=== PATIENT | male | born 1990 ===

== ENCOUNTER 2020-09-22 12:30 | Inpatient (IN) | payer MEDICAID, OTHER ==
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
[~2020-09-22] VITALS: Ht 180.3 cm; Wt 116.0 kg
[~2020-09-22 12:30] MED LIST: ACETAMINOPHEN 500 MG TAB (TYLENOL) PO PRN; ACHD5005 PO; ALPRAZolam 0.25 MG (XANAX) TAB PO PRN; APIX5TAB PO; APIXABAN 5 MG (ELIQUIS) TABLET PO SCH; ATOR40TA PO; BISACODYL 10 MG SUPP (DULCOLAX) PR PRN; CALCIUM CARBONATE 500 MG (TUMS) TAB.CHEW PO PRN; DOXYCYCLINE PO; FLEET ENEMA ADULT 1 EA BTL PR PRN; FLUO20CA42 PO; HYDROcodone/APAP 5 MG/325 MG (LORTAB) TAB PO PRN; IBUP-30 PO; IBUPROFEN TABLET 200 MG TAB PO PRN; LACO100T2 PO; LACO200T2 PO; LOPERAMIDE 2 MG (IMODIUM) TABLET PO PRN; MELATONIN 3 MG TABLET PO PRN; NF-ZONI100 PO; diphenhydrAMINE 25 MG TAB (BENADRYL) PO PRN; guaiFENesin/CODEINE (ROBITUSSIN AC) 10ML UDC PO PRN
--- NOTE | 2020-09-22 12:30 | NUR ---
WILIAN PATITO Rascon admitted to room 223-1, with an admitting diagnosis of CVA, on 09/22/20 from [facility] via [facility], accompanied by [facility] STAFF. PATITO CEDENO introduced to surroundings, call light, bed controls, phone, TV, temperature control, lights, meal times, smoking policy, visitor policy, side rail policy, bathrooms and showers. Patient Rights given to patient in the handbook. PATITO CEDENO verbalizes understanding that [facility] is not responsible for the loss or damage to any personal effects or valuables that are kept in the patient's possession during their hospitalization. The following Patient Care Plans were discussed with the PATIENT: Discharge Planning, IMPAIRED MOBILITY, UNILATERAL NEGLECT, SELF CARE DEFICIT, IMPAIRED COMMUNICATION, HIGH RISK: ASPIRATION, KNOWLEDGE DEFICIT: CVA, and DYSPHAGIA. PATITO CEDENO verbalizes understanding of Interdisciplinary Patient Education. Patient received Patient Rights Booklet, which includes Privacy Act Statement and Data Collection Information Summary.
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
[2020-09-22] MEDS: DOCUSATE SODIUM 100 MG (COLACE) CAP PO SCH ×3 (15:10→21:06)
[2020-09-22] MEDS: polyethylene glycoL POWDER 17 GM (MIRALAX) PACK PO SCH ×3 (15:10→20:14)
[2020-09-22] MEDS: SENNA W/DOCUSATE (SENOKOT S) TABLET PO SCH ×3 (15:11→21:05)
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
--- NOTE | 2020-09-22 15:53 | NUR ---
OSKAR, PHARMACIST, INFORMED THAT FAMILY IS UNABLE TO BRING IN HOME MEDICATION (VIMPAT) FOR AT LEAST 48 HOURS. OSKAR STATES THAT HE WILL WORK ON GETTING IT FROM AN OUTSIDE PHARMACY.
[2020-09-22 17:58] VITALS: BP 136/89
[2020-09-22 18:41] LABS: BASOPHILS % (AUTO) 0 % (0-10); EOSINOPHILS # (AUTO) 0.1 10^3/uL (0.0-0.3); EOSINOPHILS % (AUTO) 1 % (0-10); HEMATOCRIT 43 % (40-54); HEMOGLOBIN 14.8 g/dL (13.3-17.7); LYMPHOCYTES # (AUTO) 1.6 10^3/uL (1.0-4.0); LYMPHOCYTES % (AUTO) 19 % (12-44); MEAN CORPUSCULAR HEMOGLOBIN 31 pg (25-34); MEAN CORPUSCULAR HGB CONC 35 g/dL (32-36); MEAN CORPUSCULAR VOLUME 90 fL (80-99); MEAN PLATELET VOLUME 10.4 fL (9.0-12.2); MONOCYTES # (AUTO) 0.6 10^3/uL (0.0-1.0); MONOCYTES % (AUTO) 7 % (0-12); NEUTROPHILS # (AUTO) 6.2 10^3/uL (1.8-7.8); NEUTROPHILS % (AUTO) 73 % (42-75); PLATELET COUNT 238 10^3/uL (130-400); WHITE BLOOD COUNT 8.5 10^3/uL (4.3-11.0)
[2020-09-22 19:07] LABS: ALBUMIN 4.1 GM/DL (3.2-4.5); CHLORIDE 104 MMOL/L (98-107); POTASSIUM 4.2 MMOL/L (3.6-5.0); SODIUM 137 MMOL/L (135-145)
[2020-09-22 19:08] LABS: CALCIUM 9.1 MG/DL (8.5-10.1)
[2020-09-22 19:09] LABS: GLUCOSE 104 MG/DL (70-105)
[2020-09-22 19:10] LABS: TOTAL PROTEIN 7.2 GM/DL (6.4-8.2)
[2020-09-22 19:11] LABS: BILIRUBIN,TOTAL 0.6 MG/DL (0.1-1.0); CARBON DIOXIDE 22 MMOL/L (21-32)
[2020-09-22 19:13] LABS: ALKALINE PHOSPHATASE 76 U/L (40-136); CREATININE SERUM 0.88 MG/DL (0.60-1.30); GFR ESTIMATED > 60
[2020-09-22 19:14] LABS: BUN/CREATININE RATIO 17
[2020-09-22 19:16] LABS: ALANINE AMINOTRANSFERASE 70 U/L (0-55)
[2020-09-22] MEDS ORDERED: VIMPAT 50 MG PO NR (21:00)
[2020-09-22] MEDS ORDERED: DOXYCYCLINE 50 MG PO SCH (21:00)
[2020-09-22] MEDS ORDERED: ZONISAMIDE 100 MG CAP (ZONEGRAN) NON-FORMULARY PO SCH (21:00)
[2020-09-22] MEDS ORDERED: VIMPAT 200 MG TABLET PO NR (21:00)
[2020-09-22] MEDS: DOXYCYCLINE 100 MG (VIBRAMYCIN) TABLET PO SCH (21:06)
[2020-09-22] MEDS: APIXABAN 5 MG (ELIQUIS) TABLET PO SCH (21:06)
[2020-09-22] MEDS: ACETAMINOPHEN 325 MG TABLET PO PRN (23:40)
--- NOTE | 2020-09-23 05:47 | Individualized Plan of Care ---
Individualized Plan of Care Rehab Nursing IPOC Order Admission Date Sep 22, 2020 at 12:30 Current Orders Orders Admission Order(Inpt,Obs,Sdc) (09/21/20 20:25) Vital Signs: Per Unit Policy ( 08,16,00 (09/21/20 20:25) Ventura Urias 09,21 (09/21/20 20:25) Sequential Compression Device Q4H (09/21/20 20:25) Cage/Vault Supervisor-Inpt Rehab Con (09/21/20 20:25) Rehab Nursing Orders-Ipoc (09/21/20 20:25) Physical Therapy Rehab Orders (09/21/20 20:25) Occupational Therapy Rehab Ord (09/21/20 20:25) Speech Therapy Rehab Orders (09/21/20 20:25) Cbc With Automated Diff (09/22/20 06:00) Comprehensive Metabolic Panel (09/22/20 06:00) General/Regular (09/22/20 Breakfast) Intake & Output 06,14,22 (09/21/20 20:25) Precautions (Aru) (09/21/20 20:25) Seizure Precautions (09/21/20 20:25) Weekly Weight WEEK (09/21/20 20:25) Rehab-Intensity Of Therapy (09/21/20 20:25) Initiate Admission Nursing Pro .admission (09/21/20 20:25) Acetaminophen Tablet (Tylenol Tablet) (09/21/20 20:30) Alprazolam Tablet (Xanax Tablet) (09/21/20 20:30) Calcium Carbonate Chew Tablet (Antacid C (09/21/20 20:30) Diphenhydramine Tablet (Benadryl Tablet) (09/21/20 20:30) Docusate Sodium Capsule (Colace Capsule) (09/21/20 21:00) Docusate Sodium Capsule (Colace Capsule) (09/21/20 20:30) Bisacodyl Suppository (Dulcolax Supposit (09/21/20 20:30) Lactulose Oral Solution (Enulose Oral So (09/21/20 20:30) Na Phos/Na Biphos Enema (Fleet Enema Teo (09/21/20 20:30) Guaifenesin/Codeine Syrup (Robitussin Ac (09/21/20 20:30) Loperamide Tablet (Imodium Tablet) (09/21/20 20:30) Melatonin Tablet (Melatonin Tablet) (09/21/20 20:30) Polyethylene Glycol Powder Pkt (Miralax (09/21/20 21:00) Ondansetron Oral Dissolve Tab (Zofran (09/21/20 20:30) Senna S Tablet (Senokot S Tablet) (09/21/20 21:00) Apixaban Tablet (Eliquis Tablet) (09/21/20 21:00) Code/Resuscitation (09/21/20 20:25) Initiate Admission Nursing Pro .admission (09/21/20 20:25) Dys2 Mechanically Altered (09/22/20 Lunch) Apixaban Tablet (Eliquis Tablet) (09/22/20 21:00) Atorvastatin Tablet (Lipitor) (09/22/20 21:00) Fluoxetine Capsule (Prozac Capsule) (09/23/20 09:00) Hydrocodone/Apap 5/325 Tablet (Lortab 5 (09/22/20 12:30) Ibuprofen Tablet (Motrin Tablet) (09/22/20 12:30) Zonisamide (Non-Formulary) (Zonegran (No (09/22/20 21:00) (Nf) [Doxycycline] (09/22/20 21:00) Admission Arrival Bed Request (09/22/20 12:30) Acetaminophen Tablet/Caplet (Tylenol T (09/22/20 14:00) Doxycycline Hyclate Tablet (Vibramycin T (09/22/20 21:00) Ambulate (09/22/20 14:20) Sequential Compression Device Q4H (09/22/20 14:20) Dvt/Vte Risk - Notifiy Physici Q4H (09/22/20 14:20) Patient Visit (09/22/20 ) Speech Sound Lang Comp (09/22/20 ) Treat. Speech/Lang/Voice (09/22/20 ) Dysphagia Evaluation Std (09/22/20 ) Dysphagia Therapy (09/22/20 ) Consult Cardiology (09/22/20 16:20) (Nf) Lacosamide (Vimpat) (09/22/20 21:00) (Nf) Lacosamide (Vimpat) (09/22/20 21:00) Lacosamide Tablet (Non-Form) (Vimpat Tab (09/23/20 09:00) Lacosamide Tablet (Non-Form) (Vimpat Tab (09/23/20 10:27) Lacosamide Tablet (Non-Form) (Vimpat Tab (09/23/20 21:00) Patient Visit (09/23/20 ) Functional Activities, Ea 15 (09/23/20 ) Exercise Therap, Ea 15 Min (09/23/20 ) Patient Visit (09/23/20 ) Dysphagia Therapy (09/23/20 ) Treat. Speech/Lang/Voice (09/23/20 ) Patient May Use Own Med,Single (Patient (09/23/20 19:00) Zonisamide (Non-Formulary) (Zonegran (No (09/23/20 21:00) Lacosamide Tablet (Non-Form) (Vimpat Tab (09/23/20 21:00) Patient's Own Med(Rx Use Only) (Patient' (09/23/20 21:00) Rehab Nursing Orders: Ongoing Assess. of Cognitive Status, Ongoing Assess. of Function Status, Bladder Management, Bladder Scan, Bladder Training, Bowel Management, Bowel Training, Disease Management & Educaiton, DVT Prophylaxis, Fall Prevention, Fluid/Electrolyte/Nutrition Mgmt, Infection Prevention, Medication Management & Education, Management of Risks & Complications, Management of Skin Intergrity, Nutrition Management, Pain Management, Patient/Family Support, Safety Management, Swallow Precautions Intensity of Therapy to be met Patient to be seen: Min.3h per day/5 of 7d PT IPOC Problem List: Activity Tolerance, Functional Strength, Safety, Balance, Gait, Transfer, Bed Mobility, ROM Treatment Plan: Continue Plan of Care Bed Mobility, Education, Functional Activity Jeramy, Functional Strength, Group Therapy, Gait, Safety, Therapeutic Exercise, Transfers Treatment Duration: Oct 13, 2020 Frequency: At least 5 of 7 days/Wk (IRF) Estimated Hrs Per Day: 1.5 hours per day OT IPOC Problems: Decreased Activ Tolerance, Decreased UE Strength, Dependent Transfers, Impaired Bed Mobility, Impaired Cognition, Impaired Coordination, Impaired Funct Balance, Impaired I ADL's, Impaired Self-Care Skills, Restricted Funct UE ROM, Visual-Perceptual Deficit OT Treatment, Training and Edu: Yes Plan of Care: ADL Retraining, Functional Mobility, UE Funct Exercise/Act, UE Neuromus Re-Ed/Coord Treatment Duration: Oct 20, 2020 Frequency: At least 5 of 7 days/Wk (IRF) Estimated Hrs Per Day: 1.[address] IPOC Speech Therapy Treatment Plan: Continue Plan of Care Treatment Duration: Oct 12, 2020 Frequency: 4 times per week (Patient will receive skilled ST 4 to 5x per week) Estimated Hrs Per Day: .5 hour per day Cage/Vault Supervisor/Case Mgmt Cage/Vault Supervisor/Case Managemen: Discharge Planning Dietitian/Airworthiness Safety Inspector Dietitian/Airworthiness Safety Inspector to monitor nutritional status and make changes and/or recommendations as needed and work with speech pathology on dietary upgrades as the occur. Physician IPOC Medical Issues being managed closely and that require the 24 hour availability of a physician: Recent catastrophic CVA with severe deficits along with chronic seizure hx now on OAC and needs PFO repaired will be at high risk for decompensation Medical Issues: Bowel/Bladder Function, DVT Prophylaxis, Falls Precautions, Fluid/Electrolyte/Nutrition Balance, Infection Protection, Pain Management, Swallowing Precautions Brief Synthesis of Preadmission Screen, Post-Admission Evaluation, and Therapy Evaluations: PT OT ST will focus on regaining more function and resolving deficits from CVA while increasing the use of assistive devices in order to return home with family Medical Prognosis: Fair Anticipated Length of Stay: 14 days JEB GAMING DO Sep 23, 2020 05:47
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
[2020-09-23 05:58] VITALS: BP 118/78
[2020-09-23] MEDS: ACETAMINOPHEN 325 MG TABLET PO PRN (06:25)
[2020-09-23] MEDS: DOCUSATE SODIUM 100 MG (COLACE) CAP PO SCH ×2 (08:44→19:34)
[2020-09-23] MEDS: APIXABAN 5 MG (ELIQUIS) TABLET PO SCH ×2 (08:45→20:46)
[2020-09-23] MEDS: SENNA W/DOCUSATE (SENOKOT S) TABLET PO SCH ×2 (08:45→19:34)
[2020-09-23] MEDS: polyethylene glycoL POWDER 17 GM (MIRALAX) PACK PO SCH ×2 (08:45→19:34)
[2020-09-23] MEDS: FLUoxetine HCL 20 MG (PROzac) CAP PO SCH (08:46)
[2020-09-23] MEDS ORDERED: LACOSAMIDE 100 MG PO SCH ×3 (09:00→21:00)
--- NOTE | 2020-09-23 11:53 | Occupational Ther Daily Note ---
OT Current Status-Daily Note Subjective Pt. attempts to verbalize a need, and becomes frustrated that he is not able to state what he wants to. Appearance Pt. up in wheelchair with PT. Agrees to therapy. Mental Status/Objective Patient Orientation: Person ADL-Treatment Therapy Code Descriptions/Definitions Functional [place] Measure: 0=Not Assessed/NA 4=Minimal Assistance 1=Total Assistance 5=Supervision or Setup 2=Maximal Assistance 6=Modified [place] 3=Moderate Assistance 7=Complete IndependenceSCALE: Activities may be completed with or without assistive devices. 4-Wosyrelogm-dogmulb completes the activity by him/herself with no assistance from a helper. 5-Set-up or Clean-up Assistance-helper sets up or cleans up; patient completes activity. [place] assists only prior to or following the activity. 4-Supervision or Touching Assistance-helper provides verbal cues and/or touching/steadying and/or contact guard assistance as patient completes activity. Assistance may be provided throughout the activity or intermittently. 3-Partial/Moderate Assistance-helper does LESS THAN HALF the effort. [place] lifts, holds or supports trunk or limbs, but provides less than half the effort. 2-Substantial/Maximal Assistance-helper does MORE THAN HALF the effort. [place] lifts or holds trunk or limbs and provides more than half the effort. 2-Ygxhouomv-nuqoaq does ALL the effort. Patient does none of the effort to complete the activity. Or, the assistance of 2 or more helpers is required for the patient to complete the activity. If activity was not attempted, code reason: 7-Patient Refused. 9-Not Applicable-not attempted and the patient did not perform the activity before the current illness, exacerbation or injury. 10-Not Attempted due to Environmental Limitations-(lack of equipment, weather restraints, etc.). 88-Not Attempted due to Medical Conditions or Safety Concerns. Upper Body Dressing (QC): 4 (SBA seated on side of mat to doff and don shirt. Pt. educated in one arm method, and was able to replicate.) OT/PT co-treat due to need of skilled assistance x 2 for mobility/transfers, and ADL skills. OT addressed right UE and ADLs while PT facilitated weight shifts, mobility, and transfers. Pt. transferred to mat with min assist, with cues to keep weight off right LE. Required mod assist for sit to/from supine. Pt. sat on side of bed and PT educated on shifting weight/attending to right side while OT assisted pt. with shirt and with shaving task. Pt. able to cross midline with left UE while shaving items were placed on right. Pt. able to shave all parts, with assistance from OT to shave face more thoroughly. OT completed gentle PROM to right UE in all planes. No pain noted. No active movement noted. Pt. transferred to wheelchair with min assist, and propelled back to room with cues and min assist at times. Transferred to bed with min assist and completed sit-supine with mod assist. All needs met. Education OT Patient Education: Correct positioning, Exercise program, Modified ADL techniques, Progress toward Goal/Update tx plan, Purpose of tx/functional activities, Reviewed precautions, Rehab process, Transfer techniques Teaching Recipient: Patient Teaching Methods: Demonstration, Discussion Response to Teaching: Verbalize Understanding, Return Demonstration OT Short Term Goals Short Term Goals Time Frame: Oct 06, 2020 Eatin Oral hygiene: 3 Toileting hygiene: 3 Shower/bathe self: 3 Upper body dressin Lower body dressin Putting on/taking off footwear: 3 OT Ornamental Rail Installer Goals Ornamental Rail Installer Goals Time Frame: Oct 20, 2020 Eating (QC): 6 Oral Hygiene (QC): 6 Toileting Hygiene (QC): 4 Shower/Bathe Self (QC): 4 Upper Body Dressing (QC): 5 Lower Body Dressing (QC): 4 On/Off Footwear (QC): 4 Additional Goals: 1-Demonstrate ADL Tasks, 2-Verbalize Understanding, 3-ImproveStrength/Jeramy 1=Demonstrate adherence to instructed precautions during ADL tasks. 2=Patient will verbalize/demonstrate understanding of assistive devices/modifications for ADL. 3=Patient will improve strength/tolerance for activity to enable patient to perform ADL's. OT Education/Plan Problem List/Assessment Assessment: Decreased Activ Tolerance, Decreased UE Strength, Dependent Transfers, Impaired Bed Mobility, Impaired Cognition, Impaired Coordination, Impaired Funct Balance, Impaired I ADL's, Impaired Self-Care Skills, Restricted Funct UE ROM, Visual-Perceptual Deficit Discharge Recommendations Plan/Recommendations: Continue POC Therapy Discharge Recommendati: Post Acute OT Treatment Plan/Plan of Care Treatment,Training & Education: Yes Patient would benefit from OT for education, treatment and training to promote independence in ADL's, mobility, safety and/or upper extremity function for ADL's. Plan of Care: ADL Retraining, Functional Mobility, UE Funct Exercise/Act, UE Neuromus Re-Ed/Coord Treatment Duration: Oct 20, 2020 Frequency: At least 5 of 7 days/Wk (IRF) Estimated Hrs Per Day: 1.5 hours per day Agreement: Yes Rehab Potential: Good Time/GCodes Start Time: 09:00 Stop Time: 10:15 Total Time Billed (hr/min): 75 Billed Treatment Time 1, ADL x 30minutes, FA x 15minutes, Ex x 30minutes AMISH ROBERTO OT Sep 23, 2020 11:53
--- NOTE | 2020-09-23 13:22 | NUR ---
RD ASSESSMENT PMHx: TBI; seizure disorder; stroke; PT INTERACTION: Pt was awake and pleasant during nutrition assessment. Pt states current appetite is "fine." Note PO intake 75% x1meal, per chart review. Pt states following a regular diet at home, and has no issues with chewing/swallowing food. Note pt has hx of TBI and stroke, and is currently on DYS2 Mechanically Altered diet, with Sweet Water Thick Liquids. Pt states no recent issues with nausea, vomiting, constipation, or diarrhea. Note last BM was 09/23 and pt currently on bowel regimen of colace BID, senna BID, and miralax BID, per chart review. Pt states no recent wt changes. Note unable to determine recent wt hx, per chart review. ABNORMAL NUTRITION-RELATED LAB VALUES LOW: HIGH: AST 40; ALT 70; Est. kcal needs: 2368-9867 kcal | 15-18 kcal/kg Est. Pro needs: 94-117 g Pro | 0.8-1.0 g Pro/kg PES STATEMENT: Swallowing difficulty (NC-1.1) related to motor causes from neurological disorder as evidenced by chart review, and PMH of stroke. INTERVENTION: Continue with current diet order of DYS2 Mechanically Altered diet, with modifier of Sweet Water-Thick liquids. Will continue to follow and reassess as pt needs, intake, and status change. Freedom BAEZA, MS RD LD [phone] cell
--- NOTE | 2020-09-23 13:29 | Speech Therapy Daily Note ---
Speech Daily Progress Note Subjective Date Seen by Provider: Sep 23, 2020 Time Seen by Provider: 00:30 Patient was resting in his bed following his OT and PT session. Objective Patient completed a series of questions using a communication board and his personal information printed out with 50% given mod to max cues and repetitions. Assessment Assessment Current Status: Fair Progress Treatment Plan Continue Plan of Care Speech Short Term Goals Short Term Goals Short Term Goals 1) Patient will tolerate least restrictive diet level without s/s of aspiration at 80% or greater with minimal cues. 2) Patient will utilize compensatory strategies as trained at 80% or greater with minima cues. 3) Patient will follow multi step commands with 90% or greater with minimal cues. 4) Patient will utilize communication board to assist with meeting wants/needs with moderate cue.s Speech Meter Setter Goals Meter Setter Goals Patient will maintain adequate nutrition/hydration via safe effective swallow function. Patient will participate in ongoing assessment for functional level of language abilities. Speech-Plan Patient/Family Goals Patient/Family Goals: Patient plans on returning home, however this may not be realistic based on his current health needs. Treatment Plan Speech Therapy Treatment Plan: Continue Plan of Care Treatment Duration: Oct 12, 2020 Frequency: 4 times per week (Patient will receive skilled ST 4 to 5x per week) Estimated Hrs Per Day: .5 hour per day Rehab Potential: Good Barriers to Learning: Patient's global aphasia Pt/Family Agrees to Plan: Yes Safety Risks/Education Teaching Recipient: Patient Teaching Methods: Demonstration, Discussion Response to Teaching: Verbalize Understanding, Return Demonstration Education Topics Provided: Safety within his room, utilization of communication tools, Continued safety with oral intake Time Speech Therapy Time In: 10:30 Speech Therapy Time Out: 11:00 Total Billed Time: 30 Billed Treatment Time 1, SLSANDRINE, DYST DENISE Perdomo Sep 23, 2020 13:29
--- NOTE | 2020-09-23 13:31 | Physical Therapy Daily Note ---
PT Daily Note-Current Subjective Patient in bed pre tx, agrees to PT, has unrated pain in right side, will be co- treating with OT due to poor patient mobility, strength, endurance, poor balance, right hemiparesis, safety and decrease risk of falling, coordinate UE and LE during activity. Appearance Patient in WC post tx, will continue for a bit with OT Mental Status Patient Orientation: Person, Unable to Assess, Non-Verbal/Aphasic Transfers SCALE: Activities may be completed with or without assistive devices. 3-Zuhuisrpqa-qjkydmm completes the activity by him/herself with no assistance from a helper. 5-Set-up or Clean-up Assistance-helper sets up or cleans up; patient completes activity. [place] assists only prior to or following the activity. 4-Supervision or Touching Assistance-helper provides verbal cues and/or touching/steadying and/or contact guard assistance as patient completes activity. Assistance may be provided throughout the activity or intermittently. 3-Partial/Moderate Assistance-helper does LESS THAN HALF the effort. [place] lifts, holds or supports trunk or limbs, but provides less than half the effort. 2-Substantial/Maximal Assistance-helper does MORE THAN HALF the effort. [place] lifts or holds trunk or limbs and provides more than half the effort. 4-Xamiqbxyd-efqaic does ALL the effort. Patient does none of the effort to complete the activity. Or, the assistance of 2 or more helpers is required for the patient to complete the activity. If activity was not attempted, code reason: 7-Patient Refused. 9-Not Applicable-not attempted and the patient did not perform the activity before the current illness, exacerbation or injury. 10-Not Attempted due to Environmental Limitations-(lack of equipment, weather restraints, etc.). 88-Not Attempted due to Medical Conditions or Safety Concerns. Roll Left & Right (QC): 3 Sit to Lying (QC): 3 Lying to Sitting/Side of Bed(Q: 3 Sit to Stand (QC): 3 Chair/Twd-qs-Eqnmy Xfer(QC): 3 Patient supine to sit, put on shorts with max assist, stands and pulls up shorts with mod assist, stand pivot transfer to with min assist, in hallway and to therapy gym, transfer to therapy table, lay down, adjust his right knee brace, sit back up and then assist with ADL's Weight Bearing Non Weight Bearing right leg brace to be on at all times, knee flexion limited to 90 degrees Wheelchair Training Wheel 50 ft with 2 turns (QC): 4 Wheel 150 ft (QC): 4 Type of Wheelchair: Manual 300' Treatments PT performed bed mobility and transfers, WC mobility, balance and positioning during ADL's, OT performed ADL's and UE positioning and safety during activity. Assessment Current Status: Fair Progress improved transfers, less bearing weight on right leg PT Short Term Goals Short Term Goals Time Frame: Sep 29, 2020 Roll Left & Right: 4 Sit to lyin Lying to sitting on side of be: 4 Sit to stand: 4 Chair/qbc-gz-zkodh transfer: 4 Wheel 50ft w/2 turns: 4 Wheel 150 feet: 4 PT Gill Box Tender Goals [facility] Goals PT [facility] Goals Time Frame: Oct 13, 2020 Roll Left & Right (QC): 4 (SBA) Sit to Lying (QC): 4 (SBA) Lying-Sitting on Side/Bed(QC): 4 (SBA) Sit to Stand (QC): 4 (SBA) Chair/Qgd-xg-Wiqxy Xfer(QC): 4 (SBA) Toilet Transfer (QC): 4 (SBA) Car Transfer (QC): 4 (SBA) Does the Patient Walk: No and Walking Goal NOT indicated Walk 10 feet (QC): 88 Walk 50ft with 2 Turns (QC): 88 Walk 150 ft (QC): 88 Walking 10ft on Uneven Surface: 88 1 Step (curb) (QC): 88 4 Steps (QC): 88 12 Steps (QC): 88 Picking up an Object (QC): 88 Wheel 50 feet with 2 turns (QC: 6 Wheel 150 feet: 6 PT Plan Problem List Problem List: Activity Tolerance, Functional Strength, Safety, Balance, Gait, Transfer, Bed Mobility, ROM Treatment/Plan Treatment Plan: Continue Plan of Care Treatment Plan: Bed Mobility, Education, Functional Activity Jeramy, Functional Strength, Group Therapy, Gait, Safety, Therapeutic Exercise, Transfers Treatment Duration: Oct 13, 2020 Frequency: At least 5 of 7 days/Wk (IRF) Estimated Hrs Per Day: 1.5 hours per day Patient and/or Family Agrees t: Yes Safety Risks/Education Patient Education: Transfer Techniques, Reviewed Precautions, Correct Positioning, W/C Management, Safety Issues Teaching Recipient: Patient Teaching Methods: Demonstration, Discussion Response to Teaching: Reinforcement Needed Time/GCodes Time In: 0900 Time Out: 1000 Total Billed Treatment Time: 60 Total Billed Treatment 1 visit FA 60' co-treated with OT for 60' RACHEL LOPEZ PT Sep 23, 2020 13:31
--- NOTE | 2020-09-23 13:35 | Physical Therapy Daily Note ---
PT Daily Note-Current Subjective Patient in recliner pre tx, agrees to PT, has no complaints of pain at rest. Appearance Patient in recliner post tx with nurse call, phone, tray, all needs met. Mental Status Patient Orientation: Normal For Age Transfers SCALE: Activities may be completed with or without assistive devices. 9-Jaeutmwwkf-yemrzzv completes the activity by him/herself with no assistance from a helper. 5-Set-up or Clean-up Assistance-helper sets up or cleans up; patient completes activity. [place] assists only prior to or following the activity. 4-Supervision or Touching Assistance-helper provides verbal cues and/or touch ing/steadying and/or contact guard assistance as patient completes activity. Assistance may be provided throughout the activity or intermittently. 3-Partial/Moderate Assistance-helper does LESS THAN HALF the effort. [place] lifts, holds or supports trunk or limbs, but provides less than half the effort. 2-Substantial/Maximal Assistance-helper does MORE THAN HALF the effort. [place] lifts or holds trunk or limbs and provides more than half the effort. 1-Bzvzszbtg-mzzlrq does ALL the effort. Patient does none of the effort to complete the activity. Or, the assistance of 2 or more helpers is required for the patient to complete the activity. If activity was not attempted, code reason: 7-Patient Refused. 9-Not Applicable-not attempted and the patient did not perform the activity before the current illness, exacerbation or injury. 10-Not Attempted due to Environmental Limitations-(lack of equipment, weather restraints, etc.). 88-Not Attempted due to Medical Conditions or Safety Concerns. Weight Bearing Non Weight Bearing right leg brace to be on at all times, knee flexion limited to 90 degrees Exercises Supine Ex: Ankle pumps, Quad Set, Glut sets, Heel Slides, Short Arc Quads, Straight leg raise, Hip abd/add Supine Reps: 20 (done in recliner with legs elevated) Seated Therapy Exercises: Ankle pumps, Long arc quads, Hip flexion Seated Reps: 20 Treatments LE exercise Assessment Current Status: Fair Progress improving LE strength PT Short Term Goals Short Term Goals Time Frame: Sep 29, 2020 Roll Left & Right: 4 Sit to lyin Lying to sitting on side of be: 4 Sit to stand: 4 Chair/yks-fb-vqsil transfer: 4 Wheel 50ft w/2 turns: 4 Wheel 150 feet: 4 PT Instructional Systems Specialist Goals Instructional Systems Specialist Goals PT Group Home Goals Time Frame: Oct 13, 2020 Roll Left & Right (QC): 4 (SBA) Sit to Lying (QC): 4 (SBA) Lying-Sitting on Side/Bed(QC): 4 (SBA) Sit to Stand (QC): 4 (SBA) Chair/Dzt-ix-Blpfr Xfer(QC): 4 (SBA) Toilet Transfer (QC): 4 (SBA) Car Transfer (QC): 4 (SBA) Does the Patient Walk: No and Walking Goal NOT indicated Walk 10 feet (QC): 88 Walk 50ft with 2 Turns (QC): 88 Walk 150 ft (QC): 88 Walking 10ft on Uneven Surface: 88 1 Step (curb) (QC): 88 4 Steps (QC): 88 12 Steps (QC): 88 Picking up an Object (QC): 88 Wheel 50 feet with 2 turns (QC: 6 Wheel 150 feet: 6 PT Plan Problem List Problem List: Activity Tolerance, Functional Strength, Safety, Balance, Gait, Transfer, Bed Mobility, ROM Treatment/Plan Treatment Plan: Continue Plan of Care Treatment Plan: Bed Mobility, Education, Functional Activity Jeramy, Functional Strength, Group Therapy, Gait, Safety, Therapeutic Exercise, Transfers Treatment Duration: Oct 13, 2020 Frequency: At least 5 of 7 days/Wk (IRF) Estimated Hrs Per Day: 1.5 hours per day Patient and/or Family Agrees t: Yes Safety Risks/Education Patient Education: Correct Positioning, Safety Issues Teaching Recipient: Patient Teaching Methods: Demonstration, Discussion Response to Teaching: Reinforcement Needed Time/GCodes Time In: 1300 Time Out: 1330 Total Billed Treatment Time: 30 Total Billed Treatment 1 visit EX 30' RACHEL LOPEZ PT Sep 23, 2020 13:35
--- NOTE | 2020-09-23 13:57 | Physical Therapy Daily Note ---
PT Daily Note-Current Subjective Patient in bed pre tx, agrees to PT, has no complaints of pain at rest. Needs right brace adjusting. Appearance Patient in bed post tx with nurse call, phone, tray, all needs met. Mental Status Patient Orientation: Person, Unable to Assess, Non-Verbal/Aphasic Transfers SCALE: Activities may be completed with or without assistive devices. 4-Elyrdpprqk-lszouoi completes the activity by him/herself with no assistance from a helper. 5-Set-up or Clean-up Assistance-helper sets up or cleans up; patient completes activity. [place] assists only prior to or following the activity. 4-Supervision or Touching Assistance-helper provides verbal cues and/or touching/steadying and/or contact guard assistance as patient completes activity. Assistance may be provided throughout the activity or intermittently. 3-Partial/Moderate Assistance-helper does LESS THAN HALF the effort. [place] lifts, holds or supports trunk or limbs, but provides less than half the effort. 2-Substantial/Maximal Assistance-helper does MORE THAN HALF the effort. [place] lifts or holds trunk or limbs and provides more than half the effort. 3-Mlacbbfxq-nfhkxh does ALL the effort. Patient does none of the effort to complete the activity. Or, the assistance of 2 or more helpers is required for the patient to complete the activity. If activity was not attempted, code reason: 7-Patient Refused. 9-Not Applicable-not attempted and the patient did not perform the activity before the current illness, exacerbation or injury. 10-Not Attempted due to Environmental Limitations-(lack of equipment, weather restraints, etc.). 88-Not Attempted due to Medical Conditions or Safety Concerns. Weight Bearing Non Weight Bearing right leg brace to be on at all times, knee flexion limited to 90 degrees Exercises Supine Ex: Quad Set, Glut sets Supine Reps: 20 (attempted 20 but patient doesn't seem to have an active contraction of glutes or quads on the right side) RLE PROM (limit knee flexion to 90 degrees), extra time spent on dorsiflexion, he is still able to achieve neutral but will be susceptible to tightness since he is NWB and non-ambulatory at this time Treatments LE exercise, stretching Assessment Current Status: Poor Progress flaccid right leg PT Short Term Goals Short Term Goals Time Frame: Sep 29, 2020 Roll Left & Right: 4 Sit to lyin Lying to sitting on side of be: 4 Sit to stand: 4 Chair/gdp-cm-ijral transfer: 4 Wheel 50ft w/2 turns: 4 Wheel 150 feet: 4 PT Traveling Nurse Goals Traveling Nurse Goals PT Traveling Nurse Goals Time Frame: Oct 13, 2020 Roll Left & Right (QC): 4 (SBA) Sit to Lying (QC): 4 (SBA) Lying-Sitting on Side/Bed(QC): 4 (SBA) Sit to Stand (QC): 4 (SBA) Chair/Ohw-wb-Seous Xfer(QC): 4 (SBA) Toilet Transfer (QC): 4 (SBA) Car Transfer (QC): 4 (SBA) Does the Patient Walk: No and Walking Goal NOT indicated Walk 10 feet (QC): 88 Walk 50ft with 2 Turns (QC): 88 Walk 150 ft (QC): 88 Walking 10ft on Uneven Surface: 88 1 Step (curb) (QC): 88 4 Steps (QC): 88 12 Steps (QC): 88 Picking up an Object (QC): 88 Wheel 50 feet with 2 turns (QC: 6 Wheel 150 feet: 6 PT Plan Problem List Problem List: Activity Tolerance, Functional Strength, Safety, Balance, Gait, Transfer, Bed Mobility, ROM Treatment/Plan Treatment Plan: Continue Plan of Care Treatment Plan: Bed Mobility, Education, Functional Activity Jeramy, Functional Strength, Group Therapy, Gait, Safety, Therapeutic Exercise, Transfers Treatment Duration: Oct 13, 2020 Frequency: At least 5 of 7 days/Wk (IRF) Estimated Hrs Per Day: 1.5 hours per day Patient and/or Family Agrees t: Yes Safety Risks/Education Patient Education: Correct Positioning, Safety Issues Teaching Recipient: Patient Teaching Methods: Demonstration, Discussion Response to Teaching: Reinforcement Needed Time/GCodes Time In: 1340 Time Out: 1355 Total Billed Treatment Time: 15 Total Billed Treatment 1 visit EX RACHEL FERNANDEZ PT Sep 23, 2020 13:57
[2020-09-23 18:00] VITALS: BP 120/77
--- NOTE | 2020-09-23 18:09 | NUR ---
CM/SS ADMISSION Patient was admitted to ARU 09/22 from [facility] for CVA with right sided deficits. He presented to [facility] 09/12 and was transferred to higher level of care at . Information was obtained from his sister Ana Romero and his SO Marryrekha Yoon. Patient reportedly resided home alone and functioned independently prior to acute onset CVA. The communicated goal is for patient to return to a home environment with whatever supports are needed, DME as well as personal care. PCP: Dr. Geri Pabon, DO [place], [place] [phone] PHARMACY: [facility] on the [place], [place] INSURANCE: [employer], Medicaid [place] DME: Not clarified. Family members are exploring what patient will need and intend to move forward in getting a ramp. Other assistive devices to be determined by therapy team. BARRIERS TO DISCHARGE: Family/supports have communicated being very motivated to prepare patient's home for his return. He resides in an older home with the usual narrow doorways, wheelchair accessibility discussed. Patient functional level will determine level of personal attendance and care needed. Insurance somewhat limiting historically. CONTACTS: Denisse Romero, Mother [address] [place] [address] Shreya Romero, sister Recently moved [phone] [address] Romero [address] [place] [address] Marry Yoon, [place] [phone] Ana and Marry understood the purpose and process of the weekly patient care conference and that patient's first review would be September 28.
[2020-09-23] MEDS ORDERED: PATIENT MAY USE OWN MED,SINGLE MED PO SCH (19:00)
[2020-09-23] MEDS: DOXYCYCLINE 100 MG (VIBRAMYCIN) TABLET PO SCH (20:46)
[2020-09-23] MEDS: ZONISAMIDE 100 MG CAP (ZONEGRAN) NON-FORMULARY PO SCH (20:48)
[2020-09-23] MEDS: LACOSAMIDE 100 MG PO SCH (20:49)
[2020-09-23] MEDS: VIMPAT 200 MG TABLET PO SCH (20:49)
[2020-09-24 05:26] VITALS: BP 115/77
[2020-09-24] MEDS: polyethylene glycoL POWDER 17 GM (MIRALAX) PACK PO SCH ×2 (09:00→19:38)
[2020-09-24] MEDS: SENNA W/DOCUSATE (SENOKOT S) TABLET PO SCH ×2 (09:00→19:38)
[2020-09-24] MEDS: DOCUSATE SODIUM 100 MG (COLACE) CAP PO SCH ×2 (09:00→19:38)
[2020-09-24] MEDS: FLUoxetine HCL 20 MG (PROzac) CAP PO SCH (09:42)
[2020-09-24] MEDS: APIXABAN 5 MG (ELIQUIS) TABLET PO SCH ×2 (09:42→20:19)
[2020-09-24] MEDS: VIMPAT 200 MG TABLET PO SCH ×2 (09:44→20:20)
[2020-09-24] MEDS: LACOSAMIDE 100 MG PO SCH ×2 (09:46→20:21)
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
--- NOTE | 2020-09-24 11:52 | Physical Therapy Daily Note ---
PT Daily Note-Current Subjective Pt in chair, agreeable to PT. Requested back to bed "for a little bit" post treatment. Denied pain. (R) LE IROM brace repositioned. Mental Status Patient Orientation: Person, Non-Verbal/Aphasic Attachments: Other-See Comments IROM (R) LE Transfers SCALE: Activities may be completed with or without assistive devices. 5-Vgtdxqfzky-dddvaxm completes the activity by him/herself with no assistance from a helper. 5-Set-up or Clean-up Assistance-helper sets up or cleans up; patient completes activity. [place] assists only prior to or following the activity. 4-Supervision or Touching Assistance-helper provides verbal cues and/or touching/steadying and/or contact guard assistance as patient completes activity. Assistance may be provided throughout the activity or intermittently. 3-Partial/Moderate Assistance-helper does LESS THAN HALF the effort. [place] lifts, holds or supports trunk or limbs, but provides less than half the effort. 2-Substantial/Maximal Assistance-helper does MORE THAN HALF the effort. [place] lifts or holds trunk or limbs and provides more than half the effort. 7-Qnzvtjzwc-fbdker does ALL the effort. Patient does none of the effort to complete the activity. Or, the assistance of 2 or more helpers is required for the patient to complete the activity. If activity was not attempted, code reason: 7-Patient Refused. 9-Not Applicable-not attempted and the patient did not perform the activity before the current illness, exacerbation or injury. 10-Not Attempted due to Environmental Limitations-(lack of equipment, weather restraints, etc.). 88-Not Attempted due to Medical Conditions or Safety Concerns. Sit to Lying (QC): 4 Sit to Stand (QC): 1 Chair/Zsh-ax-Kfpyp Xfer(QC): 3 Sit<->stand with mod A x 2, NWB on (R) LE. Assist to attain standing position then able to find midline and balance. Assist x 2 to control descent to chair. SPT to (L) to return to bed with mod A x 1, NWB on (R) LE. Sit->supine: assist with (R) LE. In bed with all needs met post treatment. Weight Bearing Right Lower Extremity: Right Non Weight Bearing Left Lower Extremity: Left Full Weight Bearing right leg brace to be on at all times, knee flexion limited to 90 degrees Exercises Supine Ex: Ankle pumps, Quad Set, Glut sets, Straight leg raise Supine Reps: 12 DF PROM on (R) with gastroc stretch. Attempted QS and GS on (R) LE, no active movement noted. (L) LE AP, QS, SLR x 12 each. Treatments Transfer training with NWB on (R) LE. Returned to bed with all needs met. Assessment Current Status: Poor Progress No active movement on (R) LE during treatment today. PT Short Term Goals Short Term Goals Time Frame: Sep 29, 2020 Roll Left & Right: 4 Sit to lyin Lying to sitting on side of be: 4 Sit to stand: 4 Chair/jwi-mj-rvoez transfer: 4 Wheel 50ft w/2 turns: 4 Wheel 150 feet: 4 PT Penitentiary Goals Penitentiary Goals PT Penitentiary Goals Time Frame: Oct 13, 2020 Roll Left & Right (QC): 4 (SBA) Sit to Lying (QC): 4 (SBA) Lying-Sitting on Side/Bed(QC): 4 (SBA) Sit to Stand (QC): 4 (SBA) Chair/Weu-ee-Ypxgi Xfer(QC): 4 (SBA) Toilet Transfer (QC): 4 (SBA) Car Transfer (QC): 4 (SBA) Does the Patient Walk: No and Walking Goal NOT indicated Walk 10 feet (QC): 88 Walk 50ft with 2 Turns (QC): 88 Walk 150 ft (QC): 88 Walking 10ft on Uneven Surface: 88 1 Step (curb) (QC): 88 4 Steps (QC): 88 12 Steps (QC): 88 Picking up an Object (QC): 88 Wheel 50 feet with 2 turns (QC: 6 Wheel 150 feet: 6 PT Plan Problem List Problem List: Activity Tolerance, Functional Strength, Safety, Balance, Gait, Transfer, Bed Mobility, ROM Treatment/Plan Treatment Plan: Continue Plan of Care Treatment Plan: Bed Mobility, Education, Functional Activity Jeramy, Functional Strength, Group Therapy, Gait, Safety, Therapeutic Exercise, Transfers Treatment Duration: Oct 13, 2020 Frequency: At least 5 of 7 days/Wk (IRF) Estimated Hrs Per Day: 1.5 hours per day Patient and/or Family Agrees t: Yes Time/GCodes Time In: 1121 Time Out: 1141 Total Billed Treatment Time: 20 Total Billed Treatment 1, FA x 20' HOLLEY HARDIN DPNeeru Sep 24, 2020 11:52
[2020-09-24 17:19] VITALS: BP 121/82
[2020-09-24] MEDS: DOXYCYCLINE 100 MG (VIBRAMYCIN) TABLET PO SCH (20:19)
[2020-09-24] MEDS: ZONISAMIDE 100 MG CAP (ZONEGRAN) NON-FORMULARY PO SCH (20:21)
[2020-09-25] MEDS: ACETAMINOPHEN 325 MG TABLET PO PRN (01:36)
[2020-09-25 05:10] VITALS: BP 120/81
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
[2020-09-25] MEDS: APIXABAN 5 MG (ELIQUIS) TABLET PO SCH ×2 (08:52→20:03)
[2020-09-25] MEDS: FLUoxetine HCL 20 MG (PROzac) CAP PO SCH (08:52)
[2020-09-25] MEDS: VIMPAT 200 MG TABLET PO SCH ×2 (08:54→20:02)
[2020-09-25] MEDS: LACOSAMIDE 100 MG PO SCH ×2 (08:55→20:01)
[2020-09-25] MEDS: DOCUSATE SODIUM 100 MG (COLACE) CAP PO SCH (08:57)
[2020-09-25] MEDS: SENNA W/DOCUSATE (SENOKOT S) TABLET PO SCH (08:57)
[2020-09-25] MEDS: polyethylene glycoL POWDER 17 GM (MIRALAX) PACK PO SCH (08:57)
[2020-09-25 17:29] VITALS: BP 124/82
[2020-09-25] MEDS ORDERED: DOCUSATE SODIUM 100 MG (COLACE) CAP PO PRN (19:00)
[2020-09-25] MEDS ORDERED: polyethylene glycoL POWDER 17 GM (MIRALAX) PACK PO PRN (19:00)
[2020-09-25] MEDS: DOXYCYCLINE 100 MG (VIBRAMYCIN) TABLET PO SCH (20:01)
[2020-09-25] MEDS: ZONISAMIDE 100 MG CAP (ZONEGRAN) NON-FORMULARY PO SCH (20:02)
[2020-09-25] MEDS: ONDANSETRON 4 MG (ZOFRAN) ORAL DISSOLVE TAB PO PRN (21:02)
--- NOTE | 2020-09-25 21:02 | NUR ---
Pt vomited approx 50cc clear emesis with some undigested food in it. Zofran ODT given at this time. Cont to monitor.
--- NOTE | 2020-09-25 22:37 | NUR ---
Resting quietly in bed with no distress/discomfort noted. Resp even and unlabored. Cont to monitor.
[2020-09-26 05:15] VITALS: BP 123/79
[2020-09-26 06:04] LABS: BASOPHILS % (AUTO) 0 % (0-10); EOSINOPHILS # (AUTO) 0.1 10^3/uL (0.0-0.3); EOSINOPHILS % (AUTO) 1 % (0-10); HEMATOCRIT 44 % (40-54); HEMOGLOBIN 15.1 g/dL (13.3-17.7); LYMPHOCYTES % (AUTO) 22 % (12-44); MEAN CORPUSCULAR HEMOGLOBIN 31 pg (25-34); MEAN CORPUSCULAR HGB CONC 34 g/dL (32-36); MEAN CORPUSCULAR VOLUME 90 fL (80-99); MEAN PLATELET VOLUME 10.6 fL (9.0-12.2); MONOCYTES # (AUTO) 0.6 10^3/uL (0.0-1.0); MONOCYTES % (AUTO) 7 % (0-12); NEUTROPHILS # (AUTO) 6.4 10^3/uL (1.8-7.8); NEUTROPHILS % (AUTO) 70 % (42-75); PLATELET COUNT 229 10^3/uL (130-400); WHITE BLOOD COUNT 9.1 10^3/uL (4.3-11.0)
[2020-09-26 06:20] LABS: ALBUMIN 4.1 GM/DL (3.2-4.5); CHLORIDE 104 MMOL/L (98-107); POTASSIUM 3.9 MMOL/L (3.6-5.0); SODIUM 137 MMOL/L (135-145)
[2020-09-26 06:21] LABS: CALCIUM 9.2 MG/DL (8.5-10.1)
[2020-09-26 06:23] LABS: GLUCOSE 97 MG/DL (70-105)
[2020-09-26 06:24] LABS: CARBON DIOXIDE 23 MMOL/L (21-32)
[2020-09-26 06:25] LABS: BILIRUBIN,TOTAL 0.6 MG/DL (0.1-1.0)
[2020-09-26 06:26] LABS: ALKALINE PHOSPHATASE 75 U/L (40-136); CREATININE SERUM 0.84 MG/DL (0.60-1.30); GFR ESTIMATED > 60
[2020-09-26 06:27] LABS: BUN/CREATININE RATIO 19
[2020-09-26 06:29] LABS: ALANINE AMINOTRANSFERASE 101 U/L (0-55)
[2020-09-26] MEDS: APIXABAN 5 MG (ELIQUIS) TABLET PO SCH ×2 (08:31→20:49)
[2020-09-26] MEDS: FLUoxetine HCL 20 MG (PROzac) CAP PO SCH (08:31)
[2020-09-26] MEDS: LACOSAMIDE 100 MG PO SCH ×2 (08:32→20:50)
[2020-09-26] MEDS: VIMPAT 200 MG TABLET PO SCH ×2 (08:32→20:50)
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
--- NOTE | 2020-09-26 10:50 | Progress Note - Cardiology ---
Cardiology SOAP Progress Note Subjective: In bed No c/o Objective: I&O/Vital Signs 10/11/20 06:00 Temp 36.2 Pulse 65 Resp 18 B/P (MAP) 104/68 (80) Pulse Ox 98 O2 Delivery Room Air 10/10/20 23:59 Intake Total 1100 ml Balance 1100 ml Constitutional: well-developed, well-nourished Respiratory: No accessory muscle use, No respiratory distress; chest expansion is symmetric, chest is bilaterally symmetric, lungs clear to auscultation Cardiovascular: regular rate-rhythm; No JVD; S1 and S2 Gastrointestional: soft, round, audible bowel sounds Extremities: no lower extremity edema bilateral Neurologic/Psychiatric: other (expressive aphasia; RUE and RLE weakness) Skin: rash on exposed areas, ulcerations on exposed areas Results/Procedures: Labs A/P: Assessment: Acute ischemic L MCA stroke that occurred on 09/12/2020, arrived on September 1720 from for IPR. Will continue to monitor patients progress and response to eliquis PFO. HERB done on 09/19 showed PFO with bidirectional shunting as indicated by color Doppler flow and saline contrast, size of PFO shunt was not noted in report. 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 LV EF was estimated to be 60%, was referred to Dr. Carrion to discuss closure of PFO. No closure was done during that hospitalization Recent right lower extremity DVT while at . No signs of edema, erythema or tenderness in right lower extremity at this time. continue eliquis, will continue to monitor response and adjust therapy if necessary Obesity, managed by primary care teams Hyperlipidemia, continue Lipitor and will continue to monitor response Hemiparesis of right side, managed by inpatient rehab and primary care teams Aphasia, managed by inpatient rehab and primary care teams Oropharyngeal dysphagia, managed by inpatient rehab and primary care teams Hx of TBI, management of primary care team Hx of seizures/epilepsy ([place], last was 9yrs ago), controlled with current medications, management per primary care R ACL and meniscus tears - repaired on 08/18/2020, management by inpatient repair and primary care team Plan: Continue current regimen Monitor lab Management of stroke per stroke team KATIE TAPIA Sep 26, 2020 10:50
--- NOTE | 2020-09-26 11:48 | Physical Therapy Daily Note ---
PT Daily Note-Current Subjective Patient in bed pre tx, agrees to PT, will be co-treating with OT due to poor patient mobility, strength, endurance, right hemiparesis, safety and reduce fall risk, the need to coordinate UE and LE during activity. Appearance Patient in bed post tx with nurse call, phone, tray, all needs met. Mental Status Patient Orientation: Person, Unable to Assess, Non-Verbal/Aphasic right knee brace Transfers SCALE: Activities may be completed with or without assistive devices. 7-Erogxfzpej-szcvumv completes the activity by him/herself with no assistance from a helper. 5-Set-up or Clean-up Assistance-helper sets up or cleans up; patient completes activity. [place] assists only prior to or following the activity. 4-Supervision or Touching Assistance-helper provides verbal cues and/or touching/steadying and/or contact guard assistance as patient completes activity. Assistance may be provided throughout the activity or intermittently. 3-Partial/Moderate Assistance-helper does LESS THAN HALF the effort. [place] lifts, holds or supports trunk or limbs, but provides less than half the effort. 2-Substantial/Maximal Assistance-helper does MORE THAN HALF the effort. [place] lifts or holds trunk or limbs and provides more than half the effort. 8-Mteaqreqd-qcqvea does ALL the effort. Patient does none of the effort to complete the activity. Or, the assistance of 2 or more helpers is required for the patient to complete the activity. If activity was not attempted, code reason: 7-Patient Refused. 9-Not Applicable-not attempted and the patient did not perform the activity before the current illness, exacerbation or injury. 10-Not Attempted due to Environmental Limitations-(lack of equipment, weather restraints, etc.). 88-Not Attempted due to Medical Conditions or Safety Concerns. Roll Left & Right (QC): 3 Sit to Lying (QC): 3 Lying to Sitting/Side of Bed(Q: 3 Sit to Stand (QC): 3 Chair/Knl-yw-Gnegy Xfer(QC): 3 Patient performed 4 stand pivot transfers to each side with min assist to the right and CGA to the left, practiced limits of stability while sitting with cone reaching. Weight Bearing Right Lower Extremity: Right Non Weight Bearing Left Lower Extremity: Left Full Weight Bearing right leg brace to be on at all times, knee flexion limited to 90 degrees Wheelchair Training Does the Pt Use a Wheelchair?: Yes Wheel 50 ft with 2 turns (QC): 3 Wheel 150 ft (QC): 3 Type of Wheelchair: Manual Practiced WC mobility, min assist sometimes around obstacles or through doorways, was able to go down and up a ramp with min assist and cues for directions. Treatments PT performed bed mobility and transfers, WC mobility, sitting balance, OT worked on bathing, UE positioning and safety and during WC mobility, balance training. Assessment Current Status: Fair Progress Patient is making good progress with transfers but is limited on how much he can do in therapy due to being NWB on the right leg. PT Short Term Goals Short Term Goals Time Frame: Sep 29, 2020 Roll Left & Right: 4 Sit to lyin Lying to sitting on side of be: 4 Sit to stand: 4 Chair/lng-nf-wpjea transfer: 4 Wheel 50ft w/2 turns: 4 Wheel 150 feet: 4 PT Spot Remover Goals Spot Remover Goals PT Chcf Goals Time Frame: Oct 13, 2020 Roll Left & Right (QC): 4 (SBA) Sit to Lying (QC): 4 (SBA) Lying-Sitting on Side/Bed(QC): 4 (SBA) Sit to Stand (QC): 4 (SBA) Chair/Rnb-ad-Jbjqv Xfer(QC): 4 (SBA) Toilet Transfer (QC): 4 (SBA) Car Transfer (QC): 4 (SBA) Does the Patient Walk: No and Walking Goal NOT indicated Walk 10 feet (QC): 88 Walk 50ft with 2 Turns (QC): 88 Walk 150 ft (QC): 88 Walking 10ft on Uneven Surface: 88 1 Step (curb) (QC): 88 4 Steps (QC): 88 12 Steps (QC): 88 Picking up an Object (QC): 88 Wheel 50 feet with 2 turns (QC: 6 Wheel 150 feet: 6 PT Plan Problem List Problem List: Activity Tolerance, Functional Strength, Safety, Balance, Gait, Transfer, Bed Mobility, ROM Treatment/Plan Treatment Plan: Continue Plan of Care Treatment Plan: Bed Mobility, Education, Functional Activity Jeramy, Functional Strength, Group Therapy, Gait, Safety, Therapeutic Exercise, Transfers Treatment Duration: Oct 13, 2020 Frequency: At least 5 of 7 days/Wk (IRF) Estimated Hrs Per Day: 1.5 hours per day Patient and/or Family Agrees t: Yes Safety Risks/Education Patient Education: Transfer Techniques, Correct Positioning, W/C Management, Reviewed Don/Doff Brace, Safety Issues Teaching Recipient: Patient Teaching Methods: Demonstration, Discussion Response to Teaching: Reinforcement Needed Time/GCodes Time In: 0900 Time Out: 1000 Total Billed Treatment Time: 60 Total Billed Treatment 1 visit NM 15' FA 45' RACHEL LOPEZ PT Sep 26, 2020 11:48
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
--- NOTE | 2020-09-26 13:50 | Physical Therapy Daily Note ---
PT Daily Note-Current Subjective Patient in bed pre tx, agrees to PT, has no complaints of pain. Appearance Patient in bed post tx with nurse call, phone, tray, all needs met. Mental Status Patient Orientation: Person, Unable to Assess, Non-Verbal/Aphasic right leg brace Transfers SCALE: Activities may be completed with or without assistive devices. 7-Ewebxjehif-jlarqvk completes the activity by him/herself with no assistance from a helper. 5-Set-up or Clean-up Assistance-helper sets up or cleans up; patient completes activity. [place] assists only prior to or following the activity. 4-Supervision or Touching Assistance-helper provides verbal cues and/or touching/steadying and/or contact guard assistance as patient completes activity. Assistance may be provided throughout the activity or intermittently. 3-Partial/Moderate Assistance-helper does LESS THAN HALF the effort. [place] lifts, holds or supports trunk or limbs, but provides less than half the effort. 2-Substantial/Maximal Assistance-helper does MORE THAN HALF the effort. [place] lifts or holds trunk or limbs and provides more than half the effort. 1-Fulelgkmq-xrxepx does ALL the effort. Patient does none of the effort to complete the activity. Or, the assistance of 2 or more helpers is required for the patient to complete the activity. If activity was not attempted, code reason: 7-Patient Refused. 9-Not Applicable-not attempted and the patient did not perform the activity before the current illness, exacerbation or injury. 10-Not Attempted due to Environmental Limitations-(lack of equipment, weather restraints, etc.). 88-Not Attempted due to Medical Conditions or Safety Concerns. Weight Bearing Right Lower Extremity: Right Non Weight Bearing Left Lower Extremity: Left Full Weight Bearing right leg brace to be on at all times, knee flexion limited to 90 degrees Exercises Supine Ex: Quad Set, Glut sets, Short Arc Quads, Straight leg raise, Hip abd/add Supine Reps: 20 (All PROM except for QS and GS. Patient encouraged to try while therapist goes through the ROM. No obvisous muscle contraction from QS or GS.) right ankle stretching Treatments RLE ROM/stretching Assessment Current Status: Poor Progress Patient seems to have developed abnormal muscle spasms in the right leg at the beginning of ROM. Right knee flexion precaution, do not flex past 90 degrees. PT Short Term Goals Short Term Goals Time Frame: Sep 29, 2020 Roll Left & Right: 4 Sit to lyin Lying to sitting on side of be: 4 Sit to stand: 4 Chair/deu-nv-gbmia transfer: 4 Wheel 50ft w/2 turns: 4 Wheel 150 feet: 4 PT Warehouse Logistics Manager Goals Warehouse Logistics Manager Goals PT Retirement Goals Time Frame: Oct 13, 2020 Roll Left & Right (QC): 4 (SBA) Sit to Lying (QC): 4 (SBA) Lying-Sitting on Side/Bed(QC): 4 (SBA) Sit to Stand (QC): 4 (SBA) Chair/Kcy-fa-Dejaa Xfer(QC): 4 (SBA) Toilet Transfer (QC): 4 (SBA) Car Transfer (QC): 4 (SBA) Does the Patient Walk: No and Walking Goal NOT indicated Walk 10 feet (QC): 88 Walk 50ft with 2 Turns (QC): 88 Walk 150 ft (QC): 88 Walking 10ft on Uneven Surface: 88 1 Step (curb) (QC): 88 4 Steps (QC): 88 12 Steps (QC): 88 Picking up an Object (QC): 88 Wheel 50 feet with 2 turns (QC: 6 Wheel 150 feet: 6 PT Plan Problem List Problem List: Activity Tolerance, Functional Strength, Safety, Balance, Gait, Transfer, Bed Mobility, ROM Treatment/Plan Treatment Plan: Continue Plan of Care Treatment Plan: Bed Mobility, Education, Functional Activity Jeramy, Functional Strength, Group Therapy, Gait, Safety, Therapeutic Exercise, Transfers Treatment Duration: Oct 13, 2020 Frequency: At least 5 of 7 days/Wk (IRF) Estimated Hrs Per Day: 1.5 hours per day Patient and/or Family Agrees t: Yes Safety Risks/Education Patient Education: Correct Positioning, Safety Issues Teaching Recipient: Patient Teaching Methods: Demonstration, Discussion Response to Teaching: Reinforcement Needed Time/GCodes Time In: 1330 Time Out: 1345 Total Billed Treatment Time: 15 Total Billed Treatment 1 visit EX RACHEL FERNANDEZ PT Sep 26, 2020 13:50
--- NOTE | 2020-09-26 14:13 | Occupational Ther Daily Note ---
OT Current Status-Daily Note Subjective No pain reported. Appearance Pt. up in chair. Agrees to work with OT. Mental Status/Objective Patient Orientation: Person ADL-Treatment Therapy Code Descriptions/Definitions Functional [place] Measure: 0=Not Assessed/NA 4=Minimal Assistance 1=Total Assistance 5=Supervision or Setup 2=Maximal Assistance 6=Modified [place] 3=Moderate Assistance 7=Complete IndependenceSCALE: Activities may be completed with or without assistive devices. 0-Yeamdbwety-zfcjnft completes the activity by him/herself with no assistance from a helper. 5-Set-up or Clean-up Assistance-helper sets up or cleans up; patient completes activity. [place] assists only prior to or following the activity. 4-Supervision or Touching Assistance-helper provides verbal cues and/or touching/steadying and/or contact guard assistance as patient completes activity. Assistance may be provided throughout the activity or intermittently. 3-Partial/Moderate Assistance-helper does LESS THAN HALF the effort. [place] lifts, holds or supports trunk or limbs, but provides less than half the effort. 2-Substantial/Maximal Assistance-helper does MORE THAN HALF the effort. [place] lifts or holds trunk or limbs and provides more than half the effort. 9-Erglgbfsm-uolaof does ALL the effort. Patient does none of the effort to complete the activity. Or, the assistance of 2 or more helpers is required for the patient to complete the activity. If activity was not attempted, code reason: 7-Patient Refused. 9-Not Applicable-not attempted and the patient did not perform the activity before the current illness, exacerbation or injury. 10-Not Attempted due to Environmental Limitations-(lack of equipment, weather restraints, etc.). 88-Not Attempted due to Medical Conditions or Safety Concerns. Shower/Bathe Self (QC): 3 (Min assist in stance to wash rear abi area. Pt. able to wash all other parts seated.) Upper Body Dressing (QC): 3 (Mod assist to don shirt.) Lower Body Dressing (QC): 2 (Pt. requires assistance to thread right LE into shorts, but is able to thread left. Pt. requires assistance in stance to don shorts over hips.) On/Off Footwear: 3 (Pt. able to don left sock, but requires assistance to don right.) Other Treatment Pt. began treatment with OT only. PT came in at later time to assist with transfers and mobility during ADL skills training. After ADLs, pt. was encouraged to self propel wheelchair to therapy gym. Requires min assist. Transferred to mat with mod assist. PT focused on LE exercises and stretch while OT facilitated right UE ROM. No active movement noted. Pt. practiced multiple transfers to right side, and then left side, with min/mod assist each transfer. Pt. continues to be encouraged to not put weight through right LE. Worked on weight shifts seated, and then crossing midline, using left UE to reach across to right side, and then back to left. Pt. tolerated this well with all needs met. Practiced continued wheelchair mobility on large ramp for increased independence in community. Education OT Patient Education: Correct positioning, Exercise program, Modified ADL techniques, Progress toward Goal/Update tx plan, Purpose of tx/functional activities, Reviewed precautions, Rehab process, Transfer techniques Teaching Recipient: Patient Teaching Methods: Demonstration, Discussion Response to Teaching: Verbalize Understanding, Return Demonstration, Reinforcement Needed OT Short Term Goals Short Term Goals Time Frame: Oct 06, 2020 Eatin Oral hygiene: 3 Toileting hygiene: 3 Shower/bathe self: 3 Upper body dressin Lower body dressin Putting on/taking off footwear: 3 OT Assisted Goals Assisted Goals Time Frame: Oct 20, 2020 Eating (QC): 6 Oral Hygiene (QC): 6 Toileting Hygiene (QC): 4 Shower/Bathe Self (QC): 4 Upper Body Dressing (QC): 5 Lower Body Dressing (QC): 4 On/Off Footwear (QC): 4 Additional Goals: 1-Demonstrate ADL Tasks, 2-Verbalize Understanding, 3- ImproveStrength/Jeramy 1=Demonstrate adherence to instructed precautions during ADL tasks. 2=Patient will verbalize/demonstrate understanding of assistive devices/modifications for ADL. 3=Patient will improve strength/tolerance for activity to enable patient to perform ADL's. OT Education/Plan Problem List/Assessment Assessment: Decreased Activ Tolerance, Decreased UE Strength, Dependent Transfers, Impaired Bed Mobility, Impaired Cognition, Impaired Coordination, Impaired Funct Balance, Impaired I ADL's, Impaired Self-Care Skills, Restricted Funct UE ROM Discharge Recommendations Plan/Recommendations: Continue POC Therapy Discharge Recommendati: Post Acute OT Treatment Plan/Plan of Care Treatment,Training & Education: Yes Patient would benefit from OT for education, treatment and training to promote independence in ADL's, mobility, safety and/or upper extremity function for ADL's. Plan of Care: ADL Retraining, Functional Mobility, UE Funct Exercise/Act, UE Neuromus Re-Ed/Coord Treatment Duration: Oct 20, 2020 Frequency: At least 5 of 7 days/Wk (IRF) Estimated Hrs Per Day: 1.5 hours per day Agreement: Yes Rehab Potential: Good Time/GCodes Start Time: 08:45 Stop Time: 10:00 Total Time Billed (hr/min): 75 Billed Treatment Time 1, ADL x 30minutes, FA x 45minutes [id number] OT only [id number] Co-treatment with PT. Please see above note for designated roles. AMISH ROBERTO OT Sep 26, 2020 14:13
[2020-09-26 18:24] VITALS: BP 113/79
--- NOTE | 2020-09-26 18:25 | Progress Note - Cardiology ---
Cardiology SOAP Progress Note Subjective: Does not indicate any symptoms Objective: I&O/Vital Signs 09/26/20 09:00 O2 Delivery Room Air 09/26/20 00:00 Intake Total 1040 ml Balance 1040 ml Constitutional: well-developed, well-nourished, other (responds with gesture, not verbally) Respiratory: No accessory muscle use, No respiratory distress; chest expansion is symmetric, chest is bilaterally symmetric, lungs clear to auscultation Cardiovascular: regular rate-rhythm; No JVD; S1 and S2 Gastrointestional: soft, round, audible bowel sounds Extremities: no lower extremity edema bilateral Neurologic/Psychiatric: other (expressive aphasia; RUE and RLE weakness) Skin: rash on exposed areas, ulcerations on exposed areas Results/Procedures: Labs Laboratory Tests 09/26/20 05:28: White Blood Count 9.1, Red Blood Count 4.91, Hemoglobin 15.1, Hematocrit 44, Mean Corpuscular Volume 90, Mean Corpuscular Hemoglobin 31, Mean Corpuscular Hemoglobin Concent 34, Red Cell Distribution Width 12.7, Platelet Count 229, Mean Platelet Volume 10.6, Immature Granulocyte % (Auto) 0, Neutrophils (%) (Auto) 70, Lymphocytes (%) (Auto) 22, Monocytes (%) (Auto) 7, Eosinophils (%) (Auto) 1, Basophils (%) (Auto) 0, Neutrophils # (Auto) 6.4, Lymphocytes # (Auto) 2.0, Monocytes # (Auto) 0.6, Eosinophils # (Auto) 0.1, Basophils # (Auto) 0.0, Immature Granulocyte # (Auto) 0.0, Sodium Level 137, Potassium Level 3.9, Chloride Level 104, Carbon Dioxide Level 23, Anion Gap 10, Blood Urea Nitrogen 16, Creatinine 0.84, Estimat Glomerular Filtration Rate > 60, BUN/Creatinine Ratio 19, Glucose Level 97, Calcium Level 9.2, Corrected Calcium 9.1, Total Bilirubin 0.6, Aspartate Amino Transf (AST/SGOT) 46H, Alanine Aminotransferase (ALT/SGPT) 101H, Alkaline Phosphatase 75, Total Protein 7.0, Albumin 4.1 A/P: Assessment: Acute ischemic L MCA stroke, 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 Transferred on September 22, 2020 from for [facility]. Has been on Eliquis since stroke and finding of PFO with bidirectional shunting (see below) PFO. HERB done on 09/19 showed PFO with bidirectional shunting as indicated by color Doppler flow and saline contrast, size of PFO shunt was not noted in report. 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 LV EF was estimated to be 60%, was referred to Dr. Carrion to discuss closure of PFO. No closure was done during that hospitalization Recent right lower extremity DVT while at [facility], continue Eliquis Hyperlipidemia, treated with statin Hx of seizures/epilepsy ([place], last was 9yrs ago), controlled with current medications, management per primary care R ACL and meniscus tears - repaired on 08/18/2020, management by inpatient repair and primary care team Plan: Continue current regimen Monitor lab Management of stroke per Medical/Rehab DAWSON Wild MD FACP FAC CCDS Sep 26, 2020 18:25
[2020-09-26] MEDS: DOXYCYCLINE 100 MG (VIBRAMYCIN) TABLET PO SCH (20:49)
[2020-09-26] MEDS: ZONISAMIDE 100 MG CAP (ZONEGRAN) NON-FORMULARY PO SCH (20:50)
[2020-09-27 06:05] VITALS: BP 104/69
[2020-09-27] MEDS ORDERED: LACOSAMIDE 100 MG PO ONE ×2 (08:13→08:22)
[2020-09-27] MEDS: APIXABAN 5 MG (ELIQUIS) TABLET PO SCH ×2 (08:26→21:12)
[2020-09-27] MEDS: FLUoxetine HCL 20 MG (PROzac) CAP PO SCH (08:26)
[2020-09-27] MEDS: VIMPAT 200 MG TABLET PO SCH ×2 (08:27→21:14)
[2020-09-27] MEDS: LACOSAMIDE 100 MG PO SCH ×2 (08:27→21:14)
--- NOTE | 2020-09-27 09:53 | Physical Therapy Daily Note ---
PT Daily Note-Current Subjective Patient on commode pre tx, agrees to PT, has no complaints of pain. Patient ends up not having a BM. Appearance Patient in bed post tx with nurse call, phone, tray, all needs met. Mental Status Patient Orientation: Person, Unable to Assess, Non-Verbal/Aphasic right leg brace Transfers SCALE: Activities may be completed with or without assistive devices. 2-Qndxdboycc-lnvnqcn completes the activity by him/herself with no assistance from a helper. 5-Set-up or Clean-up Assistance-helper sets up or cleans up; patient completes activity. [place] assists only prior to or following the activity. 4-Supervision or Touching Assistance-helper provides verbal cues and/or touching/steadying and/or contact guard assistance as patient completes activity. Assistance may be provided throughout the activity or intermittently. 3-Partial/Moderate Assistance-helper does LESS THAN HALF the effort. [place] [address] lifts, holds or supports trunk or limbs, but provides less than half the effort. 2-Substantial/Maximal Assistance-helper does MORE THAN HALF the effort. [place] [address] lifts or holds trunk or limbs and provides more than half the effort. 3-Iqzjjvqxy-xeitbt does ALL the effort. Patient does none of the effort to complete the activity. Or, the assistance of 2 or more helpers is required for the patient to complete the activity. If activity was not attempted, code reason: 7-Patient Refused. 9-Not Applicable-not attempted and the patient did not perform the activity before the current illness, exacerbation or injury. 10-Not Attempted due to Environmental Limitations-(lack of equipment, weather restraints, etc.). 88-Not Attempted due to Medical Conditions or Safety Concerns. Roll Left & Right (QC): 3 Sit to Lying (QC): 3 Lying to Sitting/Side of Bed(Q: 3 Sit to Stand (QC): 3 Chair/Fsj-xs-Tfhtn Xfer(QC): 3 Stand pivot to WC from commode, roll to gym, transfer to therapy table to adjust brace, sit back up and perform LE exercises, transfer back to WC, transfer to stepper, transfer back to WC, roll back to room. Weight Bearing Right Lower Extremity: Right Non Weight Bearing Left Lower Extremity: Left Full Weight Bearing right leg brace to be on at all times, knee flexion limited to 90 degrees Wheelchair Training Does the Pt Use a Wheelchair?: Yes Wheel 50 ft with 2 turns (QC): 4 Wheel 150 ft (QC): 4 Type of Wheelchair: Manual 150'x2 Exercises sit to stand 3 sets of 5, LAQ LLE for 5 min with 2# ankle weight NuStep Minutes: 15 NuStep Workload: 4 (RLE not used) Treatments toileting, WC mobility, bed mobility and transfers, LE exercise Assessment Current Status: Poor Progress no change in mobility PT Short Term Goals Short Term Goals Time Frame: Sep 29, 2020 Roll Left & Right: 4 Sit to lyin Lying to sitting on side of be: 4 Sit to stand: 4 Chair/mot-nd-tirvx transfer: 4 Wheel 50ft w/2 turns: 4 Wheel 150 feet: 4 PT Station Attendant Goals Station Attendant Goals PT Station Attendant Goals Time Frame: Oct 13, 2020 Roll Left & Right (QC): 4 (SBA) Sit to Lying (QC): 4 (SBA) Lying-Sitting on Side/Bed(QC): 4 (SBA) Sit to Stand (QC): 4 (SBA) Chair/Uyw-rd-Opkga Xfer(QC): 4 (SBA) Toilet Transfer (QC): 4 (SBA) Car Transfer (QC): 4 (SBA) Does the Patient Walk: No and Walking Goal NOT indicated Walk 10 feet (QC): 88 Walk 50ft with 2 Turns (QC): 88 Walk 150 ft (QC): 88 Walking 10ft on Uneven Surface: 88 1 Step (curb) (QC): 88 4 Steps (QC): 88 12 Steps (QC): 88 Picking up an Object (QC): 88 Wheel 50 feet with 2 turns (QC: 6 Wheel 150 feet: 6 PT Plan Problem List Problem List: Activity Tolerance, Functional Strength, Safety, Balance, Gait, Transfer, Bed Mobility, ROM Treatment/Plan Treatment Plan: Continue Plan of Care Treatment Plan: Bed Mobility, Education, Functional Activity Jeramy, Functional Strength, Group Therapy, Gait, Safety, Therapeutic Exercise, Transfers Treatment Duration: Oct 13, 2020 Frequency: At least 5 of 7 days/Wk (IRF) Estimated Hrs Per Day: 1.5 hours per day Patient and/or Family Agrees t: Yes Safety Risks/Education Patient Education: Transfer Techniques, Correct Positioning, W/C Management, Safety Issues Teaching Recipient: Patient Teaching Methods: Demonstration, Discussion Response to Teaching: Reinforcement Needed Time/GCodes Time In: 0900 Time Out: 1000 Total Billed Treatment Time: 60 Total Billed Treatment 1 visit EX 25' FA 35' RACHEL LOPEZ PT Sep 27, 2020 09:53
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
--- NOTE | 2020-09-27 14:19 | Physical Therapy Daily Note ---
PT Daily Note-Current Subjective Patient in bed pre tx, agrees to PT, has no complaints of pain. Leg brace needs adjusted, it seems to slide down all the time no matter how tight it is. Appearance Patient in bed post tx with nurse call, phone, tray, all needs met. Mental Status Patient Orientation: Person, Unable to Assess, Non-Verbal/Aphasic right leg brace Transfers SCALE: Activities may be completed with or without assistive devices. 0-Ybgmvycdxu-sjsgrve completes the activity by him/herself with no assistance from a helper. 5-Set-up or Clean-up Assistance-helper sets up or cleans up; patient completes activity. [place] assists only prior to or following the activity. 4-Supervision or Touching Assistance-helper provides verbal cues and/or touching/steadying and/or contact guard assistance as patient completes activity. Assistance may be provided throughout the activity or intermittently. 3-Partial/Moderate Assistance-helper does LESS THAN HALF the effort. [place] lifts, holds or supports trunk or limbs, but provides less than half the effort. 2-Substantial/Maximal Assistance-helper does MORE THAN HALF the effort. [place] lifts or holds trunk or limbs and provides more than half the effort. 0-Ohynzuufs-esdznw does ALL the effort. Patient does none of the effort to complete the activity. Or, the assistance of 2 or more helpers is required for the patient to complete the activity. If activity was not attempted, code reason: 7-Patient Refused. 9-Not Applicable-not attempted and the patient did not perform the activity before the current illness, exacerbation or injury. 10-Not Attempted due to Environmental Limitations-(lack of equipment, weather restraints, etc.). 88-Not Attempted due to Medical Conditions or Safety Concerns. Weight Bearing Right Lower Extremity: Right Non Weight Bearing Left Lower Extremity: Left Full Weight Bearing right leg brace to be on at all times, knee flexion limited to 90 degrees Exercises Supine Ex: Quad Set, Glut sets, Heel Slides, Straight leg raise, Hip abd/add Supine Reps: 20 (PROM with heel slides and hip abd/add and SLR, attempts QS but doesn't seem to be able to contract his quad, can do glute sets) RLE PROM in all planes, special attention on ankle dorsiflexion. Treatments LE exercise Assessment Current Status: Poor Progress no change in mobility PT Short Term Goals Short Term Goals Time Frame: Sep 29, 2020 Roll Left & Right: 4 Sit to lyin Lying to sitting on side of be: 4 Sit to stand: 4 Chair/prg-xd-pwzdp transfer: 4 Wheel 50ft w/2 turns: 4 Wheel 150 feet: 4 PT Halfway Goals Clip Baker Goals PT Clip Baker Goals Time Frame: Oct 13, 2020 Roll Left & Right (QC): 4 (SBA) Sit to Lying (QC): 4 (SBA) Lying-Sitting on Side/Bed(QC): 4 (SBA) Sit to Stand (QC): 4 (SBA) Chair/Jme-om-Ncqcg Xfer(QC): 4 (SBA) Toilet Transfer (QC): 4 (SBA) Car Transfer (QC): 4 (SBA) Does the Patient Walk: No and Walking Goal NOT indicated Walk 10 feet (QC): 88 Walk 50ft with 2 Turns (QC): 88 Walk 150 ft (QC): 88 Walking 10ft on Uneven Surface: 88 1 Step (curb) (QC): 88 4 Steps (QC): 88 12 Steps (QC): 88 Picking up an Object (QC): 88 Wheel 50 feet with 2 turns (QC: 6 Wheel 150 feet: 6 PT Plan Problem List Problem List: Activity Tolerance, Functional Strength, Safety, Balance, Gait, Transfer, Bed Mobility, ROM Treatment/Plan Treatment Plan: Continue Plan of Care Treatment Plan: Bed Mobility, Education, Functional Activity Jeramy, Functional Strength, Group Therapy, Gait, Safety, Therapeutic Exercise, Transfers Treatment Duration: Oct 13, 2020 Frequency: At least 5 of 7 days/Wk (IRF) Estimated Hrs Per Day: 1.5 hours per day Patient and/or Family Agrees t: Yes Safety Risks/Education Patient Education: Correct Positioning, Safety Issues Teaching Recipient: Patient Teaching Methods: Demonstration, Discussion Response to Teaching: Reinforcement Needed Time/GCodes Time In: 1400 Time Out: 1415 Total Billed Treatment Time: 15 Total Billed Treatment 1 visit EX RACHEL FERNANDEZ PT Sep 27, 2020 14:19
--- NOTE | 2020-09-27 14:44 | Occupational Ther Daily Note ---
OT Current Status-Daily Note Subjective No pain reported. Appearance Pt. in bed asleep. Wakes up and agrees to work with OT. Mental Status/Objective Patient Orientation: Person ADL-Treatment Therapy Code Descriptions/Definitions Functional [place] Measure: 0=Not Assessed/NA 4=Minimal Assistance 1=Total Assistance 5=Supervision or Setup 2=Maximal Assistance 6=Modified [place] 3=Moderate Assistance 7=Complete IndependenceSCALE: Activities may be completed with or without assistive devices. 8-Bnhyjtmqgm-ddmbfwv completes the activity by him/herself with no assistance from a helper. 5-Set-up or Clean-up Assistance-helper sets up or cleans up; patient completes activity. [place] assists only prior to or following the activity. 4-Supervision or Touching Assistance-helper provides verbal cues and/or to uching/steadying and/or contact guard assistance as patient completes activity. Assistance may be provided throughout the activity or intermittently. 3-Partial/Moderate Assistance-helper does LESS THAN HALF the effort. [place] lifts, holds or supports trunk or limbs, but provides less than half the effort. 2-Substantial/Maximal Assistance-helper does MORE THAN HALF the effort. [place] lifts or holds trunk or limbs and provides more than half the effort. 2-Rgckvihlu-lgvgoh does ALL the effort. Patient does none of the effort to complete the activity. Or, the assistance of 2 or more helpers is required for the patient to complete the activity. If activity was not attempted, code reason: 7-Patient Refused. 9-Not Applicable-not attempted and the patient did not perform the activity before the current illness, exacerbation or injury. 10-Not Attempted due to Environmental Limitations-(lack of equipment, weather restraints, etc.). 88-Not Attempted due to Medical Conditions or Safety Concerns. Oral Hygiene (QC): 7 (Pt. declines brushing teeth. States, "I will do it later.") Pt. is in clothing that he put on yesterday after shower. Declines showering today. Transfers supine-sit with CGA. Transfers sit-stand and to wheelchair with mod assistance. Pt. able to self propel wheelchair with min assist. OT donned sling on right UE for better positioning during mobility. OT and pt. went to therapy gym and pt. participated in series of visual motor activities. Pt. able to participate in activity in which he had to scan back and forth and find specific items on page, crossing midline. Pt. also had to place specific colors together, and then look at picture, and draw it in blank space using left hand. Pt. able to do this with no difficulty. Pt. then given medication task, in which he was supposed to read the side of the pill bottle, and organize the medication in the weekly medication box according to the bottle. Pt. had difficulty with this in beginning. He would like at the bottle, but would not respond. Max cues given for pt. to be able to state that he can read the bottle, and understands it, but does not want to state it out loud due to speech issues. Pt. is encouraged and then participates in activity with mod cues. Pt. worked on self propulsion back to room. Pt. encouraged and educated again with completing self PROM techniques. Transferred to reclining chair with mod assist. All needs met. Education OT Patient Education: Correct positioning, Home exercise program, Modified ADL techniques, Progress toward Goal/Update tx plan, Purpose of tx/functional activities, Reviewed precautions, Rehab process, Transfer techniques Teaching Recipient: Patient Teaching Methods: Demonstration, Discussion Response to Teaching: Verbalize Understanding, Return Demonstration OT Short Term Goals Short Term Goals Time Frame: Oct 06, 2020 Eatin Oral hygiene: 3 Toileting hygiene: 3 Shower/bathe self: 3 Upper body dressin Lower body dressin Putting on/taking off footwear: 3 OT Rfid Technician Goals Senior Care Goals Time Frame: Oct 20, 2020 Eating (QC): 6 Oral Hygiene (QC): 6 Toileting Hygiene (QC): 4 Shower/Bathe Self (QC): 4 Upper Body Dressing (QC): 5 Lower Body Dressing (QC): 4 On/Off Footwear (QC): 4 Additional Goals: 1-Demonstrate ADL Tasks, 2-Verbalize Understanding, 3- ImproveStrength/Jeramy 1=Demonstrate adherence to instructed precautions during ADL tasks. 2=Patient will verbalize/demonstrate understanding of assistive devices/modifications for ADL. 3=Patient will improve strength/tolerance for activity to enable patient to perform ADL's. OT Education/Plan Problem List/Assessment Assessment: Decreased Activ Tolerance, Decreased UE Strength, Dependent Transfers, Impaired Cognition, Impaired Coordination, Impaired Funct Balance, Impaired I ADL's, Impaired Self-Care Skills, Restricted Funct UE ROM, Visual- Perceptual Deficit Discharge Recommendations Plan/Recommendations: Continue POC Therapy Discharge Recommendati: Post Acute OT Treatment Plan/Plan of Care Treatment,Training & Education: Yes Patient would benefit from OT for education, treatment and training to promote independence in ADL's, mobility, safety and/or upper extremity function for ADL's. Plan of Care: ADL Retraining, Functional Mobility, UE Funct Exercise/Act, UE Neuromus Re-Ed/Coord Treatment Duration: Oct 20, 2020 Frequency: At least 5 of 7 days/Wk (IRF) Estimated Hrs Per Day: 1.5 hours per day Agreement: Yes Rehab Potential: Good Time/GCodes Start Time: 11:00 Stop Time: 12:15 Total Time Billed (hr/min): 75 Billed Treatment Time 1, FA x 5 AMISH ROBERTO OT Sep 27, 2020 14:44
[2020-09-27 16:13] VITALS: BP 112/68
[2020-09-27] MEDS: DOXYCYCLINE 100 MG (VIBRAMYCIN) TABLET PO SCH (21:12)
[2020-09-27] MEDS: ZONISAMIDE 100 MG CAP (ZONEGRAN) NON-FORMULARY PO SCH (21:13)
[2020-09-28 05:55] VITALS: BP 123/75
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
[2020-09-28] MEDS: APIXABAN 5 MG (ELIQUIS) TABLET PO SCH ×2 (08:27→20:45)
[2020-09-28] MEDS: FLUoxetine HCL 20 MG (PROzac) CAP PO SCH (08:27)
[2020-09-28] MEDS: LACOSAMIDE 100 MG PO SCH ×2 (08:28→20:47)
[2020-09-28] MEDS: VIMPAT 200 MG TABLET PO SCH ×2 (08:29→20:46)
--- NOTE | 2020-09-28 10:03 | Physical Therapy Daily Note ---
PT Daily Note-Current Subjective Pt. agrees to Rx, attempts to explain what his home situation will be like, states his sister will be taking care of him. States he will have to go up 2 steps. Pain Location: No Pain Reported Mental Status Patient Orientation: Non-Verbal/Aphasic Attachments: Knee Immobilizer (R ), Other-See Comments (sling RUE, mask while out of room) Transfers SCALE: Activities may be completed with or without assistive devices. 0-Rcdgwzxsil-rfhqwhy completes the activity by him/herself with no assistance from a helper. 5-Set-up or Clean-up Assistance-helper sets up or cleans up; patient completes activity. [place] assists only prior to or following the activity. 4-Supervision or Touching Assistance-helper provides verbal cues and/or touching/steadying and/or contact guard assistance as patient completes activity. Assistance may be provided throughout the activity or intermittently. 3-Partial/Moderate Assistance-helper does LESS THAN HALF the effort. [place] lifts, holds or supports trunk or limbs, but provides less than half the effort. 2-Substantial/Maximal Assistance-helper does MORE THAN HALF the effort. [place] lifts or holds trunk or limbs and provides more than half the effort. 6-Ctwefwyko-jqvjrq does ALL the effort. Patient does none of the effort to complete the activity. Or, the assistance of 2 or more helpers is required for the patient to complete the activity. If activity was not attempted, code reason: 7-Patient Refused. 9-Not Applicable-not attempted and the patient did not perform the activity before the current illness, exacerbation or injury. 10-Not Attempted due to Environmental Limitations-(lack of equipment, weather restraints, etc.). 88-Not Attempted due to Medical Conditions or Safety Concerns. Roll Left & Right (QC): 3 Sit to Lying (QC): 3 (for RLE) Lying to Sitting/Side of Bed(Q: 5 Sit to Stand (QC): 4 Chair/Iie-xb-Itbnr Xfer(QC): 3 Pt. needs steadying assist and occas more as he flings himself back in to chair with such momentum. Weight Bearing Right Lower Extremity: Right Non Weight Bearing Left Lower Extremity: Left Full Weight Bearing right leg brace to be on at all times, knee flexion limited to 90 degrees Wheelchair Training Does the Pt Use a Wheelchair?: Yes Wheel 50 ft with 2 turns (QC): 2 Type of Wheelchair: Manual Pt. needs reminders to brake wheels and much instruction to align chair in pos ition to make SPTs efficient and safe Exercises Supine Ex: Ankle pumps, Quad Set, Rolling, Glut sets, Heel Slides (left), Short Arc Quads (left), Scooting, Straight leg raise (left), Hip abd/add Supine Reps: 15 (assisted on right) Treatments w/c mob, SPTs, and sit to sup etc, R knee immoblizer secured and reapplied. Assessment Current Status: Fair Progress PT Short Term Goals Short Term Goals Time Frame: Sep 29, 2020 Roll Left & Right: 4 Sit to lyin Lying to sitting on side of be: 4 Sit to stand: 4 Chair/ivd-ee-dfdow transfer: 4 Wheel 50ft w/2 turns: 4 Wheel 150 feet: 4 PT Cyber Transport Systems Specialist Goals Halfway Goals PT Halfway Goals Time Frame: Oct 13, 2020 Roll Left & Right (QC): 4 (SBA) Sit to Lying (QC): 4 (SBA) Lying-Sitting on Side/Bed(QC): 4 (SBA) Sit to Stand (QC): 4 (SBA) Chair/Tli-at-Agirj Xfer(QC): 4 (SBA) Toilet Transfer (QC): 4 (SBA) Car Transfer (QC): 4 (SBA) Does the Patient Walk: No and Walking Goal NOT indicated Walk 10 feet (QC): 88 Walk 50ft with 2 Turns (QC): 88 Walk 150 ft (QC): 88 Walking 10ft on Uneven Surface: 88 1 Step (curb) (QC): 88 4 Steps (QC): 88 12 Steps (QC): 88 Picking up an Object (QC): 88 Wheel 50 feet with 2 turns (QC: 6 Wheel 150 feet: 6 PT Plan Treatment/Plan Treatment Plan: Continue Plan of Care Treatment Plan: Bed Mobility, Education, Functional Activity Jeramy, Functional Strength, Group Therapy, Gait, Safety, Therapeutic Exercise, Transfers Treatment Duration: Oct 13, 2020 Frequency: At least 5 of 7 days/Wk (IRF) Estimated Hrs Per Day: 1.5 hours per day Patient and/or Family Agrees t: Yes Safety Risks/Education Patient Education: Transfer Techniques, Correct Positioning, W/C Management, Safety Issues Teaching Recipient: Patient Teaching Methods: Demonstration, Discussion Response to Teaching: Reinforcement Needed Time/GCodes Time In: 900 Time Out: 1000 Total Billed Treatment Time: 60 Total Billed Treatment 1,FA 35m,WC15m,EX10m GEORGE VILLEGAS FINAL FINISHER Sep 28, 2020 10:03
--- NOTE | 2020-09-28 13:02 | Occupational Ther Daily Note ---
OT Current Status-Daily Note Subjective Pt. does not report pain. Appearance Pt. up in reclining chair. Agrees to work with OT. Mental Status/Objective Patient Orientation: Person, Place ADL-Treatment Therapy Code Descriptions/Definitions Functional [place] Measure: 0=Not Assessed/NA 4=Minimal Assistance 1=Total Assistance 5=Supervision or Setup 2=Maximal Assistance 6=Modified [place] 3=Moderate Assistance 7=Complete IndependenceSCALE: Activities may be completed with or without assistive devices. 5-Wvqokrpjvn-uybylar completes the activity by him/herself with no assistance from a helper. 5-Set-up or Clean-up Assistance-helper sets up or cleans up; patient completes activity. [place] assists only prior to or following the activity. 4-Supervision or Touching Assistance-helper provides verbal cues and/or touching/steadying and/or contact guard assistance as patient completes activity. Assistance may be provided throughout the activity or intermittently. 3-Partial/Moderate Assistance-helper does LESS THAN HALF the effort. [place] lifts, holds or supports trunk or limbs, but provides less than half the effort. 2-Substantial/Maximal Assistance-helper does MORE THAN HALF the effort. [place] lifts or holds trunk or limbs and provides more than half the effort. 2-Qdhaeijnm-bdwobf does ALL the effort. Patient does none of the effort to complete the activity. Or, the assistance of 2 or more helpers is required for the patient to complete the activity. If activity was not attempted, code reason: 7-Patient Refused. 9-Not Applicable-not attempted and the patient did not perform the activity before the current illness, exacerbation or injury. 10-Not Attempted due to Environmental Limitations-(lack of equipment, weather restraints, etc.). 88-Not Attempted due to Medical Conditions or Safety Concerns. Oral Hygiene (QC): 4 (SBA to brush teeth seated from wheelchair level at sink.) Shower/Bathe Self (QC): 3 (Mod assist in stance.) Upper Body Dressing (QC): 3 (Min assist.) Lower Body Dressing (QC): 3 (Mod assist. Pt. able to thread bilateral LE into shorts but requires mod assist to stand to don over hips. Pt. can assist with donning over hip.) Toileting Hygiene (QC): 3 (Pt. requests to urinate. OT assists him to stand at toilet by holding grab bar. Pt. is able to urinate standing, but requires assistance to cleanse area after toileting.) Other Treatment After ADLs in room, pt. is able to self propel wheelchair with min assist to therapy gym. OT engages pt. in task of adjusting his own leg brace. He is able to do this with wheelchair leg extended, and with cues. OT also provided gentle PROM to right UE in all planes. No subluxation of shoulder noted, and no active movement. All needs met back in room and pt. transferred to reclining chair with mod assist. Education OT Patient Education: Correct positioning, Modified ADL techniques, Progress toward Goal/Update tx plan, Purpose of tx/functional activities, Reviewed precautions, Rehab process, Transfer techniques Teaching Recipient: Patient Teaching Methods: Demonstration, Discussion Response to Teaching: Verbalize Understanding, Return Demonstration OT Short Term Goals Short Term Goals Time Frame: Oct 06, 2020 Eatin Oral hygiene: 3 Toileting hygiene: 3 Shower/bathe self: 3 Upper body dressin Lower body dressin Putting on/taking off footwear: 3 OT Long-Term Goals Long-Term Goals Time Frame: Oct 20, 2020 Eating (QC): 6 Oral Hygiene (QC): 6 Toileting Hygiene (QC): 4 Shower/Bathe Self (QC): 4 Upper Body Dressing (QC): 5 Lower Body Dressing (QC): 4 On/Off Footwear (QC): 4 Additional Goals: 1-Demonstrate ADL Tasks, 2-Verbalize Understanding, 3- ImproveStrength/Jeramy 1=Demonstrate adherence to instructed precautions during ADL tasks. 2=Patient will verbalize/demonstrate understanding of assistive devices/modifications for ADL. 3=Patient will improve strength/tolerance for activity to enable patient to perform ADL's. OT Education/Plan Problem List/Assessment Assessment: Decreased Activ Tolerance, Dependent Transfers, Impaired Cognition, Impaired Funct Balance, Impaired I ADL's, Impaired Self-Care Skills, Restricted Funct UE ROM, Visual-Perceptual Deficit Discharge Recommendations Plan/Recommendations: Continue POC Therapy Discharge Recommendati: Home & Family, Post Acute OT Treatment Plan/Plan of Care Treatment,Training & Education: Yes Patient would benefit from OT for education, treatment and training to promote independence in ADL's, mobility, safety and/or upper extremity function for ADL's. Plan of Care: ADL Retraining, Functional Mobility, UE Funct Exercise/Act, UE Neuromus Re-Ed/Coord Treatment Duration: Oct 20, 2020 Frequency: At least 5 of 7 days/Wk (IRF) Estimated Hrs Per Day: 1.5 hours per day Agreement: Yes Rehab Potential: Good Time/GCodes Start Time: 10:35 Stop Time: 11:20 Total Time Billed (hr/min): 45 Billed Treatment Time 1, ADL x 30minutes, Ex x 15minutes AMISH ROBERTO OT Sep 28, 2020 13:02
--- NOTE | 2020-09-28 13:05 | Physical Therapy Daily Note ---
PT Daily Note-Current Subjective Pt. asleep in recliner and difficult to awaken, agreeable to Rx when awakened. Pain Location: No Pain Reported Mental Status Patient Orientation: Non-Verbal/Aphasic Attachments: Other-See Comments (immoblizer knee Right) Transfers SCALE: Activities may be completed with or without assistive devices. 1-Lgcbvgzkqb-bzoakew completes the activity by him/herself with no assistance from a helper. 5-Set-up or Clean-up Assistance-helper sets up or cleans up; patient completes activity. [place] assists only prior to or following the activity. 4-Supervision or Touching Assistance-helper provides verbal cues and/or touching/steadying and/or contact guard assistance as patient completes act ivity. Assistance may be provided throughout the activity or intermittently. 3-Partial/Moderate Assistance-helper does LESS THAN HALF the effort. [place] lifts, holds or supports trunk or limbs, but provides less than half the effort. 2-Substantial/Maximal Assistance-helper does MORE THAN HALF the effort. [place] lifts or holds trunk or limbs and provides more than half the effort. 4-Ulmspgskf-qlaiwe does ALL the effort. Patient does none of the effort to complete the activity. Or, the assistance of 2 or more helpers is required for the patient to complete the activity. If activity was not attempted, code reason: 7-Patient Refused. 9-Not Applicable-not attempted and the patient did not perform the activity before the current illness, exacerbation or injury. 10-Not Attempted due to Environmental Limitations-(lack of equipment, weather restraints, etc.). 88-Not Attempted due to Medical Conditions or Safety Concerns. Sit to Stand (QC): 4 Weight Bearing Right Lower Extremity: Right Non Weight Bearing Left Lower Extremity: Left Full Weight Bearing right leg brace to be on at all times, knee flexion limited to 90 degrees Exercises Supine Ex: Ankle pumps, Quad Set, Glut sets, Heel Slides, Short Arc Quads, Scooting (up in chair), Straight leg raise, Hip abd/add Supine Reps: 15 (assisted on right) Assessment Current Status: Fair Progress PT Short Term Goals Short Term Goals Time Frame: Sep 29, 2020 Roll Left & Right: 4 Sit to lyin Lying to sitting on side of be: 4 Sit to stand: 4 Chair/vny-uf-deojz transfer: 4 Wheel 50ft w/2 turns: 4 Wheel 150 feet: 4 PT Mcfp Goals Mcfp Goals PT Mcfp Goals Time Frame: Oct 13, 2020 Roll Left & Right (QC): 4 (SBA) Sit to Lying (QC): 4 (SBA) Lying-Sitting on Side/Bed(QC): 4 (SBA) Sit to Stand (QC): 4 (SBA) Chair/Nhb-hp-Xlesn Xfer(QC): 4 (SBA) Toilet Transfer (QC): 4 (SBA) Car Transfer (QC): 4 (SBA) Does the Patient Walk: No and Walking Goal NOT indicated Walk 10 feet (QC): 88 Walk 50ft with 2 Turns (QC): 88 Walk 150 ft (QC): 88 Walking 10ft on Uneven Surface: 88 1 Step (curb) (QC): 88 4 Steps (QC): 88 12 Steps (QC): 88 Picking up an Object (QC): 88 Wheel 50 feet with 2 turns (QC: 6 Wheel 150 feet: 6 PT Plan Treatment/Plan Treatment Plan: Continue Plan of Care Treatment Plan: Bed Mobility, Education, Functional Activity Jeramy, Functional Strength, Group Therapy, Gait, Safety, Therapeutic Exercise, Transfers Treatment Duration: Oct 13, 2020 Frequency: At least 5 of 7 days/Wk (IRF) Estimated Hrs Per Day: 1.5 hours per day Patient and/or Family Agrees t: Yes Time/GCodes Time In: 1250 Time Out: 1305 Total Billed Treatment Time: 15 Total Billed Treatment 1,EX15m GEORGE [employer]AS [employer] Sep 28, 2020 13:05
--- NOTE | 2020-09-28 14:36 | Speech Therapy Daily Note ---
Speech Daily Progress Note Subjective Date Seen by Provider: Sep 28, 2020 Time Seen by Provider: 00:30 Patient was resting in his recliner following his noon meal. Objective Patient completed category task of naming an item which belonged to provided category with 40% given mod to max verbal cuing. Assessment Assessment Current Status: Fair Progress Treatment Plan Continue Plan of Care Speech Short Term Goals Short Term Goals Short Term Goals 1) Patient will tolerate least restrictive diet level without s/s of aspiration at 80% or greater with minimal cues. 2) Patient will utilize compensatory strategies as trained at 80% or greater with minima cues. 3) Patient will follow multi step commands with 90% or greater with minimal cues. 4) Patient will utilize communication board to assist with meeting wants/needs with moderate cue.s Speech Snf Goals Snf Goals Patient will maintain adequate nutrition/hydration via safe effective swallow function. Patient will participate in ongoing assessment for functional level of language abilities. Speech-Plan Patient/Family Goals Patient/Family Goals: Patient plans on returning to his home with family support upon discharge. Treatment Plan Speech Therapy Treatment Plan: Continue Plan of Care Treatment Duration: Oct 12, 2020 Frequency: 4 times per week (Patient will receive skilled ST 4 to 5x per week) Estimated Hrs Per Day: .5 hour per day Rehab Potential: Good Barriers to Learning: Patient's CVA with expressive aphasia Pt/Family Agrees to Plan: Yes Safety Risks/Education Teaching Recipient: Patient Teaching Methods: Demonstration, Discussion Response to Teaching: Verbalize Understanding, Return Demonstration Education Topics Provided: Continued safety within his room and utilization of communication pictures as needed, Continued safety of oral intake Time Speech Therapy Time In: 13:15 Speech Therapy Time Out: 13:45 Total Billed Time: 30 Billed Treatment Time 1, MISHEL, DENISE Pascual Sep 28, 2020 14:36
--- NOTE | 2020-09-28 15:05 | Occupational Ther Daily Note ---
OT Current Status-Daily Note Subjective No pain reported. Appearance Pt. up in reclining chair. Asleep but awakes easily. Agrees to work with OT. Mental Status/Objective Patient Orientation: Person ADL-Treatment Therapy Code Descriptions/Definitions Functional [place] Measure: 0=Not Assessed/NA 4=Minimal Assistance 1=Total Assistance 5=Supervision or Setup 2=Maximal Assistance 6=Modified [place] 3=Moderate Assistance 7=Complete IndependenceSCALE: Activities may be completed with or without assistive devices. 4-Lfekyliqpx-hspxlkh completes the activity by him/herself with no assistance from a helper. 5-Set-up or Clean-up Assistance-helper sets up or cleans up; patient completes activity. [place] assists only prior to or following the activity. 4-Supervision or Touching Assistance-helper provides verbal cues and/or touching/steadying and/or contact guard assistance as patient completes activity. Assistance may be provided throughout the activity or intermittently. 3-Partial/Moderate Assistance-helper does LESS THAN HALF the effort. [place] li fts, holds or supports trunk or limbs, but provides less than half the effort. 2-Substantial/Maximal Assistance-helper does MORE THAN HALF the effort. [place] lifts or holds trunk or limbs and provides more than half the effort. 4-Xlofncfwu-kfctng does ALL the effort. Patient does none of the effort to complete the activity. Or, the assistance of 2 or more helpers is required for the patient to complete the activity. If activity was not attempted, code reason: 7-Patient Refused. 9-Not Applicable-not attempted and the patient did not perform the activity before the current illness, exacerbation or injury. 10-Not Attempted due to Environmental Limitations-(lack of equipment, weather restraints, etc.). 88-Not Attempted due to Medical Conditions or Safety Concerns. Other Treatment Pt. and OT begin treatment with OT performing PROM to right UE. Provided range in all planes. No active movement noted and no pain noted. OT engaged pt. in cognitive naming activity. Attempted to name three items and asked pt. to name the category they belonged to. Pt. unable to do this, as he was unable to state the word. OT attempted several other strategies, and finally gave the pt. two choices. For example, OT named 3 similiar items, and then gave the pt. 2 choices of possible categories that it could be. OT asked him to state, "yes" after the one he thought it was. Pt. was able to do this and was 100% accurate with answers. After this, OT asked pt. if he was able to text. He states "not really." Unable to have text conversation with OT. Pt. was able to show OT specific pictures on his phone after talking about specific people and his dog. Pt. was able to pull up a picture of a dog, his mom, and his sisters. All needs were met and pt. comfortable in recliner. Education OT Patient Education: Correct positioning, Progress toward Goal/Update tx plan, Purpose of tx/functional activities, Reviewed precautions, Rehab process Teaching Recipient: Patient Teaching Methods: Demonstration, Discussion Response to Teaching: Reinforcement Needed OT Short Term Goals Short Term Goals Time Frame: Oct 06, 2020 Eatin Oral hygiene: 3 Toileting hygiene: 3 Shower/bathe self: 3 Upper body dressin Lower body dressin Putting on/taking off footwear: 3 OT [facility] Goals [facility] Goals Time Frame: Oct 20, 2020 Eating (QC): 6 Oral Hygiene (QC): 6 Toileting Hygiene (QC): 4 Shower/Bathe Self (QC): 4 Upper Body Dressing (QC): 5 Lower Body Dressing (QC): 4 On/Off Footwear (QC): 4 Additional Goals: 1-Demonstrate ADL Tasks, 2-Verbalize Understanding, 3- ImproveStrength/Jeramy 1=Demonstrate adherence to instructed precautions during ADL tasks. 2=Patient will verbalize/demonstrate understanding of assistive devices/modifications for ADL. 3=Patient will improve strength/tolerance for activity to enable patient to perform ADL's. OT Education/Plan Problem List/Assessment Assessment: Impaired Cognition Discharge Recommendations Plan/Recommendations: Continue POC Therapy Discharge Recommendati: Home & Family, Post Acute OT Treatment Plan/Plan of Care Treatment,Training & Education: Yes Patient would benefit from OT for education, treatment and training to promote independence in ADL's, mobility, safety and/or upper extremity function for ADL's. Plan of Care: ADL Retraining, Functional Mobility, UE Funct Exercise/Act, UE Neuromus Re-Ed/Coord Treatment Duration: Oct 20, 2020 Frequency: At least 5 of 7 days/Wk (IRF) Estimated Hrs Per Day: 1.5 hours per day Agreement: Yes Rehab Potential: Good Time/GCodes Start Time: 13:55 Stop Time: 14:25 Total Time Billed (hr/min): 30 Billed Treatment Time 1, FA x 2 AMISH ROBERTO OT Sep 28, 2020 15:05
--- NOTE | 2020-09-28 16:00 | NUR ---
CM/SS PATIENT CARE CONFERENCE Reviewed Summary with patient, updated his is sister Aan Romero with his permission. Ana is here from [place], she is planning to move back here per patient. The goal remains for patient to return to either his home or the home of another family member. Coordinated initial family session of education/demonstration of level of care required for Sunday, October 03, 900. Ana and Marry will be coming, hospital entry and access approved through protocols. Lead Therapist informed, communication board updated. Barriers to discharge that have been identified by Ana are home access via wheelchair as in width of doorways. She indicates that available homes would all have the same issue due to age of structure. Discussed ramp with Ana day after patient's admission and she indicated they could pursue this without difficulty. Further discussion after family is able to participate in therapy sessions and have a more complete understanding of patient's level of functioning.
[2020-09-28 17:11] VITALS: BP 113/73
[2020-09-28] MEDS: DOXYCYCLINE 100 MG (VIBRAMYCIN) TABLET PO SCH (20:45)
[2020-09-28] MEDS: ZONISAMIDE 100 MG CAP (ZONEGRAN) NON-FORMULARY PO SCH (20:46)
[2020-09-29 06:00] VITALS: BP 117/75
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
[2020-09-29] MEDS: FLUoxetine HCL 20 MG (PROzac) CAP PO SCH (07:37)
[2020-09-29] MEDS: LACTULOSE SYRUP 10GM/15ML (ENULOSE) 30ML UDC PO PRN ×2 (07:37→13:34)
[2020-09-29] MEDS: APIXABAN 5 MG (ELIQUIS) TABLET PO SCH ×2 (07:37→20:11)
[2020-09-29] MEDS: VIMPAT 200 MG TABLET PO SCH ×2 (07:38→20:12)
[2020-09-29] MEDS: LACOSAMIDE 100 MG PO SCH ×2 (07:38→20:13)
--- NOTE | 2020-09-29 09:07 | NUR ---
Talked to Nadine from Dr. Peralta's office regarding orders s/p ACL repair to RLE on 08/18/2020. Patient is NWB to RLE for 6 weeks from date of surgery (08/18/2020). PROM, flexion and leg lifts to strengthen quad are OK. Bobby Alva, PT, Sherice Mcintyre, OT and Dr. Vo notified.
--- NOTE | 2020-09-29 10:55 | Physical Therapy Daily Note ---
PT Daily Note-Current Subjective Pt. up in w/c in gym. Agrees to therapy but says he is very tired today. Pt. denies pain when asked but did say "yes" to tingling in the R LE. Per nursing notes, ok to begin WB on the R LE. Transfers SCALE: Activities may be completed with or without assistive devices. 2-Cpvzjammlc-izqwxpu completes the activity by him/herself with no assistance from a helper. 5-Set-up or Clean-up Assistance-helper sets up or cleans up; patient completes activity. [place] assists only prior to or following the activity. 4-Supervision or Touching Assistance-helper provides verbal cues and/or touching/steadying and/or contact guard assistance as patient completes activit y. Assistance may be provided throughout the activity or intermittently. 3-Partial/Moderate Assistance-helper does LESS THAN HALF the effort. [place] lifts, holds or supports trunk or limbs, but provides less than half the effort. 2-Substantial/Maximal Assistance-helper does MORE THAN HALF the effort. [place] lifts or holds trunk or limbs and provides more than half the effort. 0-Cftcicegz-bqsyjv does ALL the effort. Patient does none of the effort to complete the activity. Or, the assistance of 2 or more helpers is required for the patient to complete the activity. If activity was not attempted, code reason: 7-Patient Refused. 9-Not Applicable-not attempted and the patient did not perform the activity before the current illness, exacerbation or injury. 10-Not Attempted due to Environmental Limitations-(lack of equipment, weather restraints, etc.). 88-Not Attempted due to Medical Conditions or Safety Concerns. Sit to Lying (QC): 3 Lying to Sitting/Side of Bed(Q: 4 Sit to Stand (QC): 4 Chair/Whd-qh-Rjaim Xfer(QC): 3 Weight Bearing Right Lower Extremity: Right Weight Bearing/Tolerated Left Lower Extremity: Left Full Weight Bearing right leg brace to be on at all times, knee flexion limited to 90 degrees. Ok to begin WB on R on 09/29/20. Gait Training Does the Patient Walk?: Yes Distance: 5 ft Gait Persons Needed: 2 Gait Assistive Device: Parallel Bars PT with mild blocking on R knee and advancing R LE for patient to take 4 steps in // bars Wheelchair Training Does the Pt Use a Wheelchair?: Yes Wheel 150 ft (QC): 4 Type of Wheelchair: Manual cuing how to properly use L UE and lower extremity to maneuver w/c Exercises Supine Ex: Heel Slides, Hip abd/add Supine Reps: 20 Seated Therapy Exercises: Ankle pumps, Long arc quads Seated Reps: 20 Standing: Sit to Stand, Weight shifts Standing Reps: 5 PROM knee flex using SB to 90 deg with cues for hamstrings facilitation. PROM only completed of the R hip as no active movement noted. Treatments LE exercises, weightshifting and ambulation in // bars, w/c mobility Assessment Current Status: Good Progress, Fair Progress Pt. did well with beginning weight shifting to R LE although minimal to no active movement noted in the quads/hamstrings. Blocking of the R knee necessary and therapist to advance R LE for gait training. Able to achieve 90 deg flex passively, again no active movement noted with exercises. Pt. is min-mod A with transfers towards the left. Pt. in bed post session with call light and all needs met. Pt. very fatigued at end of session. PT Short Term Goals Short Term Goals Time Frame: Sep 29, 2020 Roll Left & Right: 4 Sit to lyin Lying to sitting on side of be: 4 Sit to stand: 4 Chair/oix-ux-whvnp transfer: 4 Wheel 50ft w/2 turns: 4 Wheel 150 feet: 4 PT Research Nutritionist Goals Prison Goals PT Research Nutritionist Goals Time Frame: Oct 13, 2020 Roll Left & Right (QC): 4 (SBA) Sit to Lying (QC): 4 (SBA) Lying-Sitting on Side/Bed(QC): 4 (SBA) Sit to Stand (QC): 4 (SBA) Chair/Hvp-fk-Igcso Xfer(QC): 4 (SBA) Toilet Transfer (QC): 4 (SBA) Car Transfer (QC): 4 (SBA) Does the Patient Walk: No and Walking Goal NOT indicated Walk 10 feet (QC): 88 Walk 50ft with 2 Turns (QC): 88 Walk 150 ft (QC): 88 Walking 10ft on Uneven Surface: 88 1 Step (curb) (QC): 88 4 Steps (QC): 88 12 Steps (QC): 88 Picking up an Object (QC): 88 Wheel 50 feet with 2 turns (QC: 6 Wheel 150 feet: 6 PT Plan Treatment/Plan Treatment Plan: Continue Plan of Care Treatment Plan: Bed Mobility, Education, Functional Activity Jeramy, Functional Strength, Group Therapy, Gait, Safety, Therapeutic Exercise, Transfers Treatment Duration: Oct 13, 2020 Frequency: At least 5 of 7 days/Wk (IRF) Estimated Hrs Per Day: 1.5 hours per day Patient and/or Family Agrees t: Yes Time/GCodes Time In: 929 Time Out: 1030 Total Billed Treatment Time: 60 Total Billed Treatment 1, FA 30', Ex 15', [facility] 15' ANIVAL VILLATORO PT Sep 29, 2020 10:55
--- NOTE | 2020-09-29 10:56 | Occupational Ther Daily Note ---
OT Current Status-Daily Note Subjective No pain reported. Appearance Pt. in reclining chair asleep when OT entered. Mental Status/Objective Patient Orientation: Person, Place ADL-Treatment Therapy Code Descriptions/Definitions Functional [place] Measure: 0=Not Assessed/NA 4=Minimal Assistance 1=Total Assistance 5=Supervision or Setup 2=Maximal Assistance 6=Modified [place] 3=Moderate Assistance 7=Complete IndependenceSCALE: Activities may be completed with or without assistive devices. 9-Xrvtvcrwbj-eqjexml completes the activity by him/herself with no assistance from a helper. 5-Set-up or Clean-up Assistance-helper sets up or cleans up; patient completes activity. [place] assists only prior to or following the activity. 4-Supervision or Touching Assistance-helper provides verbal cues and/or touchi ng/steadying and/or contact guard assistance as patient completes activity. Assistance may be provided throughout the activity or intermittently. 3-Partial/Moderate Assistance-helper does LESS THAN HALF the effort. [place] lifts, holds or supports trunk or limbs, but provides less than half the effort. 2-Substantial/Maximal Assistance-helper does MORE THAN HALF the effort. [place] lifts or holds trunk or limbs and provides more than half the effort. 4-Scjatmxku-tdgbqo does ALL the effort. Patient does none of the effort to complete the activity. Or, the assistance of 2 or more helpers is required for the patient to complete the activity. If activity was not attempted, code reason: 7-Patient Refused. 9-Not Applicable-not attempted and the patient did not perform the activity before the current illness, exacerbation or injury. 10-Not Attempted due to Environmental Limitations-(lack of equipment, weather restraints, etc.). 88-Not Attempted due to Medical Conditions or Safety Concerns. Oral Hygiene (QC): 4 (SBA and increased time to brush teeth while seated in wheelchair at sink.) Shower/Bathe Self (QC): 3 (Pt. able to shower self with mod assist for rear abi area and in stance. OT did observe him at first, and it is noted that pt. needs cues to do each step, as he will sit in shower and splash water, but will not wash hair, use washcloth, etc...) Upper Body Dressing (QC): 3 (Mod assist this date.) Lower Body Dressing (QC): 2 (Pt. able to thread left LE into shorts, but requires assistance to thread right LE, stand, and don over hips. Pt. attempts to don himself over hips, but loses balance in stance when he is not holding onto stable surface. Requires assistance for knee brace as well.) On/Off Footwear: 2 Other Treatment After ADLs, pt. propels wheelchair with min assist to therapy gym. OT asks pt. to sort deck of cards according to suit, to work on visual processing, and attending to right side. Pt. able to do this with no difficulty, using left UE. OT then engaged pt. in game of "Bureau in the Corner." Pt. able to remember steps, and follow rules of game. OT provided card diez for pt for one handed use. All needs met and pt. up in chair when PT came into gym to work with him. *director business let this therapist know via text that pt's was consulted, and his NWB status changes this date. He is now WBAT. Education OT Patient Education: Correct positioning, Modified ADL techniques, Progress toward Goal/Update tx plan, Purpose of tx/functional activities, Reviewed precautions, Rehab process, Transfer techniques Teaching Recipient: Patient Teaching Methods: Demonstration, Discussion Response to Teaching: Verbalize Understanding, Return Demonstration OT Short Term Goals Short Term Goals Time Frame: Oct 06, 2020 Eatin Oral hygiene: 3 Toileting hygiene: 3 Shower/bathe self: 3 Upper body dressin Lower body dressin Putting on/taking off footwear: 3 OT Medical Imaging Tech Goals Retirement Goals Time Frame: Oct 20, 2020 Eating (QC): 6 Oral Hygiene (QC): 6 Toileting Hygiene (QC): 4 Shower/Bathe Self (QC): 4 Upper Body Dressing (QC): 5 Lower Body Dressing (QC): 4 On/Off Footwear (QC): 4 Additional Goals: 1-Demonstrate ADL Tasks, 2-Verbalize Understanding, 3- ImproveStrength/Jeramy 1=Demonstrate adherence to instructed precautions during ADL tasks. 2=Patient will verbalize/demonstrate understanding of assistive devices/modifications for ADL. 3=Patient will improve strength/tolerance for activity to enable patient to perform ADL's. OT Education/Plan Problem List/Assessment Assessment: Decreased Activ Tolerance, Decreased UE Strength, Dependent Transfers, Impaired Cognition, Impaired Funct Balance, Impaired I ADL's, Impaired Self-Care Skills, Restricted Funct UE ROM, Visual-Perceptual Deficit Discharge Recommendations Plan/Recommendations: Continue POC Therapy Discharge Recommendati: Post Acute OT Treatment Plan/Plan of Care Treatment,Training & Education: Yes Patient would benefit from OT for education, treatment and training to promote independence in ADL's, mobility, safety and/or upper extremity function for ADL's. Plan of Care: ADL Retraining, Functional Mobility, UE Funct Exercise/Act, UE Neuromus Re-Ed/Coord Treatment Duration: Oct 20, 2020 Frequency: At least 5 of 7 days/Wk (IRF) Estimated Hrs Per Day: 1.5 hours per day Agreement: Yes Rehab Potential: Good Time/GCodes Start Time: 08:15 Stop Time: 09:30 Total Time Billed (hr/min): 75 Billed Treatment Time 1, ADL x 45minutes, FA x 30minutes AMISH ROBERTO OT Sep 29, 2020 10:56
--- NOTE | 2020-09-29 11:07 | Speech Therapy Daily Note ---
Speech Daily Progress Note Subjective Date Seen by Provider: Sep 29, 2020 Time Seen by Provider: 00:30 Patient was resting in his bed when I entered his room. Objective Patient completed answering simple questions requiring one word answers with 20% given mod to max cues/repetitions. Assessment Assessment Current Status: Fair Progress Treatment Plan Continue Plan of Care Speech Short Term Goals Short Term Goals Short Term Goals 1) Patient will tolerate least restrictive diet level without s/s of aspiration at 80% or greater with minimal cues. 2) Patient will utilize compensatory strategies as trained at 80% or greater with minima cues. 3) Patient will follow multi step commands with 90% or greater with minimal cues. 4) Patient will utilize communication board to assist with meeting wants/needs with moderate cue.s Speech Wiener Packer Goals Wiener Packer Goals Patient will maintain adequate nutrition/hydration via safe effective swallow function. Patient will participate in ongoing assessment for functional level of language abilities. Speech-Plan Patient/Family Goals Patient/Family Goals: Patient plans on returning to his home with family support upon discharge. Treatment Plan Speech Therapy Treatment Plan: Continue Plan of Care Treatment Duration: Oct 12, 2020 Frequency: 4 times per week (Patient will receive skilled ST 4 to 5x per week) Estimated Hrs Per Day: .5 hour per day Rehab Potential: Good Barriers to Learning: Patient's recent CVA, mod to severe expressive aphasia. Pt/Family Agrees to Plan: Yes Safety Risks/Education Teaching Recipient: Patient Teaching Methods: Demonstration, Discussion Response to Teaching: Verbalize Understanding, Return Demonstration Education Topics Provided: Continued safety within his room, Safety with oral intake Time Speech Therapy Time In: 10:30 Speech Therapy Time Out: 11:00 Total Billed Time: 30 Billed Treatment Time 1, SLSANDRINE, DENISE Duran Sep 29, 2020 11:06
--- NOTE | 2020-09-29 11:18 | Physical Therapy Daily Note ---
PT Daily Note-Current Subjective Pt. in bed, indicates with "yes" that he is tired. Transfers SCALE: Activities may be completed with or without assistive devices. 8-Jzkfndcgia-fnnrbad completes the activity by him/herself with no assistance from a helper. 5-Set-up or Clean-up Assistance-helper sets up or cleans up; patient completes activity. [place] assists only prior to or following the activity. 4-Supervision or Touching Assistance-helper provides verbal cues and/or touching/steadying and/or contact guard assistance as patient completes activity. Assistance may be provided throughout the activity or intermittently. 3-Partial/Moderate Assistance-helper does LESS THAN HALF the effort. [place] lifts, holds or supports trunk or limbs, but provides less than half the effort. 2-Substantial/Maximal Assistance-helper does MORE THAN HALF the effort. [place] lifts or holds trunk or limbs and provides more than half the effort. 4-Rrdzvemus-tiaqgq does ALL the effort. Patient does none of the effort to complete the activity. Or, the assistance of 2 or more helpers is required for the patient to complete the activity. If activity was not attempted, code reason: 7-Patient Refused. 9-Not Applicable-not attempted and the patient did not perform the activity before the current illness, exacerbation or injury. 10-Not Attempted due to Environmental Limitations-(lack of equipment, weather restraints, etc.). 88-Not Attempted due to Medical Conditions or Safety Concerns. Weight Bearing Right Lower Extremity: Right Weight Bearing/Tolerated Left Lower Extremity: Left Full Weight Bearing right leg brace to be on at all times, knee flexion limited to 90 degrees. Ok to begin WB on R on 09/29/20. Exercises Supine Ex: Ankle pumps, Quad Set, Glut sets, Heel Slides, Straight leg raise, Hip abd/add Supine Reps: 15 PROM completed on R LE, all available planes. Treatments bed exercises Assessment Current Status: Fair Progress Pt. has no active movement on the R LE but does well with L LE exercises. Pt. in bed post session with call light and all needs met. PT Short Term Goals Short Term Goals Time Frame: Sep 29, 2020 Roll Left & Right: 4 Sit to lyin Lying to sitting on side of be: 4 Sit to stand: 4 Chair/ibm-ad-pisqh transfer: 4 Wheel 50ft w/2 turns: 4 Wheel 150 feet: 4 PT Nursing Home Goals Child Development Consultant Goals PT Nursing Home Goals Time Frame: Oct 13, 2020 Roll Left & Right (QC): 4 (SBA) Sit to Lying (QC): 4 (SBA) Lying-Sitting on Side/Bed(QC): 4 (SBA) Sit to Stand (QC): 4 (SBA) Chair/Hje-ec-Jlwdt Xfer(QC): 4 (SBA) Toilet Transfer (QC): 4 (SBA) Car Transfer (QC): 4 (SBA) Does the Patient Walk: No and Walking Goal NOT indicated Walk 10 feet (QC): 88 Walk 50ft with 2 Turns (QC): 88 Walk 150 ft (QC): 88 Walking 10ft on Uneven Surface: 88 1 Step (curb) (QC): 88 4 Steps (QC): 88 12 Steps (QC): 88 Picking up an Object (QC): 88 Wheel 50 feet with 2 turns (QC: 6 Wheel 150 feet: 6 PT Plan Treatment/Plan Treatment Plan: Continue Plan of Care Treatment Plan: Bed Mobility, Education, Functional Activity Jeramy, Functional Strength, Group Therapy, Gait, Safety, Therapeutic Exercise, Transfers Treatment Duration: Oct 13, 2020 Frequency: At least 5 of 7 days/Wk (IRF) Estimated Hrs Per Day: 1.5 hours per day Patient and/or Family Agrees t: Yes Time/GCodes Time In: 1105 Time Out: 1120 Total Billed Treatment Time: 15 Total Billed Treatment 1, Ex 15' ANIVAL VILLATORO PT Sep 29, 2020 11:18
[2020-09-29] MEDS: SENNA W/DOCUSATE (SENOKOT S) TABLET PO PRN (13:34)
[2020-09-29] MEDS: DOCUSATE SODIUM 100 MG (COLACE) CAP PO PRN (13:34)
[2020-09-29 16:15] VITALS: BP 109/65
[2020-09-29] MEDS: DOXYCYCLINE 100 MG (VIBRAMYCIN) TABLET PO SCH (20:12)
[2020-09-29] MEDS: ZONISAMIDE 100 MG CAP (ZONEGRAN) NON-FORMULARY PO SCH (20:14)
--- NOTE | 2020-09-29 21:15 | NUR ---
Pt vomiting at this time. 100cc of bile looking emesis noted. Zofran ODT given but pt vomited it right back up. Cont to monitor.
[2020-09-29] MEDS: ONDANSETRON 4 MG (ZOFRAN) ORAL DISSOLVE TAB PO PRN (21:29)
--- NOTE | 2020-09-29 21:48 | NUR ---
Notified Dr. Vo of pt vomiting and asked for something else for nausea. Phenergan 25mg IM q 6 hrs prn n/v. Med given at 2156. Cont to monitor. Addendum: 09/29/20 at 2206 by JOHNNIE SERRA RN Pt had also been incont x2 of stool while vomiting.
[2020-09-29] MEDS ORDERED: PROMETHAZINE INJ 25 MG/ML (PHENERGAN) AMP ONE (21:50)
[2020-09-29] MEDS ORDERED: PROMETHAZINE INJ 25 MG/ML (PHENERGAN) AMP IM/IV PRN (22:00)
[2020-09-30 05:43] VITALS: BP 122/78
[2020-09-30 05:55] LABS: BASOPHILS % (AUTO) 0 % (0-10); EOSINOPHILS # (AUTO) 0.1 10^3/uL (0.0-0.3); EOSINOPHILS % (AUTO) 1 % (0-10); HEMATOCRIT 43 % (40-54); HEMOGLOBIN 14.5 g/dL (13.3-17.7); LYMPHOCYTES # (AUTO) 1.9 10^3/uL (1.0-4.0); LYMPHOCYTES % (AUTO) 27 % (12-44); MEAN CORPUSCULAR HEMOGLOBIN 31 pg (25-34); MEAN CORPUSCULAR HGB CONC 34 g/dL (32-36); MEAN CORPUSCULAR VOLUME 92 fL (80-99); MEAN PLATELET VOLUME 10.5 fL (9.0-12.2); MONOCYTES # (AUTO) 0.5 10^3/uL (0.0-1.0); MONOCYTES % (AUTO) 7 % (0-12); NEUTROPHILS # (AUTO) 4.5 10^3/uL (1.8-7.8); NEUTROPHILS % (AUTO) 64 % (42-75); PLATELET COUNT 205 10^3/uL (130-400); WHITE BLOOD COUNT 7.1 10^3/uL (4.3-11.0)
[2020-09-30 06:09] LABS: ALBUMIN 3.9 GM/DL (3.2-4.5); CHLORIDE 105 MMOL/L (98-107); SODIUM 139 MMOL/L (135-145)
[2020-09-30 06:10] LABS: AMYLASE 60 U/L (25-125)
[2020-09-30 06:12] LABS: GLUCOSE 98 MG/DL (70-105); TOTAL PROTEIN 6.6 GM/DL (6.4-8.2)
[2020-09-30 06:13] LABS: CARBON DIOXIDE 24 MMOL/L (21-32)
[2020-09-30 06:14] LABS: BILIRUBIN,TOTAL 0.7 MG/DL (0.1-1.0)
--- NOTE | 2020-09-30 06:14 | NUR ---
No further episodes of n/v throughout the noc. Cont to monitor.
[2020-09-30 06:15] LABS: ALKALINE PHOSPHATASE 72 U/L (40-136)
[2020-09-30 06:16] LABS: CREATININE SERUM 0.83 MG/DL (0.60-1.30); GFR ESTIMATED > 60
[2020-09-30 06:17] LABS: BUN/CREATININE RATIO 16
[2020-09-30 06:18] LABS: ALANINE AMINOTRANSFERASE 163 U/L (0-55)
[2020-09-30 06:19] LABS: LIPASE 53 U/L (8-78)
[2020-09-30] MEDS ORDERED: LACOSAMIDE 100 MG PO ONE (07:22)
[2020-09-30] MEDS: APIXABAN 5 MG (ELIQUIS) TABLET PO SCH ×2 (08:42→20:35)
[2020-09-30] MEDS: FLUoxetine HCL 20 MG (PROzac) CAP PO SCH (08:42)
[2020-09-30] MEDS: VIMPAT 200 MG TABLET PO SCH ×2 (08:43→20:45)
[2020-09-30] MEDS: LACOSAMIDE 100 MG PO SCH ×2 (08:44→20:38)
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
[2020-09-30 16:36] VITALS: BP 113/75
[2020-09-30] MEDS: DOXYCYCLINE 100 MG (VIBRAMYCIN) TABLET PO SCH (20:35)
[2020-09-30] MEDS: ZONISAMIDE 100 MG CAP (ZONEGRAN) NON-FORMULARY PO SCH (20:37)
[2020-09-30] MEDS: ACETAMINOPHEN 325 MG TABLET PO PRN (21:42)
--- NOTE | 2020-09-30 22:00 | NUR ---
pt sister Mariam called for update on her brother having n/v on 09/29/20. pt sister request that she be notified of any medication changes for her brother. pt acknowledged ok to talk with his sister about his care. pt having no n/v at this time.
[2020-10-01 05:24] VITALS: BP 119/84
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
--- NOTE | 2020-10-01 07:30 | NUR ---
report given to day shift et also notified on coming rn that pt sister Mariam wants to be notified of her brother starting new meds.
--- NOTE | 2020-10-01 07:37 | Occupational Ther Daily Note ---
OT Current Status-Daily Note Subjective Pt seated on toilet when OT entered room, agreeable to OT tx. Pt's breakfast in room, but pt declined eating at this time. ADL-Treatment Therapy Code Descriptions/Definitions Functional [place] Measure: 0=Not Assessed/NA 4=Minimal Assistance 1=Total Assistance 5=Supervision or Setup 2=Maximal Assistance 6=Modified [place] 3=Moderate Assistance 7=Complete IndependenceSCALE: Activities may be completed with or without assistive devices. 9-Kosdsvzjsu-hbdyxrm completes the activity by him/herself with no assistance from a helper. 5-Set-up or Clean-up Assistance-helper sets up or cleans up; patient completes activity. [place] assists only prior to or following the activity. 4-Supervision or Touching Assistance-helper provides verbal cues and/or touching/steadying and/or contact guard assistance as patient completes ac tivity. Assistance may be provided throughout the activity or intermittently. 3-Partial/Moderate Assistance-helper does LESS THAN HALF the effort. [place] lifts, holds or supports trunk or limbs, but provides less than half the effort. 2-Substantial/Maximal Assistance-helper does MORE THAN HALF the effort. [place] lifts or holds trunk or limbs and provides more than half the effort. 0-Oppqxnchi-kzpjng does ALL the effort. Patient does none of the effort to complete the activity. Or, the assistance of 2 or more helpers is required for the patient to complete the activity. If activity was not attempted, code reason: 7-Patient Refused. 9-Not Applicable-not attempted and the patient did not perform the activity before the current illness, exacerbation or injury. 10-Not Attempted due to Environmental Limitations-(lack of equipment, weather restraints, etc.). 88-Not Attempted due to Medical Conditions or Safety Concerns. Oral Hygiene (QC): 4 (SBA seated at sink) Upper Body Dressing (QC): 3 (Mod A) Lower Body Dressing (QC): 2 (Assist threading RLE, stand and pant hike, pt able to thread LLE as OT held pants open. Assist with leg brace.) Toileting Hygiene (QC): 1 (Assist with hygiene post BM) Toilet Transfer (QC): 3 Other Treatment Pt seated on toilet, OT assisted pt with hygiene, then transferred to w/c. Pt declined eating breakfast. Pt donned clothes at w/c, then propelled w/c to therapy gym, min A. OT performed PROM RUE, no active movement on this date. For visual processing, pt completed rubber band activity, placing rubberbands on pegs following pattern, using LUE. Pt required min cues for proper placement of bands. Pt then sorted deck of cards first by suit, then high to low, 1 error during task, using LUE. Pt propelled w/c around [facility] common area and back to his room, min A w/c mobility. Pt transferred to recliner, [facility], min A. Post tx, pt seated in recliner, call light in reach and all needs met. Education OT Patient Education: Correct positioning, Modified ADL techniques, Progress toward Goal/Update tx plan, Purpose of tx/functional activities, Safety issues, Transfer techniques Teaching Recipient: Patient Teaching Methods: Discussion Response to Teaching: Verbalize Understanding OT Short Term Goals Short Term Goals Time Frame: Oct 06, 2020 Eatin Oral hygiene: 3 Toileting hygiene: 3 Shower/bathe self: 3 Upper body dressin Lower body dressin Putting on/taking off footwear: 3 OT [facility] Goals Nail Polish Brush Machine Feeder Goals Time Frame: Oct 20, 2020 Eating (QC): 6 Oral Hygiene (QC): 6 Toileting Hygiene (QC): 4 Shower/Bathe Self (QC): 4 Upper Body Dressing (QC): 5 Lower Body Dressing (QC): 4 On/Off Footwear (QC): 4 Additional Goals: 1-Demonstrate ADL Tasks, 2-Verbalize Understanding, 3- ImproveStrength/Jeramy 1=Demonstrate adherence to instructed precautions during ADL tasks. 2=Patient will verbalize/demonstrate understanding of assistive devices/modifications for ADL. 3=Patient will improve strength/tolerance for activity to enable patient to perform ADL's. OT Education/Plan Problem List/Assessment Assessment: Decreased Activ Tolerance, Decreased UE Strength, Impaired Funct Balance, Impaired I ADL's, Impaired Self-Care Skills, Restricted Funct UE ROM Discharge Recommendations Plan/Recommendations: Continue POC Treatment Plan/Plan of Care Patient would benefit from OT for education, treatment and training to promote independence in ADL's, mobility, safety and/or upper extremity function for ADL's. Plan of Care: ADL Retraining, Functional Mobility, UE Funct Exercise/Act, UE Neuromus Re-Ed/Coord Treatment Duration: Oct 20, 2020 Frequency: At least 5 of 7 days/Wk (IRF) Estimated Hrs Per Day: 1.5 hours per day Agreement: Yes Rehab Potential: Good Time/GCodes Start Time: 07:00 Stop Time: 08:00 Total Time Billed (hr/min): 60 Billed Treatment Time 1, ADL (15'), FA 3 (45') KAYLEY JUSTICE OT Oct 01, 2020 07:37
[2020-10-01] MEDS: APIXABAN 5 MG (ELIQUIS) TABLET PO SCH ×2 (08:01→20:26)
[2020-10-01] MEDS: VIMPAT 200 MG TABLET PO SCH ×2 (08:01→20:27)
[2020-10-01] MEDS: LACOSAMIDE 100 MG PO SCH ×2 (08:01→20:26)
[2020-10-01] MEDS: FLUoxetine HCL 20 MG (PROzac) CAP PO SCH (08:01)
--- NOTE | 2020-10-01 12:24 | Therapy Group Daily Note ---
Therapy Daily Group Note Patient Education Topic Energy Cons Session Ratio (pt:therapist): 4:1 Goal of Session: Energy Conservation Tech. Goal Met for this Session: Yes Pt Benefit of Group: Contributions to Others, F/U Use of Strategies @Home, Recognition of Peers, Socialization Other/Notes Pt taken to [facility] common area via w/c. Pt stated orientation (name, where pt is from, and favorite holiday memory). Pt participated in socialization, and education on the 4 P's of energy conservation (plan, prioritize, position, and pace). Pt acknowledged education topics, recalling 2/4 "P's" as a group. Pt verbalized one technique they are going to use for energy conservation. Pt taken back to room. Post tx, pt seated in recliner, call light in reach and all needs met. Start Time: 11:00 Stop Time: 12:00 Total Billed Treatment Time: 60 Total Billed Treatment 1, GRP KAYLEY JUSTICE OT Oct 01, 2020 12:24
--- NOTE | 2020-10-01 12:41 | Physical Therapy Daily Note ---
PT Daily Note-Current Subjective Patient agrees to therapy. Pain Numeric Pain Scale: 0-No Pain Transfers SCALE: Activities may be completed with or without assistive devices. 7-Ltkatxhaen-ifumnvr completes the activity by him/herself with no assistance from a helper. 5-Set-up or Clean-up Assistance-helper sets up or cleans up; patient completes activity. [place] assists only prior to or following the activity. 4-Supervision or Touching Assistance-helper provides verbal cues and/or touching/steadying and/or contact guard assistance as patient completes activity. Assistance may be provided throughout the activity or intermittently. 3-Partial/Moderate Assistance-helper does LESS THAN HALF the effort. [place] lifts, holds or supports trunk or limbs, but provides less than half the effort. 2-Substantial/Maximal Assistance-helper does MORE THAN HALF the effort. [place] lifts or holds trunk or limbs and provides more than half the effort. 3-Dooiurbuf-qgzbdc does ALL the effort. Patient does none of the effort to complete the activity. Or, the assistance of 2 or more helpers is required for the patient to complete the activity. If activity was not attempted, code reason: 7-Patient Refused. 9-Not Applicable-not attempted and the patient did not perform the activity before the current illness, exacerbation or injury. 10-Not Attempted due to Environmental Limitations-(lack of equipment, weather restraints, etc.). 88-Not Attempted due to Medical Conditions or Safety Concerns. Sit to Stand (QC): 3 Weight Bearing Right Lower Extremity: Right Weight Bearing/Tolerated Left Lower Extremity: Left Full Weight Bearing right leg brace to be on at all times, knee flexion limited to 90 degrees. Ok to begin WB on R on 09/29/20. Exercises Standing: Weight shifts Seated isometrics/facilitation activites for (R) LE NuStep Minutes: 10 NuStep Workload: 1 Assessment Current Status: Fair Progress Patient continues to have flaccid (R) LE. PT Short Term Goals Short Term Goals Time Frame: Sep 29, 2020 Roll Left & Right: 4 Sit to lyin Lying to sitting on side of be: 4 Sit to stand: 4 Chair/ylg-wq-hzjfd transfer: 4 Wheel 50ft w/2 turns: 4 Wheel 150 feet: 4 PT Hand Etcher Helper Goals Fdc Goals PT Fdc Goals Time Frame: Oct 13, 2020 Roll Left & Right (QC): 4 (SBA) Sit to Lying (QC): 4 (SBA) Lying-Sitting on Side/Bed(QC): 4 (SBA) Sit to Stand (QC): 4 (SBA) Chair/Rdo-iq-Orjea Xfer(QC): 4 (SBA) Toilet Transfer (QC): 4 (SBA) Car Transfer (QC): 4 (SBA) Does the Patient Walk: No and Walking Goal NOT indicated Walk 10 feet (QC): 88 Walk 50ft with 2 Turns (QC): 88 Walk 150 ft (QC): 88 Walking 10ft on Uneven Surface: 88 1 Step (curb) (QC): 88 4 Steps (QC): 88 12 Steps (QC): 88 Picking up an Object (QC): 88 Wheel 50 feet with 2 turns (QC: 6 Wheel 150 feet: 6 PT Plan Treatment/Plan Treatment Plan: Continue Plan of Care Treatment Plan: Bed Mobility, Education, Functional Activity Jeramy, Functional Strength, Group Therapy, Gait, Safety, Therapeutic Exercise, Transfers Treatment Duration: Oct 13, 2020 Frequency: At least 5 of 7 days/Wk (IRF) Estimated Hrs Per Day: 1.5 hours per day Patient and/or Family Agrees t: Yes Time/GCodes Time In: 1000 Time Out: 1100 Total Billed Treatment Time: 60 Total Billed Treatment 1, EX x 4 FATOUMATA DAWSON PT Oct 01, 2020 12:41
[2020-10-01 17:57] VITALS: BP 112/71
[2020-10-01] MEDS: DOXYCYCLINE 100 MG (VIBRAMYCIN) TABLET PO SCH (20:25)
[2020-10-01] MEDS: ZONISAMIDE 100 MG CAP (ZONEGRAN) NON-FORMULARY PO SCH (20:28)
--- NOTE | 2020-10-01 21:30 | NUR ---
Pt vomited approx 50cc yellowish colored emesis at this time. Pt had been up to bathroom and upon getting back into bed became nauseated. No meds given at this time as family does not want him to have any meds for nausea d/t drowsiness. Will cont to monitor.
--- NOTE | 2020-10-01 22:15 | NUR ---
Pt resting in bed with eyes closed. No distress, discomfort or nausea noted. Cont to monitor.
[2020-10-02 05:02] VITALS: BP 130/86
[2020-10-02] MEDS: ACETAMINOPHEN 325 MG TABLET PO PRN (05:17)
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
--- NOTE | 2020-10-02 08:43 | NUR ---
ZOFRAN FOR C/O NAUSEA. PATIENT DENIES HEADACHE AT THIS TIME. NO FURTHER C/O. CONT TO MONITOR.
[2020-10-02] MEDS: FLUoxetine HCL 20 MG (PROzac) CAP PO SCH (09:28)
[2020-10-02] MEDS: APIXABAN 5 MG (ELIQUIS) TABLET PO SCH ×2 (09:28→23:57)
[2020-10-02] MEDS: VIMPAT 200 MG TABLET PO SCH ×2 (09:29→21:01)
[2020-10-02] MEDS: LACOSAMIDE 100 MG PO SCH ×2 (09:30→20:56)
[2020-10-02 17:14] VITALS: BP 126/70
--- NOTE | 2020-10-02 19:10 | NUR ---
Bedside report received from DWAIN HOANG, assume care of pt
--- NOTE | 2020-10-02 20:40 | NUR ---
Sister Mariam called asking would this nurse give meds in partial batches to try to pinpoint what meds might be causing nausea, this nurse agreed to try this with pt consent
--- NOTE | 2020-10-02 21:45 | NUR ---
Pt vomited approximately 100ml, cleaned & given Zofran 4mg sl
[2020-10-02] MEDS: ONDANSETRON 4 MG (ZOFRAN) ORAL DISSOLVE TAB PO PRN (21:50)
--- NOTE | 2020-10-02 21:58 | NUR ---
called sister Mariam & advised of nausea after VIMPAT
[2020-10-02] MEDS: ZONISAMIDE 100 MG CAP (ZONEGRAN) NON-FORMULARY PO SCH (23:57)
[2020-10-02] MEDS: DOXYCYCLINE 100 MG (VIBRAMYCIN) TABLET PO SCH (23:57)
[2020-10-03 05:17] VITALS: BP 114/76
[2020-10-03 06:13] LABS: BASOPHILS % (AUTO) 0 % (0-10); EOSINOPHILS % (AUTO) 1 % (0-10); HEMATOCRIT 43 % (40-54); HEMOGLOBIN 14.5 g/dL (13.3-17.7); LYMPHOCYTES # (AUTO) 1.8 10^3/uL (1.0-4.0); LYMPHOCYTES % (AUTO) 28 % (12-44); MEAN CORPUSCULAR HEMOGLOBIN 31 pg (25-34); MEAN CORPUSCULAR HGB CONC 34 g/dL (32-36); MEAN CORPUSCULAR VOLUME 90 fL (80-99); MEAN PLATELET VOLUME 10.9 fL (9.0-12.2); MONOCYTES # (AUTO) 0.5 10^3/uL (0.0-1.0); MONOCYTES % (AUTO) 7 % (0-12); NEUTROPHILS % (AUTO) 63 % (42-75); PLATELET COUNT 181 10^3/uL (130-400); WHITE BLOOD COUNT 6.3 10^3/uL (4.3-11.0)
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
[2020-10-03 06:34] LABS: ALANINE AMINOTRANSFERASE 128 U/L (0-55); ALBUMIN 3.8 GM/DL (3.2-4.5); ALKALINE PHOSPHATASE 74 U/L (40-136); BILIRUBIN,TOTAL 0.6 MG/DL (0.1-1.0); BUN/CREATININE RATIO 15; CARBON DIOXIDE 26 MMOL/L (21-32); CHLORIDE 103 MMOL/L (98-107); CREATININE SERUM 0.82 MG/DL (0.60-1.30); GFR ESTIMATED > 60; GLUCOSE 90 MG/DL (70-105); POTASSIUM 3.6 MMOL/L (3.6-5.0); SODIUM 138 MMOL/L (135-145); TOTAL PROTEIN 6.6 GM/DL (6.4-8.2)
--- NOTE | 2020-10-03 10:54 | Physical Therapy Daily Note ---
PT Daily Note-Current Subjective Patient in bed pre tx, agrees to PT, has no complaints of pain, his sister is here for family training. Will be co-treating with OT due to poor patient mobility, right hemiparesis, the need to coordinate UE and LE during activity. Appearance Patient in WC post tx, will continue for a bit with OT Mental Status Patient Orientation: Person, Unable to Assess, Non-Verbal/Aphasic right leg brace Transfers SCALE: Activities may be completed with or without assistive devices. 0-Bfssxwkvyu-jsrtwgh completes the activity by him/herself with no assistance from a helper. 5-Set-up or Clean-up Assistance-helper sets up or cleans up; patient completes activity. [place] assists only prior to or following the activity. 4-Supervision or Touching Assistance-helper provides verbal cues and/or touching/steadying and/or contact guard assistance as patient completes activi ty. Assistance may be provided throughout the activity or intermittently. 3-Partial/Moderate Assistance-helper does LESS THAN HALF the effort. [place] lifts, holds or supports trunk or limbs, but provides less than half the effort. 2-Substantial/Maximal Assistance-helper does MORE THAN HALF the effort. [place] lifts or holds trunk or limbs and provides more than half the effort. 8-Hrzivumss-xlgdtv does ALL the effort. Patient does none of the effort to complete the activity. Or, the assistance of 2 or more helpers is required for the patient to complete the activity. If activity was not attempted, code reason: 7-Patient Refused. 9-Not Applicable-not attempted and the patient did not perform the activity before the current illness, exacerbation or injury. 10-Not Attempted due to Environmental Limitations-(lack of equipment, weather restraints, etc.). 88-Not Attempted due to Medical Conditions or Safety Concerns. Roll Left & Right (QC): 4 Sit to Lying (QC): 3 Lying to Sitting/Side of Bed(Q: 3 Sit to Stand (QC): 4 Chair/Ghy-ij-Acurs Xfer(QC): 3 Toilet Transfer (QC): 3 Min assist with right leg getting into and out of bed. Sister educated on supine to sit and transfers each way, he performs a stand pivot transfer to the left with CGA and to the right with min assist. Weight Bearing Right Lower Extremity: Right Weight Bearing/Tolerated Left Lower Extremity: Left Full Weight Bearing right leg brace to be on at all times, knee flexion limited to 90 degrees. Ok to begin WB on R on 09/29/20. Gait Training Distance: 6'x3 Gait Persons Needed: 1 Gait Assistive Device: Parallel Bars Min assist mostly to advance his right leg and for step sequence cues. Patient is able to bear some weight now on his right leg, his right knee does buckle on occasion but not completely. Patient's NWB on right leg is over now. Wheelchair Training Does the Pt Use a Wheelchair?: Yes Wheel 50 ft with 2 turns (QC): 4 Wheel 150 ft (QC): 4 Type of Wheelchair: Manual Exercises adjust brace on right leg while supine Treatments PT performed bed mobility and transfers, ambulation, WC mobility, OT performed UE positioning and safety during activity, dressing. Sister was educated by both OT and PT, PT discussed as well how he would position in bathroom to transfer to toilet. Assessment Current Status: Fair Progress Patient is now able to bear weight on right leg, started ambulation PT Short Term Goals Short Term Goals Time Frame: Sep 29, 2020 Roll Left & Right: 4 Sit to lyin Lying to sitting on side of be: 4 Sit to stand: 4 Chair/ymm-sa-bipvp transfer: 4 Wheel 50ft w/2 turns: 4 Wheel 150 feet: 4 PT Field Applications Specialist Goals Field Applications Specialist Goals PT Field Applications Specialist Goals Time Frame: Oct 13, 2020 Roll Left & Right (QC): 4 (SBA) Sit to Lying (QC): 4 (SBA) Lying-Sitting on Side/Bed(QC): 4 (SBA) Sit to Stand (QC): 4 (SBA) Chair/Fos-wm-Hxuxp Xfer(QC): 4 (SBA) Toilet Transfer (QC): 4 (SBA) Car Transfer (QC): 4 (SBA) Does the Patient Walk: No and Walking Goal NOT indicated Walk 10 feet (QC): 88 Walk 50ft with 2 Turns (QC): 88 Walk 150 ft (QC): 88 Walking 10ft on Uneven Surface: 88 1 Step (curb) (QC): 88 4 Steps (QC): 88 12 Steps (QC): 88 Picking up an Object (QC): 88 Wheel 50 feet with 2 turns (QC: 6 Wheel 150 feet: 6 PT Plan Problem List Problem List: Activity Tolerance, Functional Strength, Safety, Balance, Gait, Transfer, Bed Mobility, ROM Treatment/Plan Treatment Plan: Continue Plan of Care Treatment Plan: Bed Mobility, Education, Functional Activity Jeramy, Functional Strength, Group Therapy, Gait, Safety, Therapeutic Exercise, Transfers Treatment Duration: Oct 13, 2020 Frequency: At least 5 of 7 days/Wk (IRF) Estimated Hrs Per Day: 1.5 hours per day Patient and/or Family Agrees t: Yes Safety Risks/Education Patient Education: Gait Training, Transfer Techniques, Correct Positioning, W/C Management, Safety Issues Teaching Recipient: Patient, Family Teaching Methods: Demonstration, Discussion Response to Teaching: Reinforcement Needed Time/GCodes Time In: 0900 Time Out: 1000 Total Billed Treatment Time: 60 Total Billed Treatment 1 visit FA 60' co-treated with OT for 60' RACHEL LOPEZ PT Oct 03, 2020 10:54
[2020-10-03] MEDS: ONDANSETRON 4 MG (ZOFRAN) ORAL DISSOLVE TAB PO PRN ×2 (10:57→20:03)
--- NOTE | 2020-10-03 11:02 | NUR ---
Patient's medications given late due to NPO status for abdominal ultrasound this morning. Patient given a late breakfast after procedure and Zofran prior to other medications due to recent frequent nausea with medication.
[2020-10-03] MEDS: FLUoxetine HCL 20 MG (PROzac) CAP PO SCH (11:13)
[2020-10-03] MEDS: APIXABAN 5 MG (ELIQUIS) TABLET PO SCH ×2 (11:13→21:09)
[2020-10-03] MEDS: PANTOPRAZOLE 40 MG (PROTONIX) TAB PO SCH (11:13)
[2020-10-03] MEDS: LACOSAMIDE 100 MG PO SCH ×2 (11:14→21:08)
[2020-10-03] MEDS: VIMPAT 200 MG TABLET PO SCH ×2 (11:14→21:09)
--- NOTE | 2020-10-03 11:39 | Diagnostic Imaging Report ---
PROCEDURE: US Abdomen, limited. TECHNIQUE: Multiple realtime grayscale images were obtained over the abdomen in various projections. INDICATION: Elevated liver function tests. Liver is normal in size measuring 14 cm. No discrete liver mass is identified. The portal vein is patent and shows normal direction of flow. Gallbladder is surgically absent. There is no biliary ductal dilatation. Pancreas was obscured by bowel gas. Mid and distal aorta is normal caliber. Right kidney is without calculi or hydronephrosis. There is no ascites. IMPRESSION: Status post cholecystectomy. No acute feature is detected. Dictated by: Dictated on workstation # [id number]
--- NOTE | 2020-10-03 12:53 | Speech Therapy Daily Note ---
Speech Daily Progress Note Subjective Date Seen by Provider: Oct 03, 2020 Time Seen by Provider: 00:30 Patient was resting in his recliner with his friend and sister present. Family training for the patient's needs when he returns home completed. Objective Patient completed series of answering questions related to animals. If he was unable to say the word, he shell the picture of the animal or spelled it out with 50% given moderate verbal cues. Assessment Assessment Current Status: Fair Progress Treatment Plan Continue Plan of Care Speech Short Term Goals Short Term Goals Short Term Goals 1) Patient will tolerate least restrictive diet level without s/s of aspiration at 80% or greater with minimal cues. 2) Patient will utilize compensatory strategies as trained at 80% or greater with minima cues. 3) Patient will follow multi step commands with 90% or greater with minimal cues. 4) Patient will utilize communication board to assist with meeting wants/needs with moderate cue.s Speech Intermediate Goals Contract Technical Writer Goals Patient will maintain adequate nutrition/hydration via safe effective swallow function. Patient will participate in ongoing assessment for functional level of language abilities. Speech-Plan Patient/Family Goals Patient/Family Goals: Patient plans on returning home with family support for his daily needs. Treatment Plan Speech Therapy Treatment Plan: Continue Plan of Care Treatment Duration: Oct 12, 2020 Frequency: 4 times per week (Patient will receive skilled ST 4 to 5x per week) Estimated Hrs Per Day: .5 hour per day Rehab Potential: Good Barriers to Learning: Patient's expressive aphasia Pt/Family Agrees to Plan: Yes Safety Risks/Education Teaching Recipient: Patient, Family, Friend Teaching Methods: Demonstration, Discussion Response to Teaching: Verbalize Understanding, Return Demonstration Education Topics Provided: Continued safety, communication of wants and needs, continued safe oral intake Time Speech Therapy Time In: 10:30 Speech Therapy Time Out: 11:00 Total Billed Time: 30 Billed Treatment Time 1, SLTS, DYST DENISE Perdomo Oct 03, 2020 12:53
--- NOTE | 2020-10-03 13:19 | Physical Therapy Daily Note ---
PT Daily Note-Current Subjective Patient in recliner pre tx, agrees to PT, has no complaints of pain at rest. Appearance Patient in recliner post tx with nurse call, phone, tray, all needs met. Mental Status Patient Orientation: Person, Unable to Assess, Non-Verbal/Aphasic right leg brace Transfers SCALE: Activities may be completed with or without assistive devices. 3-Vrhjrcsbdq-wciifxe completes the activity by him/herself with no assistance from a helper. 5-Set-up or Clean-up Assistance-helper sets up or cleans up; patient completes activity. [place] assists only prior to or following the activity. 4-Supervision or Touching Assistance-helper provides verbal cues and/or touching/steadying and/or contact guard assistance as patient completes activity. Assistance may be provided throughout the activity or intermittently. 3-Partial/Moderate Assistance-helper does LESS THAN HALF the effort. [place] lifts, holds or supports trunk or limbs, but provides less than half the effort. 2-Substantial/Maximal Assistance-helper does MORE THAN HALF the effort. [place] lifts or holds trunk or limbs and provides more than half the effort. 9-Qttntsxmq-xkckgd does ALL the effort. Patient does none of the effort to complete the activity. Or, the assistance of 2 or more helpers is required for the patient to complete the activity. If activity was not attempted, code reason: 7-Patient Refused. 9-Not Applicable-not attempted and the patient did not perform the activity before the current illness, exacerbation or injury. 10-Not Attempted due to Environmental Limitations-(lack of equipment, weather restraints, etc.). 88-Not Attempted due to Medical Conditions or Safety Concerns. Weight Bearing Right Lower Extremity: Right Weight Bearing/Tolerated Left Lower Extremity: Left Full Weight Bearing right leg brace to be on at all times, knee flexion limited to 90 degrees. Ok to begin WB on R on 09/29/20. Exercises RLE PROM/stretching in all planes except knee flexion which is limited to 90 degrees, attempted quad sets but patient is not able to illicit a contraction at this time Treatments ROM Assessment Current Status: Fair Progress maintaining functional ROM PT Short Term Goals Short Term Goals Time Frame: Sep 29, 2020 Roll Left & Right: 4 Sit to lyin Lying to sitting on side of be: 4 Sit to stand: 4 Chair/mpk-jj-xyykb transfer: 4 Wheel 50ft w/2 turns: 4 Wheel 150 feet: 4 PT Custodial Goals Custodial Goals PT Clinical Application Specialist Goals Time Frame: Oct 13, 2020 Roll Left & Right (QC): 4 (SBA) Sit to Lying (QC): 4 (SBA) Lying-Sitting on Side/Bed(QC): 4 (SBA) Sit to Stand (QC): 4 (SBA) Chair/Szz-dq-Frtcz Xfer(QC): 4 (SBA) Toilet Transfer (QC): 4 (SBA) Car Transfer (QC): 4 (SBA) Does the Patient Walk: No and Walking Goal NOT indicated Walk 10 feet (QC): 88 Walk 50ft with 2 Turns (QC): 88 Walk 150 ft (QC): 88 Walking 10ft on Uneven Surface: 88 1 Step (curb) (QC): 88 4 Steps (QC): 88 12 Steps (QC): 88 Picking up an Object (QC): 88 Wheel 50 feet with 2 turns (QC: 6 Wheel 150 feet: 6 PT Plan Problem List Problem List: Activity Tolerance, Functional Strength, Safety, Balance, Gait, Transfer, Bed Mobility, ROM Treatment/Plan Treatment Plan: Continue Plan of Care Treatment Plan: Bed Mobility, Education, Functional Activity Jeramy, Functional Strength, Group Therapy, Gait, Safety, Therapeutic Exercise, Transfers Treatment Duration: Oct 13, 2020 Frequency: At least 5 of 7 days/Wk (IRF) Estimated Hrs Per Day: 1.5 hours per day Patient and/or Family Agrees t: Yes Safety Risks/Education Patient Education: Correct Positioning, Safety Issues Teaching Recipient: Patient Teaching Methods: Demonstration, Discussion Response to Teaching: Reinforcement Needed Time/GCodes Time In: 1300 Time Out: 1315 Total Billed Treatment Time: 15 Total Billed Treatment 1 visit EX 15RACHEL SANCHEZ PT Oct 03, 2020 13:19
--- NOTE | 2020-10-03 13:57 | NUR ---
CM/SS CONCURRENT DOCUMENTATION Patient's sister Ana and SO/Marry here this a.m. as planned for education/demonstration/training. Visited with all in patient's room after therapy sessions, answered their questions to their satisfaction. BARRIERS TO DISCHARGE: Will need a ramp. They are in the process of arranging to have one built. After discussion about potential (but unconfirmed) timelines, encouraged them to move forward on the ramp since that will definitely be needed as part of accessing his home. Ana and Marry both agreed they would move forward on getting it done this week. Caregivers will need to be available to patient at all times. Ana and Marry both indicated that would not be an issue. Patient has another sister who is moving back to this area in order to participate with other designated persons to help. DME: Will need FWW and wheelchair. Family are moving forward to get grab bars in the bathroom and discussed tub safety options with therapy staff. All of those items are private pay. If [place] Medicaid will only pay for one assistive device, they request they pay for the walker and have wheelchair under Medicaid funding. Ana stated they would need a 48 hour notice regarding discharge. She has also requested that there be another family/caregiver session prior to discharge, this will be determined after the Patient Care Conference and proposed target discharge date is known. [facility]: They have requested [facility]; however, [facility] does not have OT staff. Explained there are about 6 agencies in patient's service area, it will depend on whether they accept [place] Medicaid only, and that staffing and scheduling work for patient's timelines. Continue intermittent review.
--- NOTE | 2020-10-03 14:29 | Occupational Ther Daily Note ---
OT Current Status-Daily Note Subjective No pain reported. Mental Status/Objective Patient Orientation: Person ADL-Treatment Therapy Code Descriptions/Definitions Functional [place] Measure: 0=Not Assessed/NA 4=Minimal Assistance 1=Total Assistance 5=Supervision or Setup 2=Maximal Assistance 6=Modified [place] 3=Moderate Assistance 7=Complete IndependenceSCALE: Activities may be completed with or without assistive devices. 3-Lahvwigdpt-vjwkwop completes the activity by him/herself with no assistance from a helper. 5-Set-up or Clean-up Assistance-helper sets up or cleans up; patient completes activity. [place] assists only prior to or following the activity. 4-Supervision or Touching Assistance-helper provides verbal cues and/or touching/steadying and/or contact guard assistance as patient completes activity. Assistance may be provided throughout the activity or intermittently. 3-Partial/Moderate Assistance-helper does LESS THAN HALF the effort. [place] lifts, holds or supports trunk or limbs, but provides less than half the effort. 2-Substantial/Maximal Assistance-helper does MORE THAN HALF the effort. [place] lifts or holds trunk or limbs and provides more than half the effort. 6-Ihdpjkkyj-fvhaff does ALL the effort. Patient does none of the effort to complete the activity. Or, the assistance of 2 or more helpers is required for the patient to complete the activity. If activity was not attempted, code reason: 7-Patient Refused. 9-Not Applicable-not attempted and the patient did not perform the activity before the current illness, exacerbation or injury. 10-Not Attempted due to Environmental Limitations-(lack of equipment, weather restraints, etc.). 88-Not Attempted due to Medical Conditions or Safety Concerns. Upper Body Dressing (QC): 4 (SBA to don shirt.) Other Treatment PT/OT co-treated this date with pt. due to having family training before discharge in future. Pt's sister and friend were present. OT educated them on current abilities with ADLs, while OT facilitated pt's abilities with transfers. Family educated in functional transfers, and pt. able to ambulate x 3 times in parallel bars with mod assistance and increased weight bearing through right LE. Family is also educated in right UE PROM techniques, and reason for using arm sling. OT also went over visual issues, possible need for eye patch if pt. will tolerate, and current abilities regarding text. Family has questions about home set up, including doorway widths, bathroom set up and grab bar needs, as well as has his bedroom and what he will need for home. OT and PT went over pt's current equipment use, and estimated needs for home. Will let administrator social welfare know these possible needs once family decides on set up they would like to go with. At end of session, pt. up in reclining chair with all needs met. food counter worker in room with family. Education OT Patient Education: Correct positioning, Exercise program, Modified ADL techniques, Progress toward Goal/Update tx plan, Purpose of tx/functional activities, Reviewed precautions, Rehab process, Transfer techniques Teaching Recipient: Patient Teaching Methods: Demonstration, Discussion Response to Teaching: Verbalize Understanding, Return Demonstration, Reinforce ment Needed OT Short Term Goals Short Term Goals Time Frame: Oct 06, 2020 Eatin Oral hygiene: 3 Toileting hygiene: 3 Shower/bathe self: 3 Upper body dressin Lower body dressin Putting on/taking off footwear: 3 OT Mcfp Goals Ultra Sound Technician Goals Time Frame: Oct 20, 2020 Eating (QC): 6 Oral Hygiene (QC): 6 Toileting Hygiene (QC): 4 Shower/Bathe Self (QC): 4 Upper Body Dressing (QC): 5 Lower Body Dressing (QC): 4 On/Off Footwear (QC): 4 Additional Goals: 1-Demonstrate ADL Tasks, 2-Verbalize Understanding, 3- ImproveStrength/Jeramy 1=Demonstrate adherence to instructed precautions during ADL tasks. 2=Patient will verbalize/demonstrate understanding of assistive devices/modifications for ADL. 3=Patient will improve strength/tolerance for activity to enable patient to perform ADL's. OT Education/Plan Problem List/Assessment Assessment: Decreased Activ Tolerance, Decreased UE Strength, Dependent Transfers, Impaired Bed Mobility, Impaired Cognition, Impaired Coordination, Impaired Funct Balance, Impaired I ADL's, Impaired Self-Care Skills, Restricted Funct UE ROM, Visual-Perceptual Deficit Discharge Recommendations Plan/Recommendations: Continue POC Therapy Discharge Recommendati: 24 Hour Supervision, Post Acute OT Comment Equipment needs still to be determined. Treatment Plan/Plan of Care Treatment,Training & Education: Yes Patient would benefit from OT for education, treatment and training to promote independence in ADL's, mobility, safety and/or upper extremity function for ADL's. Plan of Care: ADL Retraining, Functional Mobility, UE Funct Exercise/Act, UE Neuromus Re-Ed/Coord Treatment Duration: Oct 20, 2020 Frequency: At least 5 of 7 days/Wk (IRF) Estimated Hrs Per Day: 1.5 hours per day Agreement: Yes Rehab Potential: Good Time/GCodes Start Time: 09:00 Stop Time: 10:00 Total Time Billed (hr/min): 60 Billed Treatment Time 1, FA x 4 Co-treatment with PT. Please see above note for designated roles. AMISH ROBERTO OT Oct 03, 2020 14:29
--- NOTE | 2020-10-03 14:37 | Occupational Ther Daily Note ---
OT Current Status-Daily Note Subjective Pt. on toilet. Reports that he is done. Mental Status/Objective Patient Orientation: Person ADL-Treatment Therapy Code Descriptions/Definitions Functional [place] Measure: 0=Not Assessed/NA 4=Minimal Assistance 1=Total Assistance 5=Supervision or Setup 2=Maximal Assistance 6=Modified [place] 3=Moderate Assistance 7=Complete IndependenceSCALE: Activities may be completed with or without assistive devices. 0-Nylytcgksa-ssexasn completes the activity by him/herself with no assistance from a helper. 5-Set-up or Clean-up Assistance-helper sets up or cleans up; patient completes activity. [place] assists only prior to or following the activity. 4-Supervision or Touching Assistance-helper provides verbal cues and/or touching/steadying and/or contact guard assistance as patient completes activity. Assistance may be provided throughout the activity or intermittently. 3-Partial/Moderate Assistance-helper does LESS THAN HALF the effort. [place] lifts, holds or supports trunk or limbs, but provides less than half the effort. 2-Substantial/Maximal Assistance-helper does MORE THAN HALF the effort. [place] lifts or holds trunk or limbs and provides more than half the effort. 9-Iunucaxgn-ngtrhd does ALL the effort. Patient does none of the effort to complete the activity. Or, the assistance of 2 or more helpers is required for the patient to complete the activity. If activity was not attempted, code reason: 7-Patient Refused. 9-Not Applicable-not attempted and the patient did not perform the activity before the current illness, exacerbation or injury. 10-Not Attempted due to Environmental Limitations-(lack of equipment, weather restraints, etc.). 88-Not Attempted due to Medical Conditions or Safety Concerns. Lower Body Dressing (QC): 2 Toileting Hygiene (QC): 2 Toilet Transfer (QC): 3 (Mod assistance.) Other Treatment Pt. up on toilet. He had bowel movement in toilet, and was incontinent of urine all over floor due to poor positioning. OT cleansed floor and then assisted with donning fresh shorts. Pt. stood at toilet while holding onto arm rest on left side. Required max assistance to cleanse abi area. OT pulled up shorts but pt. is able to assist. Transferred to wheelchair with mod assistance, and able to take self to sink to wash left hand. After this, pt. and OT went to therapy laundry area with pt's dirty clothing. OT started washing machine for pt, but pt. able to observe and retrieve clean clothes that were his on windowsill. Pt. taken back to room. Transferred to bed with min assist, and then sit-supine with mod assist for positioning of right LE. Pt. educated in techniques to pull self up in bed. All needs met. Education OT Patient Education: Correct positioning, Modified ADL techniques, Progress toward Goal/Update tx plan, Purpose of tx/functional activities, Reviewed precautions, Rehab process, Transfer techniques Teaching Recipient: Patient Teaching Methods: Demonstration, Discussion Response to Teaching: Verbalize Understanding, Return Demonstration, Reinforc ement Needed OT Short Term Goals Short Term Goals Time Frame: Oct 06, 2020 Eatin Oral hygiene: 3 Toileting hygiene: 3 Shower/bathe self: 3 Upper body dressin Lower body dressin Putting on/taking off footwear: 3 OT Audit Director Goals [facility] Goals Time Frame: Oct 20, 2020 Eating (QC): 6 Oral Hygiene (QC): 6 Toileting Hygiene (QC): 4 Shower/Bathe Self (QC): 4 Upper Body Dressing (QC): 5 Lower Body Dressing (QC): 4 On/Off Footwear (QC): 4 Additional Goals: 1-Demonstrate ADL Tasks, 2-Verbalize Understanding, 3- ImproveStrength/Jeramy 1=Demonstrate adherence to instructed precautions during ADL tasks. 2=Patient will verbalize/demonstrate understanding of assistive devices/modifications for ADL. 3=Patient will improve strength/tolerance for activity to enable patient to perform ADL's. OT Education/Plan Problem List/Assessment Assessment: Decreased Activ Tolerance, Decreased UE Strength, Dependent Transfers, Impaired Bed Mobility, Impaired Cognition, Impaired Coordination, Impaired Funct Balance, Impaired I ADL's, Impaired Self-Care Skills, Restricted Funct UE ROM, Visual-Perceptual Deficit Discharge Recommendations Plan/Recommendations: Continue POC Therapy Discharge Recommendati: Home & Family, Post Acute OT Treatment Plan/Plan of Care Treatment,Training & Education: Yes Patient would benefit from OT for education, treatment and training to promote independence in ADL's, mobility, safety and/or upper extremity function for ADL's. Plan of Care: ADL Retraining, Functional Mobility, UE Funct Exercise/Act, UE Neuromus Re-Ed/Coord Treatment Duration: Oct 20, 2020 Frequency: At least 5 of 7 days/Wk (IRF) Estimated Hrs Per Day: 1.5 hours per day Agreement: Yes Rehab Potential: Good Time/GCodes Start Time: 13:30 Stop Time: 13:45 Total Time Billed (hr/min): 15 Billed Treatment Time 1, ADL AMISH ROBERTO OT Oct 03, 2020 14:37
--- NOTE | 2020-10-03 17:40 | NUR ---
"RD ASSESSMENT PMHx: TBI; seizure disorder; stroke; PT INTERACTION: Pt was awake and pleasant during nutrition follow-up. Pt states he has been eating alright since last assessment. Note avg PO intke 50-75% meals, per chart review. Pt states some issues with nausea, vomiting, constipation, and diarrhea since last assessment. Note episode of emesis on 10/03, per chart review. Note last BM was 10/02, and pt currently on bowel regimen of colace PRN, senna PRN, and miralax PRN, per chart review. ABNORMAL NUTRITION-RELATED LAB VALUES LOW: HIGH: AST 42; ALT 128 Est. kcal needs: 5109-3313 kcal | 15-18 kcal/kg Est. Pro needs: 94-117 g Pro | 0.8-1.0 g Pro/kg PES STATEMENT: Inadequate oral intake (NI-2.1) related to loss of appetite, nausea, vomiting, constipation, and diarrhea, as evidenced by pt interview, chart review, and avg PO intake 50-75% meals. INTERVENTION: Continue with current diet order of DYS2 Mechanically Altered diet, with modifier of [place] Thick Liquids. Encouraged pt to eat when able. Pt may benefit from nutrition supplementation if PO intake declines. Will continue to follow and reassess as pt needs, intake, and status change. Freedom BAEZA, MS RD LD [phone] cell"
[2020-10-03 17:46] VITALS: BP 116/69
--- NOTE | 2020-10-03 19:09 | NUR ---
Bedside report received from CRISTIAN HOANG, assume care of pt
--- NOTE | 2020-10-03 19:48 | NUR ---
Discussed with pt giving Zofran 1 hr prior to all this nighttime meds pt agreed
--- NOTE | 2020-10-03 20:03 | NUR ---
Zofran 4mg sl given
--- NOTE | 2020-10-03 21:03 | NUR ---
no nausea all pts nighttime meds given with applesauce
[2020-10-03] MEDS: ZONISAMIDE 100 MG CAP (ZONEGRAN) NON-FORMULARY PO SCH (21:08)
[2020-10-03] MEDS: DOXYCYCLINE 100 MG (VIBRAMYCIN) TABLET PO SCH (21:09)
[2020-10-04 00:48] LABS: HEPATITIS C ANTIBODY C Non-Reactive (Non-Reactive)
[2020-10-04 05:24] VITALS: BP 111/72
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
[2020-10-04] MEDS: ONDANSETRON 4 MG (ZOFRAN) ORAL DISSOLVE TAB PO PRN ×2 (07:48→19:54)
[2020-10-04] MEDS: FLUoxetine HCL 20 MG (PROzac) CAP PO SCH (08:21)
[2020-10-04] MEDS: APIXABAN 5 MG (ELIQUIS) TABLET PO SCH ×2 (08:21→20:40)
[2020-10-04] MEDS: PANTOPRAZOLE 40 MG (PROTONIX) TAB PO SCH (08:21)
[2020-10-04] MEDS: VIMPAT 200 MG TABLET PO SCH ×2 (08:22→20:38)
[2020-10-04] MEDS: LACOSAMIDE 100 MG PO SCH ×2 (08:22→20:38)
--- NOTE | 2020-10-04 08:55 | Physical Therapy Daily Note ---
PT Daily Note-Current Subjective Patient in bed pre tx, agrees to PT, has no complaints of pain. Appearance Patient in WC post tx, has nurse call, phone, tray, all needs met. Mental Status Patient Orientation: Person, Unable to Assess, Non-Verbal/Aphasic right leg brace Transfers SCALE: Activities may be completed with or without assistive devices. 1-Vbxmpvzkcs-vxmufkl completes the activity by him/herself with no assistance from a helper. 5-Set-up or Clean-up Assistance-helper sets up or cleans up; patient completes activity. [place] assists only prior to or following the activity. 4-Supervision or Touching Assistance-helper provides verbal cues and/or touching/steadying and/or contact guard assistance as patient completes activity. Assistance may be provided throughout the activity or intermittently. 3-Partial/Moderate Assistance-helper does LESS THAN HALF the effort. [place] lifts, holds or supports trunk or limbs, but provides less than half the effort. 2-Substantial/Maximal Assistance-helper does MORE THAN HALF the effort. [place] lifts or holds trunk or limbs and provides more than half the effort. 3-Rkfuinbmc-nigesn does ALL the effort. Patient does none of the effort to complete the activity. Or, the assistance of 2 or more helpers is required for the patient to complete the activity. If activity was not attempted, code reason: 7-Patient Refused. 9-Not Applicable-not attempted and the patient did not perform the activity before the current illness, exacerbation or injury. 10-Not Attempted due to Environmental Limitations-(lack of equipment, weather restraints, etc.). 88-Not Attempted due to Medical Conditions or Safety Concerns. Roll Left & Right (QC): 4 Lying to Sitting/Side of Bed(Q: 3 Sit to Stand (QC): 4 Chair/Cpf-kb-Tqqtk Xfer(QC): 4 cues for safety and hand placement when transferring to the right side Weight Bearing Right Lower Extremity: Right Weight Bearing/Tolerated Left Lower Extremity: Left Full Weight Bearing right leg brace to be on at all times, knee flexion limited to 90 degrees. Ok to begin WB on R on 09/29/20. Wheelchair Training Does the Pt Use a Wheelchair?: Yes Wheel 50 ft with 2 turns (QC): 4 Type of Wheelchair: Manual Exercises NuStep Minutes: 15 NuStep Workload: 4 Treatments bed mobility and transfers, LE strengthening Assessment Current Status: Fair Progress slowly improving transfers PT Short Term Goals Short Term Goals Time Frame: Sep 29, 2020 Roll Left & Right: 4 Sit to lyin Lying to sitting on side of be: 4 Sit to stand: 4 Chair/ywe-hf-joljg transfer: 4 Wheel 50ft w/2 turns: 4 Wheel 150 feet: 4 PT Senior Care Goals Senior Care Goals PT Senior Care Goals Time Frame: Oct 13, 2020 Roll Left & Right (QC): 4 (SBA) Sit to Lying (QC): 4 (SBA) Lying-Sitting on Side/Bed(QC): 4 (SBA) Sit to Stand (QC): 4 (SBA) Chair/Aqq-kq-Iprof Xfer(QC): 4 (SBA) Toilet Transfer (QC): 4 (SBA) Car Transfer (QC): 4 (SBA) Does the Patient Walk: No and Walking Goal NOT indicated Walk 10 feet (QC): 88 Walk 50ft with 2 Turns (QC): 88 Walk 150 ft (QC): 88 Walking 10ft on Uneven Surface: 88 1 Step (curb) (QC): 88 4 Steps (QC): 88 12 Steps (QC): 88 Picking up an Object (QC): 88 Wheel 50 feet with 2 turns (QC: 6 Wheel 150 feet: 6 PT Plan Problem List Problem List: Activity Tolerance, Functional Strength, Safety, Balance, Gait, Transfer, Bed Mobility, ROM Treatment/Plan Treatment Plan: Continue Plan of Care Treatment Plan: Bed Mobility, Education, Functional Activity Jeramy, Functional Strength, Group Therapy, Gait, Safety, Therapeutic Exercise, Transfers Treatment Duration: Oct 13, 2020 Frequency: At least 5 of 7 days/Wk (IRF) Estimated Hrs Per Day: 1.5 hours per day Patient and/or Family Agrees t: Yes Safety Risks/Education Patient Education: Transfer Techniques, Correct Positioning, W/C Management, Safety Issues Teaching Recipient: Patient Teaching Methods: Demonstration, Discussion Response to Teaching: Reinforcement Needed Time/GCodes Time In: 0830 Time Out: 0900 Total Billed Treatment Time: 30 Total Billed Treatment 1 visit EX 15' FA 15' RACHEL LOPEZ PT Oct 04, 2020 08:55
--- NOTE | 2020-10-04 11:00 | NUR ---
Patient assisted with shaving per OT. Patient had two places on his chin where his skin was nicked by the razor. Patient is on Eliquis and took some time to stop bleeding. Staff and patient advised to not use razor, rather use an electric razor.
--- NOTE | 2020-10-04 12:40 | Occupational Ther Daily Note ---
OT Current Status-Daily Note Subjective Pt seen in room, up in w/c, agreeable to OT. No pain mentioned. Appearance Alert, cooperative ADL-Treatment Pt wanted to shave and propelled self to bathroom, with a little help positioning w/c at sink. He was able to apply soap to shave and shaved lip and chin. He nicked a couple small spots on chin and OT completed shaving. He stated that this was not the first time he'd shaved while here. Nursing assisted with controlling bleeding. Recommend use of electric razer. Therapy Code Descriptions/Definitions Functional [place] Measure: 0=Not Assessed/NA 4=Minimal Assistance 1=Total Assistance 5=Supervision or Setup 2=Maximal Assistance 6=Modified [place] 3=Moderate Assistance 7=Complete IndependenceSCALE: Activities may be completed with or without assistive devices. 5-Qctbthxiom-loktcgy completes the activity by him/herself with no assistance from a helper. 5-Set-up or Clean-up Assistance-helper sets up or cleans up; patient completes activity. [place] assists only prior to or following the activity. 4-Supervision or Touching Assistance-helper provides verbal cues and/or touching/steadying and/or contact guard assistance as patient completes activity. Assistance may be provided throughout the activity or intermittently. 3-Partial/Moderate Assistance-helper does LESS THAN HALF the effort. [place] lifts, holds or supports trunk or limbs, but provides less than half the effort. 2-Substantial/Maximal Assistance-helper does MORE THAN HALF the effort. [place] lifts or holds trunk or limbs and provides more than half the effort. 9-Xulrdlycu-zntoqg does ALL the effort. Patient does none of the effort to complete the activity. Or, the assistance of 2 or more helpers is required for the patient to complete the activity. If activity was not attempted, code reason: 7-Patient Refused. 9-Not Applicable-not attempted and the patient did not perform the activity before the current illness, exacerbation or injury. 10-Not Attempted due to Environmental Limitations-(lack of equipment, weather restraints, etc.). 88-Not Attempted due to Medical Conditions or Safety Concerns. Other Treatment OT with pt education on facilitation techniques used with R UE. Some spasticity noted with quick stretch with R wrist. Pt demonstrated slight movement with shoulder elevation and retraction on R, with facilitation. PROM to R UE with joint compression and weight bearing. Trace finger flexion observed with facilitation. Worked with skate board and other facilitation techniques for R shoulder, elbow, forearm, wrist and fingers, with no other movement observed. Pt returned to room and transferred CGA to L side to recliner. Pt left up in recliner, all needs met, R arm supported on pillow. Education OT Patient Education: Correct positioning, Progress toward Goal/Update tx plan, Purpose of tx/functional activities, Other (facilitation techniques) Teaching Recipient: Patient Teaching Methods: Demonstration, Discussion Response to Teaching: Verbalize Understanding OT Short Term Goals Short Term Goals Time Frame: Oct 06, 2020 Eatin Oral hygiene: 3 Toileting hygiene: 3 Shower/bathe self: 3 Upper body dressin Lower body dressin Putting on/taking off footwear: 3 OT Skilled Nursing Goals Skilled Nursing Goals Time Frame: Oct 20, 2020 Eating (QC): 6 Oral Hygiene (QC): 6 Toileting Hygiene (QC): 4 Shower/Bathe Self (QC): 4 Upper Body Dressing (QC): 5 Lower Body Dressing (QC): 4 On/Off Footwear (QC): 4 Additional Goals: 1-Demonstrate ADL Tasks, 2-Verbalize Understanding, 3- ImproveStrength/Jeramy 1=Demonstrate adherence to instructed precautions during ADL tasks. 2=Patient will verbalize/demonstrate understanding of assistive devices/modifications for ADL. 3=Patient will improve strength/tolerance for activity to enable patient to perform ADL's. OT Education/Plan Discharge Recommendations Plan/Recommendations: Continue POC Treatment Plan/Plan of Care Patient would benefit from OT for education, treatment and training to promote independence in ADL's, mobility, safety and/or upper extremity function for ADL's. Plan of Care: ADL Retraining, Functional Mobility, UE Funct Exercise/Act, UE Neuromus Re-Ed/Coord Treatment Duration: Oct 20, 2020 Frequency: At least 5 of 7 days/Wk (IRF) Estimated Hrs Per Day: 1.5 hours per day Agreement: Yes Rehab Potential: Good Time/GCodes Start Time: 09:45 Stop Time: 11:00 Total Time Billed (hr/min): 75 Billed Treatment Time visit, ADL 15 minutes, neuromotor 60 minutes ELLIE WAKEFIELD OT Oct 04, 2020 12:40
--- NOTE | 2020-10-04 13:25 | Speech Therapy Daily Note ---
Speech Daily Progress Note Subjective Date Seen by Provider: Oct 04, 2020 Time Seen by Provider: 00:30 Patient sitting up in his wc following his PT session. Patient was alert and participated well. Objective Patient answered yes/no questions with 80% given minimal cues. Patient answered general info questions with 25% using verbal and written answers with mod cues. Assessment Assessment Current Status: Fair Progress Treatment Plan Continue Plan of Care Speech Short Term Goals Short Term Goals Short Term Goals 1) Patient will tolerate least restrictive diet level without s/s of aspiration at 80% or greater with minimal cues. 2) Patient will utilize compensatory strategies as trained at 80% or greater with minima cues. 3) Patient will follow multi step commands with 90% or greater with minimal cues. 4) Patient will utilize communication board to assist with meeting wants/needs with moderate cue.s Speech Rd Project Manager Goals Detention Goals Patient will maintain adequate nutrition/hydration via safe effective swallow function. Patient will participate in ongoing assessment for functional level of language abilities. Speech-Plan Patient/Family Goals Patient/Family Goals: Patient plans on returning to his home where he will have family and friends assistance for his daily needs. Treatment Plan Speech Therapy Treatment Plan: Continue Plan of Care Treatment Duration: Oct 12, 2020 Frequency: 4 times per week (Patient will receive skilled ST 4 to 5x per week) Estimated Hrs Per Day: .5 hour per day Rehab Potential: Good Barriers to Learning: Patient's CVA with expressive aphasia Pt/Family Agrees to Plan: Yes Safety Risks/Education Teaching Recipient: Patient Teaching Methods: Demonstration, Discussion Response to Teaching: Verbalize Understanding, Return Demonstration Education Topics Provided: Continued safety with oral intake, continued communication with various means Time Speech Therapy Time In: 09:00 Speech Therapy Time Out: 09:30 Total Billed Time: 30 Billed Treatment Time 1, SLTS, DYST DENISE Perdomo Oct 04, 2020 13:25
--- NOTE | 2020-10-04 14:57 | Physical Therapy Daily Note ---
PT Daily Note-Current Subjective Patient in recliner pre tx, agrees to PT, has no complaints of pain. Appearance Patient in bed post tx with nurse call, phone, tray, all needs met. Mental Status Patient Orientation: Person, Unable to Assess, Non-Verbal/Aphasic right leg brace Transfers SCALE: Activities may be completed with or without assistive devices. 8-Dqrywttkfd-eukrunq completes the activity by him/herself with no assistance from a helper. 5-Set-up or Clean-up Assistance-helper sets up or cleans up; patient completes activity. [place] assists only prior to or following the activity. 4-Supervision or Touching Assistance-helper provides verbal cues and/or touching/steadying and/or contact guard assistance as patient completes activity. Assistance may be provided throughout the activity or intermittently. 3-Partial/Moderate Assistance-helper does LESS THAN HALF the effort. [place] lifts, holds or supports trunk or limbs, but provides less than half the effort. 2-Substantial/Maximal Assistance-helper does MORE THAN HALF the effort. [place] lifts or holds trunk or limbs and provides more than half the effort. 6-Zgqblqlzk-ndgwkz does ALL the effort. Patient does none of the effort to complete the activity. Or, the assistance of 2 or more helpers is required for the patient to complete the activity. If activity was not attempted, code reason: 7-Patient Refused. 9-Not Applicable-not attempted and the patient did not perform the activity before the current illness, exacerbation or injury. 10-Not Attempted due to Environmental Limitations-(lack of equipment, weather restraints, etc.). 88-Not Attempted due to Medical Conditions or Safety Concerns. Roll Left & Right (QC): 4 Sit to Lying (QC): 3 Sit to Stand (QC): 4 Chair/Fst-dr-Vaije Xfer(QC): 4 Weight Bearing Right Lower Extremity: Right Weight Bearing/Tolerated Left Lower Extremity: Left Full Weight Bearing right leg brace to be on at all times, knee flexion limited to 90 degrees. Ok to begin WB on R on 09/29/20. Gait Training Distance: 6'x6 Gait Persons Needed: 1 Gait Assistive Device: Parallel Bars WC follow, needs assist advancing his right leg Wheelchair Training Does the Pt Use a Wheelchair?: Yes Wheel 50 ft with 2 turns (QC): 4 Type of Wheelchair: Manual 120'x2 Treatments bed mobility and transfers, ambulation, WC mobility Assessment Current Status: Fair Progress rest breaks between ambulation PT Short Term Goals Short Term Goals Time Frame: Sep 29, 2020 Roll Left & Right: 4 Sit to lyin Lying to sitting on side of be: 4 Sit to stand: 4 Chair/bya-ma-ezslr transfer: 4 Wheel 50ft w/2 turns: 4 Wheel 150 feet: 4 PT Box Car Loader Goals Longterm Goals PT Box Car Loader Goals Time Frame: Oct 13, 2020 Roll Left & Right (QC): 4 (SBA) Sit to Lying (QC): 4 (SBA) Lying-Sitting on Side/Bed(QC): 4 (SBA) Sit to Stand (QC): 4 (SBA) Chair/Xmi-tk-Eeunk Xfer(QC): 4 (SBA) Toilet Transfer (QC): 4 (SBA) Car Transfer (QC): 4 (SBA) Does the Patient Walk: No and Walking Goal NOT indicated Walk 10 feet (QC): 88 Walk 50ft with 2 Turns (QC): 88 Walk 150 ft (QC): 88 Walking 10ft on Uneven Surface: 88 1 Step (curb) (QC): 88 4 Steps (QC): 88 12 Steps (QC): 88 Picking up an Object (QC): 88 Wheel 50 feet with 2 turns (QC: 6 Wheel 150 feet: 6 PT Plan Problem List Problem List: Activity Tolerance, Functional Strength, Safety, Balance, Gait, Transfer, Bed Mobility, ROM Treatment/Plan Treatment Plan: Continue Plan of Care Treatment Plan: Bed Mobility, Education, Functional Activity Jeramy, Functional Strength, Group Therapy, Gait, Safety, Therapeutic Exercise, Transfers Treatment Duration: Oct 13, 2020 Frequency: At least 5 of 7 days/Wk (IRF) Estimated Hrs Per Day: 1.5 hours per day Patient and/or Family Agrees t: Yes Safety Risks/Education Patient Education: Gait Training, Transfer Techniques, Correct Positioning, W/C Management, Safety Issues Teaching Recipient: Patient Teaching Methods: Demonstration, Discussion Response to Teaching: Reinforcement Needed Time/GCodes Time In: 1350 Time Out: 1435 Total Billed Treatment Time: 45 Total Billed Treatment 1 visit GT 30' FA 15' RACHEL LOPEZ PT Oct 04, 2020 14:57
[2020-10-04 16:47] VITALS: BP 117/78
[2020-10-04] MEDS: ZONISAMIDE 100 MG CAP (ZONEGRAN) NON-FORMULARY PO SCH (20:39)
[2020-10-04] MEDS: DOXYCYCLINE 100 MG (VIBRAMYCIN) TABLET PO SCH (20:40)
[2020-10-05 05:30] VITALS: BP 101/68
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
[2020-10-05] MEDS: ONDANSETRON 4 MG (ZOFRAN) ORAL DISSOLVE TAB PO PRN ×2 (08:20→20:13)
[2020-10-05] MEDS: FLUoxetine HCL 20 MG (PROzac) CAP PO SCH (08:52)
[2020-10-05] MEDS: VIMPAT 200 MG TABLET PO SCH ×2 (08:52→21:36)
[2020-10-05] MEDS: APIXABAN 5 MG (ELIQUIS) TABLET PO SCH ×2 (08:52→21:35)
[2020-10-05] MEDS: PANTOPRAZOLE 40 MG (PROTONIX) TAB PO SCH (08:53)
[2020-10-05] MEDS: LACOSAMIDE 100 MG PO SCH ×2 (08:53→21:36)
--- NOTE | 2020-10-05 09:15 | NUR ---
Sister called and states patient is ready to try eye patch again for blurry vision in both eyes, also requests speech therapy repeat swallow study - speech therapy notified and will repeat in AM. Patient noted to have poor appetite, patient admits to not liking hospital food and current dysphagia diet. Being medicated with Zofran AC medications for N/V.
--- NOTE | 2020-10-05 10:04 | Physical Therapy Daily Note ---
PT Daily Note-Current Subjective Pt. in bed still sleepy but agrees to Rx, speaking and responding much better this date . Pt. states he does not have any pain but "something feels weird " in his right leg Pain Location: No Pain Reported Mental Status Patient Orientation: Non-Verbal/Aphasic Attachments: Other-See Comments (knee immob RLE) Transfers SCALE: Activities may be completed with or without assistive devices. 9-Kwjhqdymxc-ryhqryc completes the activity by him/herself with no assistance from a helper. 5-Set-up or Clean-up Assistance-helper sets up or cleans up; patient completes activity. [place] assists only prior to or following the activity. 4-Supervision or Touching Assistance-helper provides verbal cues and/or touching/steadying and/or contact guard assistance as patient completes activity. Assistance may be provided throughout the activity or intermittently. 3-Partial/Moderate Assistance-helper does LESS THAN HALF the effort. [place] lifts, holds or supports trunk or limbs, but provides less than half the effort. 2-Substantial/Maximal Assistance-helper does MORE THAN HALF the effort. [place] lifts or holds trunk or limbs and provides more than half the effort. 9-Pfmwuvecn-uhxzcm does ALL the effort. Patient does none of the effort to complete the activity. Or, the assistance of 2 or more helpers is required for the patient to complete the activity. If activity was not attempted, code reason: 7-Patient Refused. 9-Not Applicable-not attempted and the patient did not perform the activity before the current illness, exacerbation or injury. 10-Not Attempted due to Environmental Limitations-(lack of equipment, weather restraints, etc.). 88-Not Attempted due to Medical Conditions or Safety Concerns. Roll Left & Right (QC): 3 (rolls to right , needs assist to left) Sit to Lying (QC): 5 Lying to Sitting/Side of Bed(Q: 5 Sit to Stand (QC): 4 Chair/Wxw-zc-Kjspq Xfer(QC): 4 (3 to right , 4 to left) emphasis on safe SPTs to left this RX w/c to Rx table Weight Bearing Right Lower Extremity: Right Weight Bearing/Tolerated Left Lower Extremity: Left Full Weight Bearing right leg brace to be on at all times, knee flexion limited to 90 degrees. Ok to begin WB on R on 09/29/20. Gait Training Does the Patient Walk?: Yes Gait Persons Needed: 1 Gait Assistive Device: Parallel Bars assist to stabilize R knee and to advance RLE 6 ft x 3 in // bars, w/c to follow, gait not functional Wheelchair Training Does the Pt Use a Wheelchair?: Yes Wheel 50 ft with 2 turns (QC): 5 Wheel 150 ft (QC): 5 Type of Wheelchair: Manual needs directed to destination, needs assist for leg rest for RLE, brakes indep but needs reminded Exercises Supine Ex: Ankle pumps, Quad Set, Rolling, Glut sets, Heel Slides, Short Arc Quads, Scooting, Straight leg raise, Hip abd/add Supine Reps: 15 (left side) Assessment Current Status: Good Progress PT Short Term Goals Short Term Goals Time Frame: Sep 29, 2020 Roll Left & Right: 4 Sit to lyin Lying to sitting on side of be: 4 Sit to stand: 4 Chair/yfy-md-dehnt transfer: 4 Wheel 50ft w/2 turns: 4 Wheel 150 feet: 4 PT Oil Process [place] Goals Oil Process [place] Goals PT Oil Process [place] Goals Time Frame: Oct 13, 2020 Roll Left & Right (QC): 4 (SBA) Sit to Lying (QC): 4 (SBA) Lying-Sitting on Side/Bed(QC): 4 (SBA) Sit to Stand (QC): 4 (SBA) Chair/Eqm-oo-Eevja Xfer(QC): 4 (SBA) Toilet Transfer (QC): 4 (SBA) Car Transfer (QC): 4 (SBA) Does the Patient Walk: No and Walking Goal NOT indicated Walk 10 feet (QC): 88 Walk 50ft with 2 Turns (QC): 88 Walk 150 ft (QC): 88 Walking 10ft on Uneven Surface: 88 1 Step (curb) (QC): 88 4 Steps (QC): 88 12 Steps (QC): 88 Picking up an Object (QC): 88 Wheel 50 feet with 2 turns (QC: 6 Wheel 150 feet: 6 PT Plan Treatment/Plan Treatment Plan: Continue Plan of Care Treatment Plan: Bed Mobility, Education, Functional Activity Jeramy, Functional Strength, Group Therapy, Gait, Safety, Therapeutic Exercise, Transfers Treatment Duration: Oct 13, 2020 Frequency: At least 5 of 7 days/Wk (IRF) Estimated Hrs Per Day: 1.5 hours per day Patient and/or Family Agrees t: Yes Safety Risks/Education Patient Education: Gait Training, Transfer Techniques, Correct Positioning, W/C Management, Disease Process, Safety Issues Teaching Recipient: Patient Teaching Methods: Demonstration, Discussion Response to Teaching: Verbalize Understanding, Return Demonstration, Reinforcement Needed Time/GCodes Time In: 800 Time Out: 900 Total Billed Treatment Time: 60 Total Billed Treatment 1,WC20m,FA30m,EX10m GEORGE VILLEGAS DELIVERY ROUTE DRIVER Oct 05, 2020 10:04
--- NOTE | 2020-10-05 10:44 | Speech Therapy Daily Note ---
Speech Daily Progress Note Subjective Date Seen by Provider: Oct 05, 2020 Time Seen by Provider: 00:30 Patient was sitting up in his wc, alert and ready for ST session. Objective Patient completed a series of safety awareness cards with 50% verbal answers with minimal verbal cues. Spontaneous speech continues to improve. Confrontational naming is improving with decreased cuing. Assessment Assessment Current Status: Good Progress Treatment Plan Continue Plan of Care Speech Short Term Goals Short Term Goals Short Term Goals 1) Patient will tolerate least restrictive diet level without s/s of aspiration at 80% or greater with minimal cues. 2) Patient will utilize compensatory strategies as trained at 80% or greater with minima cues. 3) Patient will follow multi step commands with 90% or greater with minimal cues. 4) Patient will utilize communication board to assist with meeting wants/needs with moderate cue.s Speech Skilled Nursing Goals Skilled Nursing Goals Patient will maintain adequate nutrition/hydration via safe effective swallow function. Patient will participate in ongoing assessment for functional level of language abilities. Speech-Plan Patient/Family Goals Patient/Family Goals: Patient plans to return home with family and friends for support of his daily needs. Treatment Plan Speech Therapy Treatment Plan: Continue Plan of Care Treatment Duration: Oct 12, 2020 Frequency: 4 times per week (Patient will receive skilled ST 4 to 5x per week) Estimated Hrs Per Day: .5 hour per day Rehab Potential: Good Barriers to Learning: Patient's expressive aphasia due to new CVA Pt/Family Agrees to Plan: Yes Safety Risks/Education Teaching Recipient: Patient Teaching Methods: Demonstration, Discussion Response to Teaching: Verbalize Understanding, Return Demonstration Education Topics Provided: Continued safety within his room, continued safety with oral intake. Time Speech Therapy Time In: 09:00 Speech Therapy Time Out: 09:30 Total Billed Time: 30 Billed Treatment Time 1, SLTS, DYST DENISE Perdomo Oct 05, 2020 10:44
--- NOTE | 2020-10-05 12:00 | NUR ---
After having dizziness and feeling tired after shower at 1100, continues to feel tired but dizziness improved. Blood pressure 120's over 80's x2, will continue to monitor.
--- NOTE | 2020-10-05 13:22 | Physical Therapy Daily Note ---
PT Daily Note-Current Subjective Pt. in recliner asleep, difficult to awaken. Through process of elimination this CLINICAL ACCOUNT MANAGER discovers pt. is from [place]. Pain Location: No Pain Reported Mental Status Patient Orientation: Non-Verbal/Aphasic Attachments: Other-See Comments (IROM RLE) Transfers SCALE: Activities may be completed with or without assistive devices. 5-Gnzdsklzoo-ltkfuiw completes the activity by him/herself with no assistance from a helper. 5-Set-up or Clean-up Assistance-helper sets up or cleans up; patient completes activity. [place] assists only prior to or following the activity. 4-Supervision or Touching Assistance-helper provides verbal cues and/or touching/steadying and/or contact guard assistance as patient completes activity. Assistance may be provided throughout the activity or intermittently. 3-Partial/Moderate Assistance-helper does LESS THAN HALF the effort. [place] lifts, holds or supports trunk or limbs, but provides less than half the effort. 2-Substantial/Maximal Assistance-helper does MORE THAN HALF the effort. [place] lifts or holds trunk or limbs and provides more than half the effort. 7-Evrysvjwt-vpczxy does ALL the effort. Patient does none of the effort to complete the activity. Or, the assistance of 2 or more helpers is required for the patient to complete the activity. If activity was not attempted, code reason: 7-Patient Refused. 9-Not Applicable-not attempted and the patient did not perform the activity before the current illness, exacerbation or injury. 10-Not Attempted due to Environmental Limitations-(lack of equipment, weather restraints, etc.). 88-Not Attempted due to Medical Conditions or Safety Concerns. sit to stand min assist Weight Bearing Right Lower Extremity: Right Weight Bearing/Tolerated Left Lower Extremity: Left Full Weight Bearing right leg brace to be on at all times, knee flexion limited to 90 degrees. Ok to begin WB on R on 09/29/20. Exercises Supine Ex: Ankle pumps (HC stretch R), Quad Set, Rolling, Glut sets, Heel Slides, Scooting (up in recliner), Straight leg raise, Hip abd/add Supine Reps: 15 ROM assisted on RLE Assessment Current Status: Good Progress PT Short Term Goals Short Term Goals Time Frame: Sep 29, 2020 Roll Left & Right: 4 Sit to lyin Lying to sitting on side of be: 4 Sit to stand: 4 Chair/vmq-vx-pfmfk transfer: 4 Wheel 50ft w/2 turns: 4 Wheel 150 feet: 4 PT Manager Ems Goals Manager Ems Goals PT Manager Ems Goals Time Frame: Oct 13, 2020 Roll Left & Right (QC): 4 (SBA) Sit to Lying (QC): 4 (SBA) Lying-Sitting on Side/Bed(QC): 4 (SBA) Sit to Stand (QC): 4 (SBA) Chair/Jli-we-Vdrdn Xfer(QC): 4 (SBA) Toilet Transfer (QC): 4 (SBA) Car Transfer (QC): 4 (SBA) Does the Patient Walk: No and Walking Goal NOT indicated Walk 10 feet (QC): 88 Walk 50ft with 2 Turns (QC): 88 Walk 150 ft (QC): 88 Walking 10ft on Uneven Surface: 88 1 Step (curb) (QC): 88 4 Steps (QC): 88 12 Steps (QC): 88 Picking up an Object (QC): 88 Wheel 50 feet with 2 turns (QC: 6 Wheel 150 feet: 6 PT Plan Treatment/Plan Treatment Plan: Continue Plan of Care Treatment Plan: Bed Mobility, Education, Functional Activity Jeramy, Functional Strength, Group Therapy, Gait, Safety, Therapeutic Exercise, Transfers Treatment Duration: Oct 13, 2020 Frequency: At least 5 of 7 days/Wk (IRF) Estimated Hrs Per Day: 1.5 hours per day Patient and/or Family Agrees t: Yes Time/GCodes Time In: 1300 Time Out: 1315 Total Billed Treatment Time: 15 Total Billed Treatment 1,EX15m GEORGE VILLEGAS CLINICAL ACCOUNT MANAGER Oct 05, 2020 13:22
--- NOTE | 2020-10-05 14:01 | Occupational Ther Daily Note ---
OT Current Status-Daily Note Subjective Pt. reports that he is dizzy and tired after shower. Please see note. Mental Status/Objective Patient Orientation: Person, Place ADL-Treatment Therapy Code Descriptions/Definitions Functional [place] Measure: 0=Not Assessed/NA 4=Minimal Assistance 1=Total Assistance 5=Supervision or Setup 2=Maximal Assistance 6=Modified [place] 3=Moderate Assistance 7=Complete IndependenceSCALE: Activities may be completed with or without assistive devices. 9-Waypiztfjy-lsmcted completes the activity by him/herself with no assistance from a helper. 5-Set-up or Clean-up Assistance-helper sets up or cleans up; patient completes activity. [place] assists only prior to or following the activity. 4-Supervision or Touching Assistance-helper provides verbal cues and/or touching/steadying and/or contact guard assistance as patient completes activity. Assistance may be provided throughout the activity or intermittently. 3-Partial/Moderate Assistance-helper does LESS THAN HALF the effort. [place] lifts, holds or supports trunk or limbs, but provides less than half the effort. 2-Substantial/Maximal Assistance-helper does MORE THAN HALF the effort. [place] lifts or holds trunk or limbs and provides more than half the effort. 1-Eqbweowzk-dqwsub does ALL the effort. Patient does none of the effort to compl ete the activity. Or, the assistance of 2 or more helpers is required for the patient to complete the activity. If activity was not attempted, code reason: 7-Patient Refused. 9-Not Applicable-not attempted and the patient did not perform the activity before the current illness, exacerbation or injury. 10-Not Attempted due to Environmental Limitations-(lack of equipment, weather restraints, etc.). 88-Not Attempted due to Medical Conditions or Safety Concerns. Shower/Bathe Self (QC): 3 (Min assist in stance to wash abi area fully.) Upper Body Dressing (QC): 3 (Min assist to pull down shirt.) Lower Body Dressing (QC): 2 On/Off Footwear: 2 Other Treatment Pt. agrees to treatment. He has already had PT and speech therapy this a.m. OT brings in eye patch, but pt. declines it at this time stating, "I will try it later." Pt. agrees to take a shower. Transfers sit-stand and into shower with min assist. Pt. demonstrates flat affect and does not respond often first time he is addressed. Pt. sits and does not initiate taking shower once it is on. Requires cues to sequence next step. After he begins to shower, it is noted that pt. is using his hand and the water, but does not use soap or cloth. Pt. cued to do so and is given soap. He requires assistance for rear abi area. After shower, pt. dons shirt with min assist, and does not initiate pulling it down in back as he usually does. Transferred to wheelchair with min assist. Pt. begins to indicate that he is really tired, and has difficulty with further participation. Nursing notified. BP taken in wheelchair, and is 125/90. Pt. transfers to recliner per his request, and rests. Indicates that he feels dizzy. OT takes BP again and it is 123/85. Nursing comes into room to assess pt. Pt. is using few words to communicate and has to be asked several times. Recliner completely extended and pt. allowed to rest. Nursing stays at side to continue monitoring. Pt. begins to report that he is feeling better. OT will come back later. Education OT Patient Education: Correct positioning, Modified ADL techniques, Progress toward Goal/Update tx plan, Purpose of tx/functional activities, Reviewed precautions, Rehab process, Transfer techniques Teaching Recipient: Patient Teaching Methods: Demonstration, Discussion Response to Teaching: Verbalize Understanding, Return Demonstration, Reinforcement Needed OT Short Term Goals Short Term Goals Time Frame: Oct 06, 2020 Eatin Oral hygiene: 3 Toileting hygiene: 3 Shower/bathe self: 3 Upper body dressin Lower body dressin Putting on/taking off footwear: 3 OT [facility] Goals Architect Manager Goals Time Frame: Oct 20, 2020 Eating (QC): 6 Oral Hygiene (QC): 6 Toileting Hygiene (QC): 4 Shower/Bathe Self (QC): 4 Upper Body Dressing (QC): 5 Lower Body Dressing (QC): 4 On/Off Footwear (QC): 4 Additional Goals: 1-Demonstrate ADL Tasks, 2-Verbalize Understanding, 3- ImproveStrength/Jeramy 1=Demonstrate adherence to instructed precautions during ADL tasks. 2=Patient will verbalize/demonstrate understanding of assistive devices/modifications for ADL. 3=Patient will improve strength/tolerance for activity to enable patient to perform ADL's. OT Education/Plan Problem List/Assessment Assessment: Decreased Activ Tolerance, Decreased UE Strength, Dependent Transfers, Impaired Cognition, Impaired Coordination, Impaired Funct Balance, Impaired I ADL's, Impaired Self-Care Skills, Restricted Funct UE ROM, Visual- Perceptual Deficit Discharge Recommendations Plan/Recommendations: Continue POC Therapy Discharge Recommendati: 24 Hour Supervision, Home & Family, Post Acute OT Treatment Plan/Plan of Care Treatment,Training & Education: Yes Patient would benefit from OT for education, treatment and training to promote independence in ADL's, mobility, safety and/or upper extremity function for ADL's. Plan of Care: ADL Retraining, Functional Mobility, UE Funct Exercise/Act, UE Neuromus Re-Ed/Coord Treatment Duration: Oct 20, 2020 Frequency: At least 5 of 7 days/Wk (IRF) Estimated Hrs Per Day: 1.5 hours per day Agreement: Yes Rehab Potential: Fair Time/GCodes Start Time: 09:30 Stop Time: 10:25 Total Time Billed (hr/min): 55 Billed Treatment Time 1, ADL x 4 AMISH ROBERTO OT Oct 05, 2020 14:01
--- NOTE | 2020-10-05 14:07 | Occupational Ther Daily Note ---
OT Current Status-Daily Note Subjective Pt. up in chair. Has just finished with PT. No pain reported. Agrees to work with OT. Mental Status/Objective Patient Orientation: Person ADL-Treatment Therapy Code Descriptions/Definitions Functional [place] Measure: 0=Not Assessed/NA 4=Minimal Assistance 1=Total Assistance 5=Supervision or Setup 2=Maximal Assistance 6=Modified [place] 3=Moderate Assistance 7=Complete IndependenceSCALE: Activities may be completed with or without assistive devices. 2-Fhpsuertyq-bgxzjwr completes the activity by him/herself with no assistance from a helper. 5-Set-up or Clean-up Assistance-helper sets up or cleans up; patient completes activity. [place] assists only prior to or following the activity. 4-Supervision or Touching Assistance-helper provides verbal cues and/or touching/steadying and/or contact guard assistance as patient completes activity. Assistance may be provided throughout the activity or intermittently. 3-Partial/Moderate Assistance-helper does LESS THAN HALF the effort. [place] lifts, holds or supports trunk or limbs, but provides less than half the effort. 2-Substantial/Maximal Assistance-helper does MORE THAN HALF the effort. [place] lifts or holds trunk or limbs and provides more than half the effort. 2-Phkzzerax-qtswlf does ALL the effort. Patient does none of the effort to complete the activity. Or, the assistance of 2 or more helpers is required for the patient to complete the activity. If activity was not attempted, code reason: 7-Patient Refused. 9-Not Applicable-not attempted and the patient did not perform the activity before the current illness, exacerbation or injury. 10-Not Attempted due to Environmental Limitations-(lack of equipment, weather restraints, etc.). 88-Not Attempted due to Medical Conditions or Safety Concerns. On/Off Footwear: 2 (OT brings in adaptive equipment to begin working with pt. to increase independence with donning footwear. Pt. is educated about each piece. Pt. is able to doff left sock with dressing stick with cues. OT attempts to have pt. don left sock with hard sock aide. This is difficult one handed, and then pt. has difficulty processing how to pull it up onto his foot once it is placed for him. OT brings in soft sock aide. Pt. is able to don sock onto this easier, but still requires assist. Pt. is encouraged to attempt this onto right foot. This is very difficult due to brace and weakness. Once OT places foot into sock aide, pt. does not initiate pulling up, and demonstrates flat behavior. Pt. is non verbal and will point to what he needs.) Other Treatment After attempting footwear with AE, pt. is asked again how his vision is doing. He states, "bad." OT asks again if he is having dizziness or double vision. He states, "no," and with prompting states, "It's messed up." OT gives pt. option of trying eye patch. He agrees this time and patch is placed. Pt. indicates it helps somewhat. Sign is placed in room, and nursing is encouraged to have pt. change patch every two hours, alternating between eyes. Pt. is educated as well . Education OT Patient Education: Correct positioning, Modified ADL techniques, Progress toward Goal/Update tx plan, Purpose of tx/functional activities, Reviewed precautions, Rehab process, Use of adapted equipment Teaching Recipient: Patient Teaching Methods: Demonstration, Discussion Response to Teaching: Reinforcement Needed OT Short Term Goals Short Term Goals Time Frame: Oct 06, 2020 Eatin Oral hygiene: 3 Toileting hygiene: 3 Shower/bathe self: 3 Upper body dressin Lower body dressin Putting on/taking off footwear: 3 OT Human Resources Assistant Manager Goals [facility] Goals Time Frame: Oct 20, 2020 Eating (QC): 6 Oral Hygiene (QC): 6 Toileting Hygiene (QC): 4 Shower/Bathe Self (QC): 4 Upper Body Dressing (QC): 5 Lower Body Dressing (QC): 4 On/Off Footwear (QC): 4 Additional Goals: 1-Demonstrate ADL Tasks, 2-Verbalize Understanding, 3- ImproveStrength/Jeramy 1=Demonstrate adherence to instructed precautions during ADL tasks. 2=Patient will verbalize/demonstrate understanding of assistive devices/modifications for ADL. 3=Patient will improve strength/tolerance for activity to enable patient to perform ADL's. OT Education/Plan Problem List/Assessment Assessment: Decreased Activ Tolerance, Decreased UE Strength, Dependent Transfers, Impaired Cognition, Impaired Coordination, Impaired I ADL's, Impaired Self-Care Skills, Restricted Funct UE ROM, Visual-Perceptual Deficit Discharge Recommendations Plan/Recommendations: Continue POC Therapy Discharge Recommendati: 24 Hour Supervision, Home & Family, Post Acute OT Treatment Plan/Plan of Care Treatment,Training & Education: Yes Patient would benefit from OT for education, treatment and training to promote independence in ADL's, mobility, safety and/or upper extremity function for ADL's. Plan of Care: ADL Retraining, Functional Mobility, UE Funct Exercise/Act, UE Neuromus Re-Ed/Coord Treatment Duration: Oct 20, 2020 Frequency: At least 5 of 7 days/Wk (IRF) Estimated Hrs Per Day: 1.5 hours per day Agreement: Yes Rehab Potential: Fair Time/GCodes Start Time: 13:25 Stop Time: 13:45 Total Time Billed (hr/min): 20 Billed Treatment Time 1, ADL AMISH ROBERTO OT Oct 05, 2020 14:07
--- NOTE | 2020-10-05 14:23 | NUR ---
Patient care conference Discussed care team conference summary with patient and team's recommendation for recheck next 10/12/2020. Patient verbalized understanding; however, reported he would like to go home. Informed patient that the team would recheck progress next Saturday and arrange another family training/education session after team conference on or Saturday, with an anticipated discharge date set later the next week. Patient verbalized understanding.
--- NOTE | 2020-10-05 15:26 | NUR ---
CM/SS CONCURRENT DOCUMENTATION Call from patient's sister Ana, updated regarding reassessment next Saturday with second family education/demonstration/planning to be scheduled. Ana stated ramp should be done within 2-3 days. Post discharge care plan will be for HHC, RN PT OT. DME anticipated, wheelchair and FWW. Will explore case management opportunity through [employer].
[2020-10-05 17:57] VITALS: BP 125/83
--- NOTE | 2020-10-05 19:06 | NUR ---
Bedside report received from NOMI HOANG & BECKY HOANG, assume care of pt
--- NOTE | 2020-10-05 20:13 | NUR ---
Zofran 4mg given prior to hs meds to prevent nausea with meds
[2020-10-05] MEDS: ZONISAMIDE 100 MG CAP (ZONEGRAN) NON-FORMULARY PO SCH (21:34)
[2020-10-05] MEDS: DOXYCYCLINE 100 MG (VIBRAMYCIN) TABLET PO SCH (21:35)
--- NOTE | 2020-10-05 21:35 | NUR ---
Hs meds given with applesauce tolerated well no c/o nausea
[2020-10-06 05:59] VITALS: BP 116/74
[2020-10-06] MEDS: ONDANSETRON 4 MG (ZOFRAN) ORAL DISSOLVE TAB PO PRN ×2 (08:07→20:22)
[2020-10-06] MEDS: LACOSAMIDE 100 MG PO SCH ×2 (08:41→21:43)
[2020-10-06] MEDS: APIXABAN 5 MG (ELIQUIS) TABLET PO SCH ×2 (08:45→21:44)
[2020-10-06] MEDS: PANTOPRAZOLE 40 MG (PROTONIX) TAB PO SCH (08:45)
[2020-10-06] MEDS: VIMPAT 200 MG TABLET PO SCH ×2 (08:45→21:43)
[2020-10-06] MEDS: FLUoxetine HCL 20 MG (PROzac) CAP PO SCH (08:45)
--- NOTE | 2020-10-06 09:57 | Physical Therapy Daily Note ---
PT Daily Note-Current Subjective Patient in recliner pre tx, agrees to PT, has no complaints of pain. Will be co-treating with OT due to poor patient mobility, strength, endurance, right hemiparesis, the need to coordinate UE and LE during activity, safety and reduce risk of falls. Appearance Patient in recliner post tx with nurse call, phone, tray, all needs met. Mental Status Patient Orientation: Person, Unable to Assess, Non-Verbal/Aphasic right leg brace Transfers SCALE: Activities may be completed with or without assistive devices. 8-Fhckagweem-sxclaaa completes the activity by him/herself with no assistance from a helper. 5-Set-up or Clean-up Assistance-helper sets up or cleans up; patient completes activity. [place] assists only prior to or following the activity. 4-Supervision or Touching Assistance-helper provides verbal cues and/or touching/steadying and/or contact guard assistance as patient completes activity. Assistance may be provided throughout the activity or intermittently. 3-Partial/Moderate Assistance-helper does LESS THAN HALF the effort. [place] lifts, holds or supports trunk or limbs, but provides less than half the effort. 2-Substantial/Maximal Assistance-helper does MORE THAN HALF the effort. [place] lifts or holds trunk or limbs and provides more than half the effort. 1-Xrkbvgsla-rudbfj does ALL the effort. Patient does none of the effort to complete the activity. Or, the assistance of 2 or more helpers is required for the patient to complete the activity. If activity was not attempted, code reason: 7-Patient Refused. 9-Not Applicable-not attempted and the patient did not perform the activity before the current illness, exacerbation or injury. 10-Not Attempted due to Environmental Limitations-(lack of equipment, weather restraints, etc.). 88-Not Attempted due to Medical Conditions or Safety Concerns. Sit to Stand (QC): 4 Chair/Nzr-th-Uyhwr Xfer(QC): 4 Patient can now perform stand pivot transfers to the right side with CGA as long as he is positioned correctly beforehand and has careful cues for direction and positioning. Weight Bearing Right Lower Extremity: Right Weight Bearing/Tolerated Left Lower Extremity: Left Full Weight Bearing right leg brace to be on at all times, knee flexion limited to 90 degrees. Ok to begin WB on R on 12/24/20. Gait Training Distance: 6'x6 Gait Assistive Device: Parallel Bars WC follow, cues for step sequence, needs assist advancing his right leg Wheelchair Training Does the Pt Use a Wheelchair?: Yes Wheel 50 ft with 2 turns (QC): 4 Wheel 150 ft (QC): 4 Type of Wheelchair: Manual Exercises standing in parallel bars working on right leg weight bearing Treatments PT worked on transfers, ambulation, WC mobility, standing with weight bearing, OT worked on UE positioning and ROM, safety Assessment Current Status: Fair Progress Patient is able to bear a little weight on his right leg but not enough to keep his knee from buckling. PT Short Term Goals Short Term Goals Time Frame: Sep 29, 2020 Roll Left & Right: 4 Sit to lyin Lying to sitting on side of be: 4 Sit to stand: 4 Chair/ncf-bt-hovcd transfer: 4 Wheel 50ft w/2 turns: 4 Wheel 150 feet: 4 PT Asbestos Worker Goals Assisted Goals PT Assisted Goals Time Frame: Oct 13, 2020 Roll Left & Right (QC): 4 (SBA) Sit to Lying (QC): 4 (SBA) Lying-Sitting on Side/Bed(QC): 4 (SBA) Sit to Stand (QC): 4 (SBA) Chair/Svi-bj-Ajtao Xfer(QC): 4 (SBA) Toilet Transfer (QC): 4 (SBA) Car Transfer (QC): 4 (SBA) Does the Patient Walk: No and Walking Goal NOT indicated Walk 10 feet (QC): 88 Walk 50ft with 2 Turns (QC): 88 Walk 150 ft (QC): 88 Walking 10ft on Uneven Surface: 88 1 Step (curb) (QC): 88 4 Steps (QC): 88 12 Steps (QC): 88 Picking up an Object (QC): 88 Wheel 50 feet with 2 turns (QC: 6 Wheel 150 feet: 6 PT Plan Problem List Problem List: Activity Tolerance, Functional Strength, Safety, Balance, Gait, Transfer, Bed Mobility, ROM Treatment/Plan Treatment Plan: Continue Plan of Care Treatment Plan: Bed Mobility, Education, Functional Activity Jeramy, Functional Strength, Group Therapy, Gait, Safety, Therapeutic Exercise, Transfers Treatment Duration: Oct 13, 2020 Frequency: At least 5 of 7 days/Wk (IRF) Estimated Hrs Per Day: 1.5 hours per day Patient and/or Family Agrees t: Yes Safety Risks/Education Patient Education: Gait Training, Transfer Techniques, Correct Positioning, W/C Management, Safety Issues Teaching Recipient: Patient Teaching Methods: Demonstration, Discussion Response to Teaching: Reinforcement Needed Time/GCodes Time In: 0900 Time Out: 1000 Total Billed Treatment Time: 60 Total Billed Treatment 1 visit FA 60' co-treated for 60' RACHEL LOPEZ PT Oct 06, 2020 09:57
--- NOTE | 2020-10-06 11:02 | Occupational Ther Daily Note ---
OT Current Status-Daily Note Subjective No pain reported. Mental Status/Objective Patient Orientation: Person, Place ADL-Treatment Therapy Code Descriptions/Definitions Functional [place] Measure: 0=Not Assessed/NA 4=Minimal Assistance 1=Total Assistance 5=Supervision or Setup 2=Maximal Assistance 6=Modified [place] 3=Moderate Assistance 7=Complete IndependenceSCALE: Activities may be completed with or without assistive devices. 4-Ffjbetyknd-hyoeeip completes the activity by him/herself with no assistance from a helper. 5-Set-up or Clean-up Assistance-helper sets up or cleans up; patient completes activity. [place] assists only prior to or following the activity. 4-Supervision or Touching Assistance-helper provides verbal cues and/or touching/steadying and/or contact guard assistance as patient completes activity. Assistance may be provided throughout the activity or intermittently. 3-Partial/Moderate Assistance-helper does LESS THAN HALF the effort. [place] lifts, holds or supports trunk or limbs, but provides less than half the effort. 2-Substantial/Maximal Assistance-helper does MORE THAN HALF the effort. [place] lifts or holds trunk or limbs and provides more than half the effort. 1-Tycclzmri-jammow does ALL the effort. Patient does none of the effort to complete the activity. Or, the assistance of 2 or more helpers is required for the patient to complete the activity. If activity was not attempted, code reason: 7-Patient Refused. 9-Not Applicable-not attempted and the patient did not perform the activity before the current illness, exacerbation or injury. 10-Not Attempted due to Environmental Limitations-(lack of equipment, weather restraints, etc.). 88-Not Attempted due to Medical Conditions or Safety Concerns. Pt. seen this date for co-treatment with PT/OT due to high level balance/weight shift/UE/mobility tasks. OT focused on right UE assessment and positioning during stance, as well as weight shift and balance, while PT focused on Right LE and mobility/transfers. Pt. stood multiple times in parallel bars with min assist and ambulated length of bars. Pt. required CGA for weight shift and cues, while PT advanced right LE forward when off loading onto left LE. Please see PT note for amount of times ambulated. Pt. then worked on standing facing bar with bilateral hands on bar, and right UE positioned in grasp. OT facilitated weight bear through right UE/shoulder, while PT focused on bearing weight and positioning through right LE. OT provided gentle stretch to right UE at shoulder, elbow, wrist, and finger level. Facilitated scapular glide and joint compressions for safe joint position. No active movement noted. No subluxation noted. Poor sensory present. Pt. agrees to wear eye patch, saying that it does "help." However, during treatment pt. doffs patch and is unable to state why. Pt. just indicates that he does not want to wear it at this moment. Pt. taken back to room and transferred to reclining chair. All needs met. Education OT Patient Education: Correct positioning, Exercise program, Progress toward Goal/Update tx plan, Purpose of tx/functional activities, Reviewed precautions, Rehab process, Transfer techniques Teaching Recipient: Patient Teaching Methods: Demonstration, Discussion Response to Teaching: Verbalize Understanding, Return Demonstration OT Short Term Goals Short Term Goals Time Frame: Oct 06, 2020 Eatin Oral hygiene: 3 Toileting hygiene: 3 Shower/bathe self: 3 Upper body dressin Lower body dressin Putting on/taking off footwear: 3 OT [facility] Goals Access Coordinator Goals Time Frame: Oct 20, 2020 Eating (QC): 6 Oral Hygiene (QC): 6 Toileting Hygiene (QC): 4 Shower/Bathe Self (QC): 4 Upper Body Dressing (QC): 5 Lower Body Dressing (QC): 4 On/Off Footwear (QC): 4 Additional Goals: 1-Demonstrate ADL Tasks, 2-Verbalize Understanding, 3- ImproveStrength/Jeramy 1=Demonstrate adherence to instructed precautions during ADL tasks. 2=Patient will verbalize/demonstrate understanding of assistive devices/modifications for ADL. 3=Patient will improve strength/tolerance for activity to enable patient to perform ADL's. OT Education/Plan Problem List/Assessment Assessment: Decreased Activ Tolerance, Decreased UE Strength, Dependent Transfers, Impaired Cognition, Impaired Coordination, Impaired Funct Balance, Impaired I ADL's, Impaired Self-Care Skills, Restricted Funct UE ROM, Visual- Perceptual Deficit Discharge Recommendations Plan/Recommendations: Continue POC Therapy Discharge Recommendati: Home & Family, Post Acute OT Treatment Plan/Plan of Care Treatment,Training & Education: Yes Patient would benefit from OT for education, treatment and training to promote independence in ADL's, mobility, safety and/or upper extremity function for ADL's. Plan of Care: ADL Retraining, Functional Mobility, UE Funct Exercise/Act, UE Neuromus Re-Ed/Coord Treatment Duration: Oct 20, 2020 Frequency: At least 5 of 7 days/Wk (IRF) Estimated Hrs Per Day: 1.5 hours per day Agreement: Yes Rehab Potential: Fair Time/GCodes Start Time: 09:05 Stop Time: 10:00 Total Time Billed (hr/min): 55 Billed Treatment Time 1, FA x 4 Co-treatment with PT. Please see above note for designated roles. AMISH ROBERTO OT Oct 06, 2020 11:02
--- NOTE | 2020-10-06 11:42 | Physical Therapy Daily Note ---
PT Daily Note-Current Subjective Patient in recliner pre tx, agrees to PT, has no complaints of pain. Appearance Patient in recliner post tx with nurse call, phone, tray, all needs met. Mental Status Patient Orientation: Person, Unable to Assess, Non-Verbal/Aphasic right leg brace Transfers SCALE: Activities may be completed with or without assistive devices. 5-Nzbticgata-wlokzzl completes the activity by him/herself with no assistance from a helper. 5-Set-up or Clean-up Assistance-helper sets up or cleans up; patient completes activity. [place] assists only prior to or following the activity. 4-Supervision or Touching Assistance-helper provides verbal cues and/or touching/steadying and/or contact guard assistance as patient completes activity. Assistance may be provided throughout the activity or intermittently. 3-Partial/Moderate Assistance-helper does LESS THAN HALF the effort. [place] lifts, holds or supports trunk or limbs, but provides less than half the effort. 2-Substantial/Maximal Assistance-helper does MORE THAN HALF the effort. [place] lifts or holds trunk or limbs and provides more than half the effort. 1-Alpbxyrmp-ylckyf does ALL the effort. Patient does none of the effort to complete the activity. Or, the assistance of 2 or more helpers is required for the patient to complete the activity. If activity was not attempted, code reason: 7-Patient Refused. 9-Not Applicable-not attempted and the patient did not perform the activity before the current illness, exacerbation or injury. 10-Not Attempted due to Environmental Limitations-(lack of equipment, weather restraints, etc.). 88-Not Attempted due to Medical Conditions or Safety Concerns. Weight Bearing Right Lower Extremity: Right Weight Bearing/Tolerated Left Lower Extremity: Left Full Weight Bearing right leg brace to be on at all times, knee flexion limited to 90 degrees. Ok to begin WB on R on 09/29/20. Exercises RLE PROM/stretching (no knee flexion past 90 degrees, patient is able to achieve 90 degrees of knee flexion on his right knee), attempted QS but patient is not able to contract quadriceps even with manual cues Treatments ROM/stretching Assessment Current Status: Fair Progress patient maintaining good ROM in right leg, no ankle contractures PT Short Term Goals Short Term Goals Time Frame: Sep 29, 2020 Roll Left & Right: 4 Sit to lyin Lying to sitting on side of be: 4 Sit to stand: 4 Chair/ikp-lo-skiyd transfer: 4 Wheel 50ft w/2 turns: 4 Wheel 150 feet: 4 PT Director Of Income Tax Goals Correction Goals PT Director Of Income Tax Goals Time Frame: Oct 13, 2020 Roll Left & Right (QC): 4 (SBA) Sit to Lying (QC): 4 (SBA) Lying-Sitting on Side/Bed(QC): 4 (SBA) Sit to Stand (QC): 4 (SBA) Chair/Cis-px-Rgwbl Xfer(QC): 4 (SBA) Toilet Transfer (QC): 4 (SBA) Car Transfer (QC): 4 (SBA) Does the Patient Walk: No and Walking Goal NOT indicated Walk 10 feet (QC): 88 Walk 50ft with 2 Turns (QC): 88 Walk 150 ft (QC): 88 Walking 10ft on Uneven Surface: 88 1 Step (curb) (QC): 88 4 Steps (QC): 88 12 Steps (QC): 88 Picking up an Object (QC): 88 Wheel 50 feet with 2 turns (QC: 6 Wheel 150 feet: 6 PT Plan Problem List Problem List: Activity Tolerance, Functional Strength, Safety, Balance, Gait, Transfer, Bed Mobility, ROM Treatment/Plan Treatment Plan: Continue Plan of Care Treatment Plan: Bed Mobility, Education, Functional Activity Jeramy, Functional Strength, Group Therapy, Gait, Safety, Therapeutic Exercise, Transfers Treatment Duration: Oct 13, 2020 Frequency: At least 5 of 7 days/Wk (IRF) Estimated Hrs Per Day: 1.5 hours per day Patient and/or Family Agrees t: Yes Safety Risks/Education Patient Education: Correct Positioning, Safety Issues Teaching Recipient: Patient Teaching Methods: Demonstration, Discussion Response to Teaching: Reinforcement Needed Time/GCodes Time In: 1115 Time Out: 1130 Total Billed Treatment Time: 15 Total Billed Treatment 1 visit EX RACHEL FERNANDEZ PT Oct 06, 2020 11:42
--- NOTE | 2020-10-06 12:00 | NUR ---
Trial of regular lunch given with Earlene speech therapist at bedside. Ate too fast and had N/V, but speech therapist states no swallowing difficulties and may keep on regular diet with thin liquids.
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
--- NOTE | 2020-10-06 13:57 | Occupational Ther Daily Note ---
OT Current Status-Daily Note Subjective No pain reported. Appearance Pt. sitting up in chair. Eating lunch. Agrees to work with OT. Mental Status/Objective Patient Orientation: Person, Place ADL-Treatment Therapy Code Descriptions/Definitions Functional [place] Measure: 0=Not Assessed/NA 4=Minimal Assistance 1=Total Assistance 5=Supervision or Setup 2=Maximal Assistance 6=Modified [place] 3=Moderate Assistance 7=Complete IndependenceSCALE: Activities may be completed with or without assistive devices. 7-Jroqdqxdgg-pxdrjdd completes the activity by him/herself with no assistance from a helper. 5-Set-up or Clean-up Assistance-helper sets up or cleans up; patient completes activity. [place] assists only prior to or following the activity. 4-Supervision or Touching Assistance-helper provides verbal cues and/or touching/steadying and/or contact guard assistance as patient completes activity. Assistance may be provided throughout the activity or intermittently. 3-Partial/Moderate Assistance-helper does LESS THAN HALF the effort. [place] lifts, holds or supports trunk or limbs, but provides less than half the effort. 2-Substantial/Maximal Assistance-helper does MORE THAN HALF the effort. [place] lifts or holds trunk or limbs and provides more than half the effort. 0-Qhtohswhq-hopinl does ALL the effort. Patient does none of the effort to complete the activity. Or, the assistance of 2 or more helpers is required for the patient to complete the activity. If activity was not attempted, code reason: 7-Patient Refused. 9-Not Applicable-not attempted and the patient did not perform the activity before the current illness, exacerbation or injury. 10-Not Attempted due to Environmental Limitations-(lack of equipment, weather restraints, etc.). 88-Not Attempted due to Medical Conditions or Safety Concerns. Eating (QC): 5 (Set up) Other Treatment OT checked on pt. several times. Pt. eating lunch of hamburger and fries. Pt. taking his time, as he became ill earlier from eating too fast. When OT came at last time, pt. still eating and so OT incorporated feeding with session. Pt. is engaged in conversation, in which he is asked a question at first, and asked to state the answer. This would be a question he knew. Pt. unable to generate speech with open ended question, and would fixate saying, "um" multiple times. OT then attempted to have pt. point to each thing on his tray that was told to him, such as hamburger, sprite, etc. Pt. 100% accurate with this. OT asked pt. to name a descriptor word about a specific food item. He was able to do this easier, such as saying "yummy" when asked to describe the hamburger. Or "great" when asked to describe his fries. Pt. indicates that he does like to listen to music. Pt. is able to say, "old country" when asked what kind of music he likes. OT puts on a popular old country song, and pt. is asked to either hum or sing to this song. Pt. is able to do this more fluidly and easily. He is able to sing lyrics from the song with inconsistent pattern. All needs are met up in chair and pt. continues to eat as OT leaves room. Education OT Patient Education: Correct positioning, Modified ADL techniques, Progress toward Goal/Update tx plan, Purpose of tx/functional activities, Reviewed precautions, Rehab process, Transfer techniques Teaching Recipient: Patient Teaching Methods: Demonstration, Discussion Response to Teaching: Verbalize Understanding, Reinforcement Needed OT Short Term Goals Short Term Goals Time Frame: Oct 06, 2020 Eatin Oral hygiene: 3 Toileting hygiene: 3 Shower/bathe self: 3 Upper body dressin Lower body dressin Putting on/taking off footwear: 3 OT Diamond Wheel Edger Goals Diamond Wheel Edger Goals Time Frame: Oct 20, 2020 Eating (QC): 6 Oral Hygiene (QC): 6 Toileting Hygiene (QC): 4 Shower/Bathe Self (QC): 4 Upper Body Dressing (QC): 5 Lower Body Dressing (QC): 4 On/Off Footwear (QC): 4 Additional Goals: 1-Demonstrate ADL Tasks, 2-Verbalize Understanding, 3- ImproveStrength/Jeramy 1=Demonstrate adherence to instructed precautions during ADL tasks. 2=Patient will verbalize/demonstrate understanding of assistive devices/modifications for ADL. 3=Patient will improve strength/tolerance for activity to enable patient to perform ADL's. OT Education/Plan Problem List/Assessment Assessment: Decreased Activ Tolerance, Impaired Cognition Discharge Recommendations Plan/Recommendations: Continue POC Therapy Discharge Recommendati: Scheduled Assistance, Home & Family, Post Acute OT Treatment Plan/Plan of Care Treatment,Training & Education: Yes Patient would benefit from OT for education, treatment and training to promote independence in ADL's, mobility, safety and/or upper extremity function for ADL's. Plan of Care: ADL Retraining, Functional Mobility, UE Funct Exercise/Act, UE Neuromus Re-Ed/Coord Treatment Duration: Oct 20, 2020 Frequency: At least 5 of 7 days/Wk (IRF) Estimated Hrs Per Day: 1.5 hours per day Agreement: Yes Rehab Potential: Good Time/GCodes Start Time: 13:25 Stop Time: 13:45 Total Time Billed (hr/min): 20 Billed Treatment Time 1, FA AMISH ROBERTO OT Oct 06, 2020 13:57
--- NOTE | 2020-10-06 14:24 | Speech Therapy Daily Note ---
Speech Daily Progress Note Subjective Date Seen by Provider: Oct 06, 2020 Time Seen by Provider: 00:30 Patient was sitting up in recliner waiting on lunch when I entered his room. He is being tried on regular food, a cheeseburger and fries with thin liquids today. Patient was anxious to eat "real food". Objective Patient demo compensatory strategies with oral intake of regular diet level at 85% with minimal cues. Patient did eat quickly prompting cues to "slow down". Patient demo swallow function without difficulty. Patient did become nauseous a nd vomited. Patient has been having bouts of the n/v and has been taking medication to help him with it. Patient will be given the medication when it is time for it. Assessment Assessment Current Status: Good Progress Treatment Plan Continue Plan of Care Speech Short Term Goals Short Term Goals Short Term Goals 1) Patient will tolerate least restrictive diet level without s/s of aspiration at 80% or greater with minimal cues. 2) Patient will utilize compensatory strategies as trained at 80% or greater with minima cues. 3) Patient will follow multi step commands with 90% or greater with minimal cues. 4) Patient will utilize communication board to assist with meeting wants/needs with moderate cue.s Speech Halfway Goals Halfway Goals Patient will maintain adequate nutrition/hydration via safe effective swallow function. Patient will participate in ongoing assessment for functional level of language abilities. Speech-Plan Patient/Family Goals Patient/Family Goals: Patient plans on returning to his home where his family and girlfriend will assist him with all of his needs. Treatment Plan Speech Therapy Treatment Plan: Continue Plan of Care Patient will be upgraded to regular diet level with thin liquids. Treatment Duration: Oct 12, 2020 Frequency: 4 times per week (Patient will receive skilled ST 4 to 5x per week) Estimated Hrs Per Day: .5 hour per day Rehab Potential: Good Barriers to Learning: Patient's previous TBI and current CVA with expressive aphasia. Pt/Family Agrees to Plan: Yes Safety Risks/Education Teaching Recipient: Patient Teaching Methods: Demonstration, Discussion Response to Teaching: Verbalize Understanding, Return Demonstration Education Topics Provided: Safety with oral intake, diet levels Time Speech Therapy Time In: 12:00 Speech Therapy Time Out: 12:30 Total Billed Time: 30 Billed Treatment Time 1, REID, DENISE Duran Oct 06, 2020 14:24
[2020-10-06 17:19] VITALS: BP 122/72
--- NOTE | 2020-10-06 18:00 | NUR ---
TOLERATED REGULAR DINNER WELL WITH NO NAUSEA.
[2020-10-06] MEDS: ZONISAMIDE 100 MG CAP (ZONEGRAN) NON-FORMULARY PO SCH (21:42)
[2020-10-06] MEDS: DOXYCYCLINE 100 MG (VIBRAMYCIN) TABLET PO SCH (21:44)
[2020-10-07 06:00] VITALS: BP 119/56
[2020-10-07] MEDS: VIMPAT 200 MG TABLET PO SCH ×2 (08:40→20:32)
[2020-10-07] MEDS: LACOSAMIDE 100 MG PO SCH ×2 (08:40→20:33)
[2020-10-07] MEDS: FLUoxetine HCL 20 MG (PROzac) CAP PO SCH (08:41)
[2020-10-07] MEDS: APIXABAN 5 MG (ELIQUIS) TABLET PO SCH ×2 (08:41→20:31)
[2020-10-07] MEDS: PANTOPRAZOLE 40 MG (PROTONIX) TAB PO SCH (08:41)
[2020-10-07] MEDS: ONDANSETRON 4 MG (ZOFRAN) ORAL DISSOLVE TAB PO PRN ×2 (09:50→19:42)
--- NOTE | 2020-10-07 09:51 | NUR ---
Pt up in w/c and encouraged to eat breakfast as to not take meds on an empty stomach. Pt refused. N/V at this time. Denied crackers or sprite. Zofran given. Assisted back to bed. Cool wash clothe used to wash face. Inc of bladder with good abi-care given and dry clothes put on with max assist. HOB elevated 45%. Call light in reach. Will cont to monitor
--- NOTE | 2020-10-07 11:46 | Physical Therapy Daily Note ---
PT Daily Note-Current Subjective Pt sitting up in w/c upon arrival; agrees to PT/OT co-treat. Pain Numeric Pain Scale: 0-No Pain Location: No Pain Reported Mental Status Patient Orientation: Person, Unable to Assess, Non-Verbal/Aphasic Attachments: Other-See Comments (RLE brace) Transfers SCALE: Activities may be completed with or without assistive devices. 3-Ftnqvguxxi-zuowhpu completes the activity by him/herself with no assistance from a helper. 5-Set-up or Clean-up Assistance-helper sets up or cleans up; patient completes activity. [place] assists only prior to or following the activity. 4-Supervision or Touching Assistance-helper provides verbal cues and/or touching/steadying and/or contact guard assistance as patient completes activity. Assistance may be provided throughout the activity or intermittently. 3-Partial/Moderate Assistance-helper does LESS THAN HALF the effort. [place] lifts, holds or supports trunk or limbs, but provides less than half the effort. 2-Substantial/Maximal Assistance-helper does MORE THAN HALF the effort. [place] lifts or holds trunk or limbs and provides more than half the effort. 3-Bpvqcnpve-bnyzwi does ALL the effort. Patient does none of the effort to complete the activity. Or, the assistance of 2 or more helpers is required for the patient to complete the activity. If activity was not attempted, code reason: 7-Patient Refused. 9-Not Applicable-not attempted and the patient did not perform the activity before the current illness, exacerbation or injury. 10-Not Attempted due to Environmental Limitations-(lack of equipment, weather restraints, etc.). 88-Not Attempted due to Medical Conditions or Safety Concerns. Roll Left & Right (QC): 3 Sit to Lying (QC): 3 Sit to Stand (QC): 4 Chair/Qtj-jq-Abpes Xfer(QC): 3 Weight Bearing Right Lower Extremity: Right Weight Bearing/Tolerated Left Lower Extremity: Left Full Weight Bearing right leg brace to be on at all times, knee flexion limited to 90 degrees. Ok to begin WB on R on 09/29/20. Neuromuscular Worked on sitting balance in shower and when in w/c reaching and bending down to doff/don LE clothing. Treatments PT/OT co-treat, skills of 2 clinicians required for coordination and skilled instruction of bathing, functional transfers and sit to stands. PT focusing on transfers, sit to stand, sitting balance and correct positioning. OT focusing on ADLs and bathing, B UE placement during transfers and sit to stand. Pt transfers from w/c<>shower bench using LUE, shower bar and CGA. Worked on sitting balance in shower and when in w/c reaching and bending down to doff/don LE clothing. After showering, pt up in w/c preparing to self propel to therapy gym. PT propels pt d/t pt not responding when asked if pt would attempt to propel self to gym. When entering gym, pt puts head in L hand. OT/PT asked pt if pt needed a few minutes; pt shook head yes. Pt remained w/ head in hand for several mins; BP taken and was w/in normal range. OT propels pt back to room where pt begins to vomit. When vomiting, pt vomited on LE clothing. RN notified and administered nausea medication. OT/PT attempted multiple times to ask pt if pt would prefer to get into bed or sit up in recliner; pt would not respond or acknowledge PT/OT. Pt finally agreed to transfer to bed. Upon getting into bed, pt immediately begins to vomit again; RN notified. OT/PT remain w/ pt until pt finished vomiting. PT/OT assisted pt w/ doffing LE clothing. Post tx, pt seated in bed w/ head raised, basin w/in reach of LUE, call light in reach and all needs met. Assessment Current Status: Fair Progress Per RN, pt refuses to eat and therefore when taking medication will vomit d/t having an empty stomach. Pt refuses multiple times throughout tx to acknowledge PT/OT. Pt appears frustrated/angry and sighs heavily when asked to complete tasks (transfers, using OT tools to doff/don LE clothing). PT Short Term Goals Short Term Goals Time Frame: Sep 29, 2020 Roll Left & Right: 4 Sit to lyin Lying to sitting on side of be: 4 Sit to stand: 4 Chair/iwc-un-ldsxm transfer: 4 Wheel 50ft w/2 turns: 4 Wheel 150 feet: 4 PT Usp Goals Baggage Checker Goals PT Usp Goals Time Frame: Oct 13, 2020 Roll Left & Right (QC): 4 (SBA) Sit to Lying (QC): 4 (SBA) Lying-Sitting on Side/Bed(QC): 4 (SBA) Sit to Stand (QC): 4 (SBA) Chair/Dyx-rs-Uolme Xfer(QC): 4 (SBA) Toilet Transfer (QC): 4 (SBA) Car Transfer (QC): 4 (SBA) Does the Patient Walk: No and Walking Goal NOT indicated Walk 10 feet (QC): 88 Walk 50ft with 2 Turns (QC): 88 Walk 150 ft (QC): 88 Walking 10ft on Uneven Surface: 88 1 Step (curb) (QC): 88 4 Steps (QC): 88 12 Steps (QC): 88 Picking up an Object (QC): 88 Wheel 50 feet with 2 turns (QC: 6 Wheel 150 feet: 6 PT Plan Problem List Problem List: Activity Tolerance, Functional Strength, Safety, Balance, Transfer, Bed Mobility Treatment/Plan Treatment Plan: Continue Plan of Care Treatment Plan: Bed Mobility, Education, Functional Activity Jeramy, Functional Strength, Group Therapy, Gait, Safety, Therapeutic Exercise, Transfers Treatment Duration: Oct 13, 2020 Frequency: At least 5 of 7 days/Wk (IRF) Estimated Hrs Per Day: 1.5 hours per day Patient and/or Family Agrees t: Yes Safety Risks/Education Patient Education: Transfer Techniques, Correct Positioning, Safety Issues Teaching Recipient: Patient Teaching Methods: Discussion Response to Teaching: Verbalize Understanding Time/GCodes Time In: 0900 Time Out: 1010 Total Billed Treatment Time: 70 Total Billed Treatment PT/OT co-treat, skills of 2 clinicians required for coordination and skilled instruction of bathing, functional transfers and sit to stands. PT focusing on transfers, sit to stand, sitting balance and correct positioning. OT focusing on ADLs and bathing, B UE placement during transfers and sit to stand. 1, FA x3 (47m), NM x2 (23m) EFRAIN LINDSAY DRILL SHARPENER OPERATOR Oct 07, 2020 11:46
--- NOTE | 2020-10-07 11:58 | NUR ---
Pts sister called to check on pt. Pt was told that she called earlier and wanted to hear from him. Pt stated he mimi call her but had not. Updated sister that pt was upgraded to reg food yesterday and it was reported that he ate too fast and vomited on hamb. This morning pt took medication on empty stomach and was educated on taking meds with food or crackers. Instructed sister that i would ask pt to call her. Also informed sister Pt resting and stated he had a good night sleep but felt tired today. Resting comfortably. Call light in reach. Will cont to monitor.
--- NOTE | 2020-10-07 12:10 | Occupational Ther Daily Note ---
OT Current Status-Daily Note Subjective Pt alert up in w/c this am. Pt's food in front of him, agrees to allow OT to take tray. Pt has not ate anything at this point, pt continued to deny eating. Pt agrees to showering this am. PT/OT co-treat, skills of 2 clinicians required for coordination and skilled instruction of bathing, functional transfers and sit to stands. PT focusing on transfers, sit to stand, sitting balance and correct positioning. OT focusing on ADLs and bathing, B UE placement during transfers, problem solving, AE, and sit to stand. ADL-Treatment Therapy Code Descriptions/Definitions Functional [place] Measure: 0=Not Assessed/NA 4=Minimal Assistance 1=Total Assistance 5=Supervision or Setup 2=Maximal Assistance 6=Modified [place] 3=Moderate Assistance 7=Complete IndependenceSCALE: Activities may be completed with or without assistive devices. 5-Genawtbpkk-qxqdffp completes the activity by him/herself with no assistance from a helper. 5-Set-up or Clean-up Assistance-helper sets up or cleans up; patient completes activity. [place] assists only prior to or following the activity. 4-Supervision or Touching Assistance-helper provides verbal cues and/or touching/steadying and/or contact guard assistance as patient completes activity. Assistance may be provided throughout the activity or intermittently. 3-Partial/Moderate Assistance-helper does LESS THAN HALF the effort. [place] lifts, holds or supports trunk or limbs, but provides less than half the effort. 2-Substantial/Maximal Assistance-helper does MORE THAN HALF the effort. [place] lifts or holds trunk or limbs and provides more than half the effort. 0-Ozqoaefnd-fayyhg does ALL the effort. Patient does none of the effort to complete the activity. Or, the assistance of 2 or more helpers is required for the patient to complete the activity. If activity was not attempted, code reason: 7-Patient Refused. 9-Not Applicable-not attempted and the patient did not perform the activity before the current illness, exacerbation or injury. 10-Not Attempted due to Environmental Limitations-(lack of equipment, weather restraints, etc.). 88-Not Attempted due to Medical Conditions or Safety Concerns. Eating (QC): 7 Oral Hygiene (QC): 7 Bathing Location: L Arm, R Arm, L Upper Leg, R Upper Leg, Chest, Abdomen, Buttocks, Perineal Area Shower/Bathe Self (QC): 4 (SBA with cues for continued washing/ use of soap. Pt able to wash all areas, does not bend down for washing B feet. Pt leans side to side on sc to complete bottom/ abi care.) Upper Body Dressing (QC): 5 (s/u) Lower Body Dressing (QC): 3 (Pt able to thread BLE (completes threading L prior to R, thoug able to thread R with added time). Pt sit to stand and SPT with PT to w/c as OT pulls pants from knees over hips.max A donning RLE knee brace.) On/Off Footwear: 2 (max A: pt denies placing sock on soft sock aide, OT completes this task. Pt is able to place sock aide in proper position and complete threading of LLE. Pt requires added assist for RLE due to limited mobility/ strength, requiring max A RLE) Toileting Hygiene (QC): 4 (SBA= completes on sc leaning side to side.) Other Treatment Pt up in chair, agrees to shower. Pt is brought to shower, SPT to sc with PT assist (see notes). Pt completes showering/ dressing in shower/ on sc as outlined. Pt SPT to w/c with PT as OT addresses bottom drying/ pant hike. Pt in w/c and agrees to time in gym. Pt denies propelling self, once in gym pt visibly fatigued and places outstretched hand in firm position when asked if ready to complete tasks. Pt agrees to take a minute, then head goes into hand. Pt agrees to not feeling well, BP taken and is WNL. Pt desires to go back to room. Once positioned, pt vomits on pants/ in bucket. Requires ~15 minutes to relax and be able to complete fx tasks of reaching bed. SPT to bed and bed mob to sitting/ legs in bed with mod A. Pt then vomits again, cool cloth placed on pt, pt's pants doffed with TD (max A x2 with pt able to roll slightly to assist). Pt then positioned in bed for safety, all needs met, call light in reach, bucket placed to L side of pt. Education OT Patient Education: Correct positioning, Modified ADL techniques, Progress toward Goal/Update tx plan, Purpose of tx/functional activities, Safety issues, Transfer techniques, Use of adapted equipment Teaching Recipient: Patient Teaching Methods: Demonstration, Discussion Response to Teaching: Verbalize Understanding, Return Demonstration OT Short Term Goals Short Term Goals Time Frame: Oct 06, 2020 Eatin Oral hygiene: 3 Toileting hygiene: 3 Shower/bathe self: 3 Upper body dressin Lower body dressin Putting on/taking off footwear: 3 OT Alf Goals Bird Cage Assembler Goals Time Frame: Oct 20, 2020 Eating (QC): 6 Oral Hygiene (QC): 6 Toileting Hygiene (QC): 4 Shower/Bathe Self (QC): 4 Upper Body Dressing (QC): 5 Lower Body Dressing (QC): 4 On/Off Footwear (QC): 4 Additional Goals: 1-Demonstrate ADL Tasks, 2-Verbalize Understanding, 3- ImproveStrength/Jeramy 1=Demonstrate adherence to instructed precautions during ADL tasks. 2=Patient will verbalize/demonstrate understanding of assistive device s/modifications for ADL. 3=Patient will improve strength/tolerance for activity to enable patient to perform ADL's. OT Education/Plan Problem List/Assessment Assessment: Decreased Activ Tolerance, Decreased UE Strength, Dependent Transfers, Impaired Bed Mobility, Impaired Coordination, Impaired Funct Balance, Impaired I ADL's, Impaired Self-Care Skills, Restricted Funct UE ROM Discharge Recommendations Plan/Recommendations: Continue POC Therapy Discharge Recommendati: Home & Family, Post Acute OT Treatment Plan/Plan of Care Treatment,Training & Education: Yes Patient would benefit from OT for education, treatment and training to promote independence in ADL's, mobility, safety and/or upper extremity function for ADL's. Plan of Care: ADL Retraining, Functional Mobility, UE Funct Exercise/Act, UE Neuromus Re-Ed/Coord Treatment Duration: Oct 20, 2020 Frequency: At least 5 of 7 days/Wk (IRF) Estimated Hrs Per Day: 1.5 hours per day Agreement: Yes Rehab Potential: Good Time/GCodes Start Time: 09:00 Stop Time: 10:10 Total Time Billed (hr/min): 70 Billed Treatment Time 1, ADL 3 (45), FA 2 (25)= 70 GAVIN SHAH OTR Oct 07, 2020 12:10
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
--- NOTE | 2020-10-07 14:54 | Therapy Group Daily Note ---
Therapy Daily Group Note Patient Education Topic Other List Below (Memory & Memory Strategies) Exercises LE Seated Exercise, UE Exercise Session Ratio (pt:therapist): 4:1 Goal of Session: Education on ARU Expectations, Memory Strategies, UE/LE Strengthing Goal Met for this Session: Yes Pt Benefit of Group: Contributions to Others, F/U Use of Strategies @Home, Increased Functional Safety, Increased Functional Strength, Improved Cognition, Recognition of Peers, Socialization Other/Notes Pt was propelled to PT Group using [facility]. Group consisted of Introductions (Name, Where from & Favorite Winter or Snow time Activity), Socialization, Seated UE & LE Exercise as well as ARU Expectations and Memory Strategy with Activity/Game. Pt is not able to actively participate in Exercises as he was AAROM with RLE but AROM for LLE. Pt also has difficulty with naming Snow Time Activity as well as which number he wanted to match. Pt is able to match 1/3 in Memory game. Pt returns to room to rest in recliner after using BR at end of Group. All needs met, call light in hand. Start Time: 13:00 Stop Time: 14:00 Total Billed Treatment Time: 60 Total Billed Treatment 1, GRP BEVERLEYDWAIN [place] [employer] SAFETY PROGRAM COORDINATOR Oct 07, 2020 14:54
[2020-10-07 17:30] VITALS: BP 124/79
[2020-10-07] MEDS: DOXYCYCLINE 100 MG (VIBRAMYCIN) TABLET PO SCH (20:32)
[2020-10-07] MEDS: ZONISAMIDE 100 MG CAP (ZONEGRAN) NON-FORMULARY PO SCH (20:34)
[2020-10-08 05:23] VITALS: BP 118/72
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
[2020-10-08] MEDS: ONDANSETRON 4 MG (ZOFRAN) ORAL DISSOLVE TAB PO SCH (08:03)
--- NOTE | 2020-10-08 09:13 | Physical Therapy Daily Note ---
PT Daily Note-Current Subjective Pt laying Supine in bed. Pt agrees to PT for Ex but declines need for BR. Pain Location: No Pain Reported Mental Status Patient Orientation: Person, Place, Non-Verbal/Aphasic, Situation Attachments: Other-See Comments (R knee brace) Transfers SCALE: Activities may be completed with or without assistive devices. 7-Sakplfujtx-spydtgt completes the activity by him/herself with no assistance from a helper. 5-Set-up or Clean-up Assistance-helper sets up or cleans up; patient completes activity. [place] assists only prior to or following the activity. 4-Supervision or Touching Assistance-helper provides verbal cues and/or touching/steadying and/or contact guard assistance as patient completes activity. Assistance may be provided throughout the activity or intermittently. 3-Partial/Moderate Assistance-helper does LESS THAN HALF the effort. [place] lifts, holds or supports trunk or limbs, but provides less than half the effort. 2-Substantial/Maximal Assistance-helper does MORE THAN HALF the effort. [place] lifts or holds trunk or limbs and provides more than half the effort. 6-Decctfkak-vlpjxd does ALL the effort. Patient does none of the effort to complete the activity. Or, the assistance of 2 or more helpers is required for the patient to complete the activity. If activity was not attempted, code reason: 7-Patient Refused. 9-Not Applicable-not attempted and the patient did not perform the activity before the current illness, exacerbation or injury. 10-Not Attempted due to Environmental Limitations-(lack of equipment, weather restraints, etc.). 88-Not Attempted due to Medical Conditions or Safety Concerns. Weight Bearing Right Lower Extremity: Right Weight Bearing/Tolerated Left Lower Extremity: Left Full Weight Bearing right leg brace to be on at all times, knee flexion limited to 90 degrees. Ok to begin WB on R on 09/29/20. Exercises Supine Ex: Ankle pumps, Quad Set, Glut sets, Heel Slides, Straight leg raise, Hip abd/add Supine Reps: 15 (AAROM or RLE) Treatments Pt completes Supine Ex and repositions self in be to comfort. All needs met, call light next to pt. Assessment Current Status: Good Progress Pt lissy. tx well. PT Short Term Goals Short Term Goals Time Frame: Sep 29, 2020 Roll Left & Right: 4 Sit to lyin Lying to sitting on side of be: 4 Sit to stand: 4 Chair/zuv-vs-aijbk transfer: 4 Wheel 50ft w/2 turns: 4 Wheel 150 feet: 4 PT Paper Maker Goals Paper Maker Goals PT Nursing Home Goals Time Frame: Oct 13, 2020 Roll Left & Right (QC): 4 (SBA) Sit to Lying (QC): 4 (SBA) Lying-Sitting on Side/Bed(QC): 4 (SBA) Sit to Stand (QC): 4 (SBA) Chair/Kbk-qr-Wmryl Xfer(QC): 4 (SBA) Toilet Transfer (QC): 4 (SBA) Car Transfer (QC): 4 (SBA) Does the Patient Walk: No and Walking Goal NOT indicated Walk 10 feet (QC): 88 Walk 50ft with 2 Turns (QC): 88 Walk 150 ft (QC): 88 Walking 10ft on Uneven Surface: 88 1 Step (curb) (QC): 88 4 Steps (QC): 88 12 Steps (QC): 88 Picking up an Object (QC): 88 Wheel 50 feet with 2 turns (QC: 6 Wheel 150 feet: 6 PT Plan Problem List Problem List: Activity Tolerance, Functional Strength Treatment/Plan Treatment Plan: Continue Plan of Care Treatment Plan: Bed Mobility, Education, Functional Activity Jeramy, Functional Strength, Group Therapy, Gait, Safety, Therapeutic Exercise, Transfers Treatment Duration: Oct 13, 2020 Frequency: At least 5 of 7 days/Wk (IRF) Estimated Hrs Per Day: 1.5 hours per day Patient and/or Family Agrees t: Yes Safety Risks/Education Patient Education: Correct Positioning, Reviewed Don/Doff Brace, Safety Issues Teaching Recipient: Patient Teaching Methods: Discussion Response to Teaching: Verbalize Understanding Time/GCodes Time In: 850 Time Out: 910 Total Billed Treatment Time: 20 Total Billed Treatment 1, EX (20m) DWAIN ELDER PTA Oct 08, 2020 09:13
[2020-10-08] MEDS: LACOSAMIDE 100 MG PO SCH ×2 (09:26→20:24)
[2020-10-08] MEDS: APIXABAN 5 MG (ELIQUIS) TABLET PO SCH ×2 (09:27→20:25)
[2020-10-08] MEDS: PANTOPRAZOLE 40 MG (PROTONIX) TAB PO SCH (09:27)
[2020-10-08] MEDS: VIMPAT 200 MG TABLET PO SCH ×2 (09:27→20:24)
[2020-10-08] MEDS: FLUoxetine HCL 20 MG (PROzac) CAP PO SCH (09:27)
[2020-10-08 17:51] VITALS: BP 123/70
[2020-10-08] MEDS: ZONISAMIDE 100 MG CAP (ZONEGRAN) NON-FORMULARY PO SCH (20:23)
[2020-10-08] MEDS: ONDANSETRON 4 MG (ZOFRAN) ORAL DISSOLVE TAB PO PRN (20:25)
[2020-10-08] MEDS: DOXYCYCLINE 100 MG (VIBRAMYCIN) TABLET PO SCH (20:25)
[2020-10-09 05:04] VITALS: BP 117/67
[2020-10-09] MEDS: ONDANSETRON 4 MG (ZOFRAN) ORAL DISSOLVE TAB PO SCH (07:28)
[2020-10-09] MEDS: VIMPAT 200 MG TABLET PO SCH ×2 (08:07→20:44)
[2020-10-09] MEDS: LACOSAMIDE 100 MG PO SCH ×2 (08:07→20:44)
[2020-10-09] MEDS: PANTOPRAZOLE 40 MG (PROTONIX) TAB PO SCH (08:07)
[2020-10-09] MEDS: FLUoxetine HCL 20 MG (PROzac) CAP PO SCH (08:07)
[2020-10-09] MEDS: SENNA W/DOCUSATE (SENOKOT S) TABLET PO PRN (08:07)
[2020-10-09] MEDS: DOCUSATE SODIUM 100 MG (COLACE) CAP PO PRN (08:07)
[2020-10-09] MEDS: APIXABAN 5 MG (ELIQUIS) TABLET PO SCH ×2 (08:07→20:42)
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
[2020-10-09 16:50] VITALS: BP 115/75
[2020-10-09] MEDS: DOXYCYCLINE 100 MG (VIBRAMYCIN) TABLET PO SCH (20:42)
[2020-10-09] MEDS: ONDANSETRON 4 MG (ZOFRAN) ORAL DISSOLVE TAB PO PRN (20:42)
[2020-10-09] MEDS: ZONISAMIDE 100 MG CAP (ZONEGRAN) NON-FORMULARY PO SCH (20:43)
[2020-10-10 05:06] VITALS: BP 111/64
[2020-10-10 07:04] LABS: BASOPHILS % (AUTO) 0 % (0-10); EOSINOPHILS # (AUTO) 0.1 10^3/uL (0.0-0.3); EOSINOPHILS % (AUTO) 1 % (0-10); HEMATOCRIT 46 % (40-54); HEMOGLOBIN 15.8 g/dL (13.3-17.7); LYMPHOCYTES # (AUTO) 1.6 10^3/uL (1.0-4.0); LYMPHOCYTES % (AUTO) 30 % (12-44); MEAN CORPUSCULAR HEMOGLOBIN 31 pg (25-34); MEAN CORPUSCULAR HGB CONC 34 g/dL (32-36); MEAN CORPUSCULAR VOLUME 92 fL (80-99); MEAN PLATELET VOLUME 11.1 fL (9.0-12.2); MONOCYTES # (AUTO) 0.4 10^3/uL (0.0-1.0); MONOCYTES % (AUTO) 7 % (0-12); NEUTROPHILS # (AUTO) 3.2 10^3/uL (1.8-7.8); NEUTROPHILS % (AUTO) 61 % (42-75); PLATELET COUNT 144 10^3/uL (130-400); WHITE BLOOD COUNT 5.2 10^3/uL (4.3-11.0)
[2020-10-10 07:12] LABS: CHLORIDE 104 MMOL/L (98-107); POTASSIUM 3.6 MMOL/L (3.6-5.0); SODIUM 138 MMOL/L (135-145)
[2020-10-10 07:14] LABS: GLUCOSE 92 MG/DL (70-105)
[2020-10-10 07:15] LABS: TOTAL PROTEIN 6.6 GM/DL (6.4-8.2)
[2020-10-10 07:16] LABS: BILIRUBIN,TOTAL 0.6 MG/DL (0.1-1.0); CARBON DIOXIDE 25 MMOL/L (21-32)
[2020-10-10 07:18] LABS: ALKALINE PHOSPHATASE 63 U/L (40-136); CREATININE SERUM 0.92 MG/DL (0.60-1.30); GFR ESTIMATED > 60
[2020-10-10 07:19] LABS: BUN/CREATININE RATIO 10
[2020-10-10 07:21] LABS: ALANINE AMINOTRANSFERASE 113 U/L (0-55)
[2020-10-10] MEDS: ONDANSETRON 4 MG (ZOFRAN) ORAL DISSOLVE TAB PO SCH (09:13)
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
[2020-10-10] MEDS: FLUoxetine HCL 20 MG (PROzac) CAP PO SCH (09:14)
[2020-10-10] MEDS: PANTOPRAZOLE 40 MG (PROTONIX) TAB PO SCH (09:14)
[2020-10-10] MEDS: APIXABAN 5 MG (ELIQUIS) TABLET PO SCH ×2 (09:14→21:30)
[2020-10-10] MEDS: LACOSAMIDE 100 MG PO SCH ×2 (09:15→21:27)
[2020-10-10] MEDS: VIMPAT 200 MG TABLET PO SCH ×2 (09:15→21:27)
--- NOTE | 2020-10-10 10:35 | Physical Therapy Daily Note ---
PT Daily Note-Current Subjective Patient in therapy gym pre tx, agrees to PT, has no complaints of pain. Will be co-treating with OT due to poor patient mobility, strength, endurance, right hemiparesis, the need to coordinate UE and LE during activity. Appearance Patient in recliner post tx with nurse call, phone, tray, all needs met. Mental Status Patient Orientation: Person, Unable to Assess, Non-Verbal/Aphasic right leg brace Transfers SCALE: Activities may be completed with or without assistive devices. 7-Cqkqfmbpad-vbijmvt completes the activity by him/herself with no assistance from a helper. 5-Set-up or Clean-up Assistance-helper sets up or cleans up; patient completes activity. [place] assists only prior to or following the activity. 4-Supervision or Touching Assistance-helper provides verbal cues and/or touching/steadying and/or contact guard assistance as patient completes activity. Assistance may be provided throughout the activity or intermittently. 3-Partial/Moderate Assistance-helper does LESS THAN HALF the effort. [place] lifts, holds or supports trunk or limbs, but provides less than half the effort. 2-Substantial/Maximal Assistance-helper does MORE THAN HALF the effort. [place] lifts or holds trunk or limbs and provides more than half the effort. 2-Tpfkgvtgn-capuxz does ALL the effort. Patient does none of the effort to complete the activity. Or, the assistance of 2 or more helpers is required for the patient to complete the activity. If activity was not attempted, code reason: 7-Patient Refused. 9-Not Applicable-not attempted and the patient did not perform the activity before the current illness, exacerbation or injury. 10-Not Attempted due to Environmental Limitations-(lack of equipment, weather restraints, etc.). 88-Not Attempted due to Medical Conditions or Safety Concerns. Roll Left & Right (QC): 3 Sit to Lying (QC): 3 Lying to Sitting/Side of Bed(Q: 3 Sit to Stand (QC): 4 Chair/Hfo-ca-Kpshg Xfer(QC): 4 Weight Bearing Right Lower Extremity: Right Weight Bearing/Tolerated Left Lower Extremity: Left Full Weight Bearing right leg brace to be on at all times, knee flexion limited to 90 degrees. Ok to begin WB on R on 09/29/20. Gait Training Distance: 150' Gait Persons Needed: 2 Patient ambulated in the litegait (weight supported gait system) to work on ambulation and concentrate on advancement of right leg. Patient needed max assist to advance his right leg. Exercises standing at parallel bars practicing weight bearing through right leg, he is able to bear a little weight on it but it ravi with more than 50%. Treatments gait training, balance training Assessment Current Status: Fair Progress improving standing balance PT Short Term Goals Short Term Goals Time Frame: Sep 29, 2020 Roll Left & Right: 4 Sit to lyin Lying to sitting on side of be: 4 Sit to stand: 4 Chair/cia-gb-kkgvt transfer: 4 Wheel 50ft w/2 turns: 4 Wheel 150 feet: 4 PT Residential Goals Residential Goals PT Frame Aligner Goals Time Frame: Oct 13, 2020 Roll Left & Right (QC): 4 (SBA) Sit to Lying (QC): 4 (SBA) Lying-Sitting on Side/Bed(QC): 4 (SBA) Sit to Stand (QC): 4 (SBA) Chair/Svk-ec-Aoddc Xfer(QC): 4 (SBA) Toilet Transfer (QC): 4 (SBA) Car Transfer (QC): 4 (SBA) Does the Patient Walk: No and Walking Goal NOT indicated Walk 10 feet (QC): 88 Walk 50ft with 2 Turns (QC): 88 Walk 150 ft (QC): 88 Walking 10ft on Uneven Surface: 88 1 Step (curb) (QC): 88 4 Steps (QC): 88 12 Steps (QC): 88 Picking up an Object (QC): 88 Wheel 50 feet with 2 turns (QC: 6 Wheel 150 feet: 6 PT Plan Problem List Problem List: Activity Tolerance, Functional Strength, Safety, Balance, Gait, Transfer, Bed Mobility, ROM Treatment/Plan Treatment Plan: Continue Plan of Care Treatment Plan: Bed Mobility, Education, Functional Activity Jeramy, Functional Strength, Group Therapy, Gait, Safety, Therapeutic Exercise, Transfers Treatment Duration: Oct 13, 2020 Frequency: At least 5 of 7 days/Wk (IRF) Estimated Hrs Per Day: 1.5 hours per day Patient and/or Family Agrees t: Yes Safety Risks/Education Patient Education: Gait Training, Transfer Techniques, Correct Positioning, W/C Management, Safety Issues Teaching Recipient: Patient Teaching Methods: Demonstration, Discussion Response to Teaching: Reinforcement Needed Time/GCodes Time In: 0900 Time Out: 1000 Total Billed Treatment Time: 60 Total Billed Treatment 1 visit NM 30' GT 30' co-treated with OT for 60'. PT worked on gait training, balance training, sit to stand, transfers, OT worked on UE positioning and safety during standing and ambulation RACHEL LOPEZ PT Oct 10, 2020 10:35
--- NOTE | 2020-10-10 13:39 | Speech Therapy Daily Note ---
Speech Daily Progress Note Subjective Date Seen by Provider: Oct 10, 2020 Time Seen by Provider: 00:30 Patient was sitting up in his recliner watching television when I entered his room. Objective The patient was able to complete confrontational naming task with safety awareness picture cards by expressing what was unsafe in each one with 60% spontaneous speech given minimal cues. Assessment Assessment Current Status: Good Progress Treatment Plan Continue Plan of Care Speech Short Term Goals Short Term Goals Short Term Goals 1) Patient will tolerate least restrictive diet level without s/s of aspiration at 80% or greater with minimal cues. 2) Patient will utilize compensatory strategies as trained at 80% or greater with minima cues. 3) Patient will follow multi step commands with 90% or greater with minimal cues. 4) Patient will utilize communication board to assist with meeting wants/needs with moderate cue.s Speech Long-Term Goals Long-Term Goals Patient will maintain adequate nutrition/hydration via safe effective swallow function. Patient will participate in ongoing assessment for functional level of language abilities. Speech-Plan Patient/Family Goals Patient/Family Goals: Patient plans on returning to his home where he will have family and friends available for assist with daily needs. Treatment Plan Speech Therapy Treatment Plan: Continue Plan of Care Treatment Duration: Oct 12, 2020 Frequency: 4 times per week (Patient will receive skilled ST 4 to 5x per week) Estimated Hrs Per Day: .5 hour per day Rehab Potential: Good Barriers to Learning: Patient's prior head injury, CVA with expressive language barrier Pt/Family Agrees to Plan: Yes Safety Risks/Education Teaching Recipient: Patient Teaching Methods: Demonstration, Discussion Response to Teaching: Verbalize Understanding, Return Demonstration Education Topics Provided: Continued safety within his room, continued safety with oral intake Time Speech Therapy Time In: 10:30 Speech Therapy Time Out: 11:00 Total Billed Time: 30 Billed Treatment Time 1, REID FLOR[address] Oct 10, 2020 13:39
--- NOTE | 2020-10-10 14:06 | Physical Therapy Daily Note ---
PT Daily Note-Current Subjective Pt.up in recliner sleeping, awakens when entered room and agrees to therex RU&L ext and requests IRPM brace be pulled up and tightened. During Rx pt. was asked if he felt he was making progress. Pt. rolled his eyes and stated "It sucks" Pain Location: No Pain Reported Mental Status Patient Orientation: Non-Verbal/Aphasic Attachments: Other-See Comments (right knee immobl) Transfers SCALE: Activities may be completed with or without assistive devices. 2-Qtubxtjxbk-vrzeujv completes the activity by him/herself with no assistance from a helper. 5-Set-up or Clean-up Assistance-helper sets up or cleans up; patient completes activity. [place] assists only prior to or following the activity. 4-Supervision or Touching Assistance-helper provides verbal cues and/or touching/steadying and/or contact guard assistance as patient completes activity. Assistance may be provided throughout the activity or intermittently. 3-Partial/Moderate Assistance-helper does LESS THAN HALF the effort. [place] lifts, holds or supports trunk or limbs, but provides less than half the effort. 2-Substantial/Maximal Assistance-helper does MORE THAN HALF the effort. [place] lifts or holds trunk or limbs and provides more than half the effort. 0-Ttfynxaxd-fuushm does ALL the effort. Patient does none of the effort to complete the activity. Or, the assistance of 2 or more helpers is required for the patient to complete the activity. If activity was not attempted, code reason: 7-Patient Refused. 9-Not Applicable-not attempted and the patient did not perform the activity before the current illness, exacerbation or injury. 10-Not Attempted due to Environmental Limitations-(lack of equipment, weather restraints, etc.). 88-Not Attempted due to Medical Conditions or Safety Concerns. pt. put head of chair in fully reclined position and used LLE and LUE to push himself up in the recliner as he had slid down. Weight Bearing Right Lower Extremity: Right Weight Bearing/Tolerated Left Lower Extremity: Left Full Weight Bearing right leg brace to be on at all times, knee flexion limited to 90 degrees. Ok to begin WB on R on 09/29/20. Exercises Supine Ex: Ankle pumps (HC stretch L), Quad Set, Glut sets, Heel Slides (assisted right), Scooting, Straight leg raise (assisted right), Hip abd/add (assisted right) Supine Reps: 15 Assessment Current Status: Fair Progress pt. appears depressed this date PT Short Term Goals Short Term Goals Time Frame: Sep 29, 2020 Roll Left & Right: 4 Sit to lyin Lying to sitting on side of be: 4 Sit to stand: 4 Chair/wff-qw-ydiuw transfer: 4 Wheel 50ft w/2 turns: 4 Wheel 150 feet: 4 PT Computer Aided Design Operator Goals Computer Aided Design Operator Goals PT [facility] Goals Time Frame: Oct 13, 2020 Roll Left & Right (QC): 4 (SBA) Sit to Lying (QC): 4 (SBA) Lying-Sitting on Side/Bed(QC): 4 (SBA) Sit to Stand (QC): 4 (SBA) Chair/Ilc-wk-Alpxl Xfer(QC): 4 (SBA) Toilet Transfer (QC): 4 (SBA) Car Transfer (QC): 4 (SBA) Does the Patient Walk: No and Walking Goal NOT indicated Walk 10 feet (QC): 88 Walk 50ft with 2 Turns (QC): 88 Walk 150 ft (QC): 88 Walking 10ft on Uneven Surface: 88 1 Step (curb) (QC): 88 4 Steps (QC): 88 12 Steps (QC): 88 Picking up an Object (QC): 88 Wheel 50 feet with 2 turns (QC: 6 Wheel 150 feet: 6 PT Plan Treatment/Plan Treatment Plan: Continue Plan of Care Treatment Plan: Bed Mobility, Education, Functional Activity Jeramy, Functional Strength, Group Therapy, Gait, Safety, Therapeutic Exercise, Transfers Treatment Duration: Oct 13, 2020 Frequency: At least 5 of 7 days/Wk (IRF) Estimated Hrs Per Day: 1.5 hours per day Patient and/or Family Agrees t: Yes Safety Risks/Education Patient Education: Correct Positioning Time/GCodes Time In: 1345 Time Out: 1400 Total Billed Treatment Time: 15 Total Billed Treatment 1,EX15m GEORGE VILLEGAS [employer] Oct 10, 2020 14:06
--- NOTE | 2020-10-10 15:30 | Occupational Ther Daily Note ---
OT Current Status-Daily Note Subjective No pain reported. Appearance Pt. up in chair. Agrees to work with OT. Mental Status/Objective Patient Orientation: Person, Place ADL-Treatment Therapy Code Descriptions/Definitions Functional [place] Measure: 0=Not Assessed/NA 4=Minimal Assistance 1=Total Assistance 5=Supervision or Setup 2=Maximal Assistance 6=Modified [place] 3=Moderate Assistance 7=Complete IndependenceSCALE: Activities may be completed with or without assistive devices. 9-Mpttntomph-tldsucm completes the activity by him/herself with no assistance from a helper. 5-Set-up or Clean-up Assistance-helper sets up or cleans up; patient completes activity. [place] assists only prior to or following the activity. 4-Supervision or Touching Assistance-helper provides verbal cues and/or touching/steadying and/or contact guard assistance as patient completes activity. Assistance may be provided throughout the activity or intermittently. 3-Partial/Moderate Assistance-helper does LESS THAN HALF the effort. [place] lifts, holds or supports trunk or limbs, but provides less than half the effort. 2-Substantial/Maximal Assistance-helper does MORE THAN HALF the effort. [place] lifts or holds trunk or limbs and provides more than half the effort. 9-Zbumnfdxb-ugrjyi does ALL the effort. Patient does none of the effort to complete the activity. Or, the assistance of 2 or more helpers is required for the patient to complete the activity. If activity was not attempted, code reason: 7-Patient Refused. 9-Not Applicable-not attempted and the patient did not perform the activity before the current illness, exacerbation or injury. 10-Not Attempted due to Environmental Limitations-(lack of equipment, weather restraints, etc.). 88-Not Attempted due to Medical Conditions or Safety Concerns. On/Off Footwear: 3 (Mod assist overall. Pt. able to doff slipper socks with SBA, and then don regular socks with effort, with SBA. He is able to don left shoe, but requires assistance to tie. Pt. unable to don right shoe.) Toileting Hygiene (QC): 3 (Mod assist in stance. Pt. indicates that he needs to urinate and wants to stand to use his urinal. OT assists pt. with standing, and then pt. is able to pull down shorts somewhat. OT places urinal for pt. Pt. able to pull up shorts after he has urinated.) Other Treatment Pt. up in chair. Pt. agrees to work with OT. Pt. states that he showered yesterday, and would like to shower tomorrow. Pt. practices donning footwear without use of AE. Transfers to wheelchair in room with min assist. Pt. self propels to therapy gym. At this time, OT/PT co-treat due to need of skilled assistance x 2. OT assessed UE, weight shifts in stance, and right sided awareness while PT assessed mobility and transfers, as well as LE. Pt. stood multiple times at bar with min assist at first, and then SBA. Pt. worked on weight shifting, placing weight through right LE, and dynamic standing balance without holding onto bar. Pt's balance has improved. He is still unable to bear complete weight through right LE without assist to block right knee. OT provided gentle stretch to right UE in all planes. No active movement noted at this time. Pt. in Lite Gait machine with full assist to propel right LE through, for stepping. Pt. able to shift weight to right to take step with left LE, but unable to move right LE forward when shifting weight onto left. All needs are met back in room, and pt. in chair. Education OT Patient Education: Correct positioning, Modified ADL techniques, Progress toward Goal/Update tx plan, Purpose of tx/functional activities, Reviewed precautions, Rehab process, Transfer techniques Teaching Recipient: Patient Teaching Methods: Demonstration, Discussion Response to Teaching: Verbalize Understanding, Return Demonstration, Reinforcement Needed OT Short Term Goals Short Term Goals Time Frame: Oct 06, 2020 Eatin Oral hygiene: 3 Toileting hygiene: 3 Shower/bathe self: 3 Upper body dressin Lower body dressin Putting on/taking off footwear: 3 OT [employer] Goals [facility] Goals Time Frame: Oct 20, 2020 Eating (QC): 6 Oral Hygiene (QC): 6 Toileting Hygiene (QC): 4 Shower/Bathe Self (QC): 4 Upper Body Dressing (QC): 5 Lower Body Dressing (QC): 4 On/Off Footwear (QC): 4 Additional Goals: 1-Demonstrate ADL Tasks, 2-Verbalize Understanding, 3- ImproveStrength/Jeramy 1=Demonstrate adherence to instructed precautions during ADL tasks. 2=Patient will verbalize/demonstrate understanding of assistive devices/modifications for ADL. 3=Patient will improve strength/tolerance for activity to enable patient to perform ADL's. OT Education/Plan Problem List/Assessment Assessment: Decreased Activ Tolerance, Decreased UE Strength, Dependent Transfers, Impaired Bed Mobility, Impaired Funct Balance, Impaired I ADL's, Impaired Self-Care Skills, Restricted Funct UE ROM Discharge Recommendations Plan/Recommendations: Continue POC Therapy Discharge Recommendati: Scheduled Assistance, Home & Family, Post Acute OT Treatment Plan/Plan of Care Treatment,Training & Education: Yes Patient would benefit from OT for education, treatment and training to promote independence in ADL's, mobility, safety and/or upper extremity function for ADL's. Plan of Care: ADL Retraining, Functional Mobility, UE Funct Exercise/Act, UE Neuromus Re-Ed/Coord Treatment Duration: Oct 20, 2020 Frequency: At least 5 of 7 days/Wk (IRF) Estimated Hrs Per Day: 1.5 hours per day Agreement: Yes Rehab Potential: Good Time/GCodes Start Time: 08:45 Stop Time: 10:00 Total Time Billed (hr/min): 75 Billed Treatment Time 7429-9633 1, ADL x 15minutes 1239-5657 FA x 60minutes AMISH ROBERTO OT Oct 10, 2020 15:30
--- NOTE | 2020-10-10 17:47 | NUR ---
"RD ASSESSMENT PMHx: TBI, seizure disorder; stroke; PT INTERACTION: Pt was awake and pleasant during nutrition follow-up. Pt states he has been eating good since last assessment. Note avg PO intake 50-75% x4d, per chart review. Pt states no issues with n/v/c/d since last assessment. Note 1 episode of emesis on 10/06, per chart review. Note last BM was 10/10, and pt currently on bowel regimen of colace PRN, senna PRN, miralax PRN, and bisacodyl PRN, per chart review. Est. kcal needs: 5651-9370 kcal | 15-18 kcal/kg Est. Pro needs: 92-115 g Pro | 0.8-1.0 g Pro/kg PES STATEMENT: Inadequate oral intake (NI-2.1) related to loss of appetite, and vomiting, as evidenced by pt interview, and avg PO intake 50-75% x4d. INTERVENTION: Continue with current diet order of Regular diet. Pt may benefit from nutrition supplementation if PO intake declines. Encouraged pt to eat when able. Will continue to follow and reassess as pt needs, intake, and status change. Freedom BAEZA, MS RD LD [phone] cell"
[2020-10-10 17:53] VITALS: BP 125/75
--- NOTE | 2020-10-10 19:14 | NUR ---
Bedside report received from ANN MARIE HOANG, assume care of pt
[2020-10-10] MEDS: ONDANSETRON 4 MG (ZOFRAN) ORAL DISSOLVE TAB PO PRN (20:06)
--- NOTE | 2020-10-10 20:06 | NUR ---
Zofran 4mg given to prevent nausea from hs meds
[2020-10-10] MEDS: ZONISAMIDE 100 MG CAP (ZONEGRAN) NON-FORMULARY PO SCH (21:28)
[2020-10-10] MEDS: DOXYCYCLINE 100 MG (VIBRAMYCIN) TABLET PO SCH (21:29)
--- NOTE | 2020-10-10 21:30 | NUR ---
meds given whole with water, tolerated well
[2020-10-11 06:00] VITALS: BP 104/68
[2020-10-11] MEDS: ONDANSETRON 4 MG (ZOFRAN) ORAL DISSOLVE TAB PO SCH (08:45)
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
--- NOTE | 2020-10-11 09:55 | Occupational Ther Daily Note ---
OT Current Status-Daily Note Subjective No pain reported. Appearance Pt. up in reclining chair in room. Alert and oriented. Pt. agrees to work with OT. Mental Status/Objective Patient Orientation: Person, Place ADL-Treatment Therapy Code Descriptions/Definitions Functional [place] Measure: 0=Not Assessed/NA 4=Minimal Assistance 1=Total Assistance 5=Supervision or Setup 2=Maximal Assistance 6=Modified [place] 3=Moderate Assistance 7=Complete IndependenceSCALE: Activities may be completed with or without assistive devices. 7-Lpmgoewleh-nnjnfva completes the activity by him/herself with no assistance from a helper. 5-Set-up or Clean-up Assistance-helper sets up or cleans up; patient completes activity. [place] assists only prior to or following the activity. 4-Supervision or Touching Assistance-helper provides verbal cues and/or touching/steadying and/or contact guard assistance as patient completes activity. Assistance may be provided throughout the activity or intermittently. 3-Partial/Moderate Assistance-helper does LESS THAN HALF the effort. [place] lifts, holds or supports trunk or limbs, but provides less than half the effort. 2-Substantial/Maximal Assistance-helper does MORE THAN HALF the effort. [place] lifts or holds trunk or limbs and provides more than half the effort. 0-Zbxgppvtz-xpxaej does ALL the effort. Patient does none of the effort to complete the activity. Or, the assistance of 2 or more helpers is required for the patient to complete the activity. If activity was not attempted, code reason: 7-Patient Refused. 9-Not Applicable-not attempted and the patient did not perform the activity before the current illness, exacerbation or injury. 10-Not Attempted due to Environmental Limitations-(lack of equipment, weather restraints, etc.). 88-Not Attempted due to Medical Conditions or Safety Concerns. Shower/Bathe Self (QC): 3 (Min assist in stance for balance, and to dry bottom.) Upper Body Dressing (QC): 4 (SBA to doff/don shirt.) Lower Body Dressing (QC): 3 (Mod assist overall. Pt. is able to don shorts over right LE by dropping shorts to ground, lifting right LE with left hand, and bending over to thread. He is able to get left LE into shorts, and then requires assistance in stanc to assembler for puller over hand hips.) On/Off Footwear: 3 (Mod assist this date with shoes and socks. OT will apply elastic laces to shoes to make application easier.) Pt. seen for partial co-treatment with PT to work on higher level balance with skill of 2 clinicians. PT assessed right LE in stance while OT positioned right UE and assisted with weight shifts. Pt. stood several times with reyna cane, and ambulated with assistance for right LE advancement, weight shift, and wheelchair follow. Please see PT note for distance ambulated. Stood with min assist. Pt. transferred to wheelchair and went to therapy gym. Stood multiple times at bar and able to balance self with PT facilitating right LE. While in stance, OT encouraged dynamic standing balance with reaching using left UE. Pt. able to do this several times, but had difficulty in shifting weight without holding on. Practiced supine to/from sit on mat with encouragement to put left LE behind right LE, to lift onto and off of mat. OT introduced leg granite installer and educated pt. Pt. wanted to try without and was able to do it with increased time and some difficulty. OT session ended in gym with pt. still being with PT. Education OT Patient Education: Correct positioning, Modified ADL techniques, Progress toward Goal/Update tx plan, Purpose of tx/functional activities, Reviewed precautions, Rehab process, Transfer techniques Teaching Recipient: Patient Teaching Methods: Demonstration, Discussion Response to Teaching: Verbalize Understanding, Return Demonstration, Reinforcement Needed OT Short Term Goals Short Term Goals Time Frame: Oct 06, 2020 Eatin Oral hygiene: 3 Toileting hygiene: 3 Shower/bathe self: 3 Upper body dressin Lower body dressin Putting on/taking off footwear: 3 OT [facility] Goals [facility] Goals Time Frame: Oct 20, 2020 Eating (QC): 6 Oral Hygiene (QC): 6 Toileting Hygiene (QC): 4 Shower/Bathe Self (QC): 4 Upper Body Dressing (QC): 5 Lower Body Dressing (QC): 4 On/Off Footwear (QC): 4 Additional Goals: 1-Demonstrate ADL Tasks, 2-Verbalize Understanding, 3- ImproveStrength/Jeramy 1=Demonstrate adherence to instructed precautions during ADL tasks. 2=Patient will verbalize/demonstrate understanding of assistive devices/modifications for ADL. 3=Patient will improve strength/tolerance for activity to enable patient to perform ADL's. OT Education/Plan Problem List/Assessment Assessment: Decreased Activ Tolerance, Decreased UE Strength, Dependent Transfers, Impaired Funct Balance, Impaired I ADL's, Impaired Self-Care Skills, Restricted Funct UE ROM Discharge Recommendations Plan/Recommendations: Continue POC Therapy Discharge Recommendati: Home & Family, Post Acute OT Treatment Plan/Plan of Care Treatment,Training & Education: Yes Patient would benefit from OT for education, treatment and training to promote independence in ADL's, mobility, safety and/or upper extremity function for ADL's. Plan of Care: ADL Retraining, Functional Mobility, UE Funct Exercise/Act, UE Neuromus Re-Ed/Coord Treatment Duration: Oct 20, 2020 Frequency: At least 5 of 7 days/Wk (IRF) Estimated Hrs Per Day: 1.5 hours per day Agreement: Yes Rehab Potential: Good Time/GCodes Start Time: 08:30 Stop Time: 09:45 Total Time Billed (hr/min): 75 Billed Treatment Time 1094-4216 1, ADL x 30minutes 7919-3053 FA x 45minutes, co-treatment with PT. Please see above note for designated roles. AMISH ROBERTO OT Oct 11, 2020 09:55
--- NOTE | 2020-10-11 09:59 | Physical Therapy Daily Note ---
PT Daily Note-Current Subjective Patient in room pre tx, agrees to PT, has already been working with OT for a bit. Will be co-treating with OT due to poor patient mobility, strength, endurance, right hemiparesis, the need to coordinate UE and LE during activity, safety and reduce risk of falls. Appearance Patient in recliner post tx with nurse call, phone, tray, all needs met, legs elevated. Mental Status Patient Orientation: Person, Unable to Assess, Non-Verbal/Aphasic right leg brace Transfers SCALE: Activities may be completed with or without assistive devices. 9-Rtdaeizwgf-ilhvpyp completes the activity by him/herself with no assistance from a helper. 5-Set-up or Clean-up Assistance-helper sets up or cleans up; patient completes activity. [place] assists only prior to or following the activity. 4-Supervision or Touching Assistance-helper provides verbal cues and/or touching/steadying and/or contact guard assistance as patient completes activity. Assistance may be provided throughout the activity or intermittently. 3-Partial/Moderate Assistance-helper does LESS THAN HALF the effort. [place] lifts, holds or supports trunk or limbs, but provides less than half the effort. 2-Substantial/Maximal Assistance-helper does MORE THAN HALF the effort. [place] lifts or holds trunk or limbs and provides more than half the effort. 6-Mkqnpkmcy-nfpxci does ALL the effort. Patient does none of the effort to complete the activity. Or, the assistance of 2 or more helpers is required for the patient to complete the activity. If activity was not attempted, code reason: 7-Patient Refused. 9-Not Applicable-not attempted and the patient did not perform the activity before the current illness, exacerbation or injury. 10-Not Attempted due to Environmental Limitations-(lack of equipment, weather restraints, etc.). 88-Not Attempted due to Medical Conditions or Safety Concerns. Sit to Stand (QC): 4 Chair/Vee-fp-Mltwq Xfer(QC): 4 Weight Bearing Right Lower Extremity: Right Weight Bearing/Tolerated Left Lower Extremity: Left Full Weight Bearing right leg brace to be on at all times, knee flexion limited to 90 degrees. Ok to begin WB on R on 09/29/20. Gait Training Distance: 50'x2 Walk 10 feet (QC): 3 Walk 50 ft with 2 Turns(QC): 3 Gait Assistive Device: Walker Mikey mod assist to maintain balance and advance his right leg with therapist assist, WC follow Wheelchair Training Does the Pt Use a Wheelchair?: Yes Wheel 50 ft with 2 turns (QC): 4 Wheel 150 ft (QC): 4 Type of Wheelchair: Manual Exercises Standing: Sit to Stand (2 sets of 10) standing in parallel bars balance training, weight shifting Treatments PT worked on transfers, ambulation, WC mobility, standing balance, sit to stands , OT worked on UE positioning and safety during activity and balance training Assessment Current Status: Fair Progress still not able to advance his right leg on his own. PT Short Term Goals Short Term Goals Time Frame: Sep 29, 2020 Roll Left & Right: 4 Sit to lyin Lying to sitting on side of be: 4 Sit to stand: 4 Chair/lkm-uw-qlkla transfer: 4 Wheel 50ft w/2 turns: 4 Wheel 150 feet: 4 PT Nursing Home Goals Nursing Home Goals PT Nursing Home Goals Time Frame: Oct 13, 2020 Roll Left & Right (QC): 4 (SBA) Sit to Lying (QC): 4 (SBA) Lying-Sitting on Side/Bed(QC): 4 (SBA) Sit to Stand (QC): 4 (SBA) Chair/Xvf-tx-Ezrlx Xfer(QC): 4 (SBA) Toilet Transfer (QC): 4 (SBA) Car Transfer (QC): 4 (SBA) Does the Patient Walk: No and Walking Goal NOT indicated Walk 10 feet (QC): 88 Walk 50ft with 2 Turns (QC): 88 Walk 150 ft (QC): 88 Walking 10ft on Uneven Surface: 88 1 Step (curb) (QC): 88 4 Steps (QC): 88 12 Steps (QC): 88 Picking up an Object (QC): 88 Wheel 50 feet with 2 turns (QC: 6 Wheel 150 feet: 6 PT Plan Problem List Problem List: Activity Tolerance, Functional Strength, Safety, Balance, Gait, Transfer, Bed Mobility, ROM Treatment/Plan Treatment Plan: Continue Plan of Care Treatment Plan: Bed Mobility, Education, Functional Activity Jeramy, Functional Strength, Group Therapy, Gait, Safety, Therapeutic Exercise, Transfers Treatment Duration: Oct 13, 2020 Frequency: At least 5 of 7 days/Wk (IRF) Estimated Hrs Per Day: 1.5 hours per day Patient and/or Family Agrees t: Yes Safety Risks/Education Patient Education: Gait Training, Transfer Techniques, Correct Positioning, W/C Management, Safety Issues Teaching Recipient: Patient Teaching Methods: Demonstration, Discussion Response to Teaching: Reinforcement Needed Time/GCodes Time In: 0900 Time Out: 1000 Total Billed Treatment Time: 60 Total Billed Treatment 1 visit FA 60' co-treated from [id number] RACHEL LOPEZ PT Oct 11, 2020 09:59
[2020-10-11] MEDS: FLUoxetine HCL 20 MG (PROzac) CAP PO SCH (10:27)
[2020-10-11] MEDS: APIXABAN 5 MG (ELIQUIS) TABLET PO SCH ×2 (10:27→20:46)
[2020-10-11] MEDS: PANTOPRAZOLE 40 MG (PROTONIX) TAB PO SCH (10:27)
[2020-10-11] MEDS: VIMPAT 200 MG TABLET PO SCH ×2 (10:34→20:47)
[2020-10-11] MEDS: LACOSAMIDE 100 MG PO SCH ×2 (10:39→20:48)
--- NOTE | 2020-10-11 11:41 | Physical Therapy Daily Note ---
PT Daily Note-Current Subjective Patient in recliner pre tx, agrees to PT, has no complaints of pain at rest Appearance Patient in recliner post tx with nurse call, phone, tray, all needs met. Mental Status Patient Orientation: Person, Unable to Assess, Non-Verbal/Aphasic right leg brace Transfers SCALE: Activities may be completed with or without assistive devices. 0-Quxdlalqdd-bnfilbt completes the activity by him/herself with no assistance from a helper. 5-Set-up or Clean-up Assistance-helper sets up or cleans up; patient completes activity. [place] assists only prior to or following the activity. 4-Supervision or Touching Assistance-helper provides verbal cues and/or touching/steadying and/or contact guard assistance as patient completes activity. Assistance may be provided throughout the activity or intermittently. 3-Partial/Moderate Assistance-helper does LESS THAN HALF the effort. [place] lifts, holds or supports trunk or limbs, but provides less than half the effort. 2-Substantial/Maximal Assistance-helper does MORE THAN HALF the effort. [place] lifts or holds trunk or limbs and provides more than half the effort. 1-Ftwlmkish-qgnegu does ALL the effort. Patient does none of the effort to complete the activity. Or, the assistance of 2 or more helpers is required for the patient to complete the activity. If activity was not attempted, code reason: 7-Patient Refused. 9-Not Applicable-not attempted and the patient did not perform the activity before the current illness, exacerbation or injury. 10-Not Attempted due to Environmental Limitations-(lack of equipment, weather restraints, etc.). 88-Not Attempted due to Medical Conditions or Safety Concerns. Weight Bearing Right Lower Extremity: Right Weight Bearing/Tolerated Left Lower Extremity: Left Full Weight Bearing right leg brace to be on at all times, knee flexion limited to 90 degrees. Ok to begin WB on R on 09/29/20. Exercises Seated Therapy Exercises: Long arc quads (PROM) PROM/stretching right leg in all planes Treatments LE ROM Assessment Current Status: Fair Progress Patient maintaining good ROM, however, patient is not yet able to have a voluntary quad contraction on the right side PT Short Term Goals Short Term Goals Time Frame: Sep 29, 2020 Roll Left & Right: 4 Sit to lyin Lying to sitting on side of be: 4 Sit to stand: 4 Chair/rbz-wi-cqzek transfer: 4 Wheel 50ft w/2 turns: 4 Wheel 150 feet: 4 PT Accountant Clerk Goals Shelter Goals PT Shelter Goals Time Frame: Oct 13, 2020 Roll Left & Right (QC): 4 (SBA) Sit to Lying (QC): 4 (SBA) Lying-Sitting on Side/Bed(QC): 4 (SBA) Sit to Stand (QC): 4 (SBA) Chair/Wez-pq-Lnppf Xfer(QC): 4 (SBA) Toilet Transfer (QC): 4 (SBA) Car Transfer (QC): 4 (SBA) Does the Patient Walk: No and Walking Goal NOT indicated Walk 10 feet (QC): 88 Walk 50ft with 2 Turns (QC): 88 Walk 150 ft (QC): 88 Walking 10ft on Uneven Surface: 88 1 Step (curb) (QC): 88 4 Steps (QC): 88 12 Steps (QC): 88 Picking up an Object (QC): 88 Wheel 50 feet with 2 turns (QC: 6 Wheel 150 feet: 6 PT Plan Problem List Problem List: Activity Tolerance, Functional Strength, Safety, Balance, Gait, Transfer, Bed Mobility, ROM Treatment/Plan Treatment Plan: Continue Plan of Care Treatment Plan: Bed Mobility, Education, Functional Activity Jeramy, Functional Strength, Group Therapy, Gait, Safety, Therapeutic Exercise, Transfers Treatment Duration: Oct 13, 2020 Frequency: At least 5 of 7 days/Wk (IRF) Estimated Hrs Per Day: 1.5 hours per day Patient and/or Family Agrees t: Yes Safety Risks/Education Patient Education: Correct Positioning, Safety Issues Teaching Recipient: Patient Teaching Methods: Demonstration, Discussion Response to Teaching: Reinforcement Needed Time/GCodes Time In: 1130 Time Out: 1145 Total Billed Treatment Time: 15 Total Billed Treatment 1 visit EX RACHEL FERNANDEZ PT Oct 11, 2020 11:41
--- NOTE | 2020-10-11 13:36 | Speech Therapy Daily Note ---
Speech Daily Progress Note Subjective Date Seen by Provider: Oct 11, 2020 Time Seen by Provider: 00:30 Patient was resting in his recliner watching television following his PT and OT session. Objective Patient completed a series of "what's wrong with this picture?" with 60% expression with minimal cues provided. Patient demonstrated safe oral intake of current diet with compensatory strategies as trained at 80% with minimal cues. Assessment Patient is showing good progress with expression, however he states it's not fast enough. Treatment Plan Continue Plan of Care Speech Short Term Goals Short Term Goals Short Term Goals 1) Patient will tolerate least restrictive diet level without s/s of aspiration at 80% or greater with minimal cues. 2) Patient will utilize compensatory strategies as trained at 80% or greater with minima cues. 3) Patient will follow multi step commands with 90% or greater with minimal cues. 4) Patient will utilize communication board to assist with meeting wants/needs with moderate cue.s Speech Telecine Operator Goals Telecine Operator Goals Patient will maintain adequate nutrition/hydration via safe effective swallow function. Patient will participate in ongoing assessment for functional level of language abilities. Speech-Plan Patient/Family Goals Patient/Family Goals: Patient plans on returning to his home with family and friends support to assist him with his daily needs. Treatment Plan Speech Therapy Treatment Plan: Continue Plan of Care Treatment Duration: Oct 12, 2020 Frequency: 4 times per week (Patient will receive skilled ST 4 to 5x per week) Estimated Hrs Per Day: .5 hour per day Rehab Potential: Good Barriers to Learning: Patient's expressive language deficit Pt/Family Agrees to Plan: Yes Safety Risks/Education Teaching Recipient: Patient Teaching Methods: Demonstration, Discussion Response to Teaching: Verbalize Understanding, Return Demonstration Education Topics Provided: Continued overall safety as well as safe oral intake Time Speech Therapy Time In: 10:30 Speech Therapy Time Out: 11:00 Total Billed Time: 30 Billed Treatment Time 1, SLTS, DYST DENISE Perdomo Oct 11, 2020 13:36
--- NOTE | 2020-10-11 14:55 | NUR ---
CM/SS CONCURRENT lightning protection installer exploring post hospital resources for discharge planning. Visited with SO/Marry Yoon today and answered her questions to her satisfaction. Marry and patient's sister Ana are primary contacts for planning, patient' older sister reportedly intends to be involved as a caregiver as well. A second family education/training session will be set up in the near future prior to target discharge. Marry reports the ramp is installed. Marry and Ana both work multimedia teacher, this is in their equation regarding patient's care needs regarding taking off work, etc. Spoke with patient's [employer] Equip Tech, Gayle Hancock, today. At gag writer's request, she will update tomorrow on the followin. Coverage for 21" wheelchair, FWW, perhaps a quad cane and whether preauthorization is required. Provided [facility] contact information for her direct contact with them re same. 2. Home Health agencies in patient service area who are in network for Danny. If there are none, will pursue outpatient therapies. This possibility was discussed with therapy who indicated patient could transfer in/out of a vehicle independently, discussed with Marry who stated they would take patient to the outpatient appointments if necessary. Patient's target discharge to be discussed during weekly patient care conference tomorrow. Addendum: 10/11/20 at 1513 by BEBETO CHANG Gayle Delgado Equip Tech [phone]
[2020-10-11 16:10] VITALS: BP 110/70
[2020-10-11] MEDS: DOXYCYCLINE 100 MG (VIBRAMYCIN) TABLET PO SCH (20:46)
[2020-10-11] MEDS: ZONISAMIDE 100 MG CAP (ZONEGRAN) NON-FORMULARY PO SCH (20:47)
[2020-10-12 06:04] VITALS: BP 126/72
[2020-10-12] MEDS: ONDANSETRON 4 MG (ZOFRAN) ORAL DISSOLVE TAB PO SCH (08:16)
[2020-10-12] MEDS: FLUoxetine HCL 20 MG (PROzac) CAP PO SCH (08:16)
[2020-10-12] MEDS: PANTOPRAZOLE 40 MG (PROTONIX) TAB PO SCH (08:16)
[2020-10-12] MEDS: LACOSAMIDE 100 MG PO SCH ×2 (08:16→20:28)
[2020-10-12] MEDS: APIXABAN 5 MG (ELIQUIS) TABLET PO SCH ×2 (08:16→20:24)
[2020-10-12] MEDS: VIMPAT 200 MG TABLET PO SCH ×2 (08:18→20:29)
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
--- NOTE | 2020-10-12 10:23 | Physical Therapy Daily Note ---
PT Daily Note-Current Subjective Pt. with OT agrees to co Rx. Pt. denies pain in R LE, "just tingles some times" States with some passion that he really wants to go home Saturday."Why wait til next week"? Pain Location: No Pain Reported Mental Status Patient Orientation: Normal For Age Attachments: Other-See Comments (mask while out of room, IROM brace R knee) Transfers SCALE: Activities may be completed with or without assistive devices. 6-Drsnzmkszw-xrtyohb completes the activity by him/herself with no assistance from a helper. 5-Set-up or Clean-up Assistance-helper sets up or cleans up; patient completes activity. [place] assists only prior to or following the activity. 4-Supervision or Touching Assistance-helper provides verbal cues and/or touching/steadying and/or contact guard assistance as patient completes activity. Assistance may be provided throughout the activity or intermittently. 3-Partial/Moderate Assistance-helper does LESS THAN HALF the effort. [place] lifts, holds or supports trunk or limbs, but provides less than half the effort. 2-Substantial/Maximal Assistance-helper does MORE THAN HALF the effort. [place] lifts or holds trunk or limbs and provides more than half the effort. 3-Sqcgunzlm-afwghw does ALL the effort. Patient does none of the effort to complete the activity. Or, the assistance of 2 or more helpers is required for the patient to complete the activity. If activity was not attempted, code reason: 7-Patient Refused. 9-Not Applicable-not attempted and the patient did not perform the activity before the current illness, exacerbation or injury. 10-Not Attempted due to Environmental Limitations-(lack of equipment, weather restraints, etc.). 88-Not Attempted due to Medical Conditions or Safety Concerns. Roll Left & Right (QC): 4 Sit to Lying (QC): 5 Lying to Sitting/Side of Bed(Q: 6 Sit to Stand (QC): 4 Chair/Fyn-ci-Qdvjp Xfer(QC): 4 pt. requires reminders and some prep for TRFs, improving towards right, near indep to left Weight Bearing Right Lower Extremity: Right Weight Bearing/Tolerated Left Lower Extremity: Left Full Weight Bearing right leg brace to be on at all times, knee flexion limited to 90 degrees. Ok to begin WB on R on 09/29/20. Gait Training Does the Patient Walk?: Yes Walk 10 feet (QC): 3 Gait Persons Needed: 2 Gait Assistive Device: Parallel Bars at rail in go pt. using LUE/hand with PT advancing RLE with IROM brace in place and mod to max assist to advance RLE. pt today able to stablilize knee extension to advance LLE with assistance, pt. ambulated 12 ft x 2 followed by w/c Wheelchair Training Does the Pt Use a Wheelchair?: Yes Wheel 50 ft with 2 turns (QC): 5 Wheel 150 ft (QC): 5 Type of Wheelchair: Manual pt.manuevered around fig 8 in tight spaces and managed brakes and leg rests etc indep . pt. able to swing leg rests as well as take leg rest off and on indep with some instruction Exercises Supine Ex: Bridging, Ankle pumps, Quad Set, Rolling, Glut sets, Heel Slides, Short Arc Quads, Scooting, Straight leg raise, Hip abd/add Supine Reps: 15 Seated Therapy Exercises: Sit to stand Seated Reps: 12 Treatments PT OT co Rx for coordination of TRFs and ADLs and gait Assessment Current Status: Good Progress good progress noted in all aspects of Rx PT Short Term Goals Short Term Goals Time Frame: Sep 29, 2020 Roll Left & Right: 4 Sit to lyin Lying to sitting on side of be: 4 Sit to stand: 4 Chair/cdd-jn-nntro transfer: 4 Wheel 50ft w/2 turns: 4 Wheel 150 feet: 4 PT Custodial Goals Custodial Goals PT [employer] Lead Goals Time Frame: Oct 13, 2020 Roll Left & Right (QC): 4 (SBA) Sit to Lying (QC): 4 (SBA) Lying-Sitting on Side/Bed(QC): 4 (SBA) Sit to Stand (QC): 4 (SBA) Chair/Szn-ay-Bapdi Xfer(QC): 4 (SBA) Toilet Transfer (QC): 4 (SBA) Car Transfer (QC): 4 (SBA) Does the Patient Walk: No and Walking Goal NOT indicated Walk 10 feet (QC): 88 Walk 50ft with 2 Turns (QC): 88 Walk 150 ft (QC): 88 Walking 10ft on Uneven Surface: 88 1 Step (curb) (QC): 88 4 Steps (QC): 88 12 Steps (QC): 88 Picking up an Object (QC): 88 Wheel 50 feet with 2 turns (QC: 6 Wheel 150 feet: 6 PT Plan Treatment/Plan Treatment Plan: Continue Plan of Care Treatment Plan: Bed Mobility, Education, Functional Activity Jeramy, Functional Strength, Group Therapy, Gait, Safety, Therapeutic Exercise, Transfers Treatment Duration: Oct 13, 2020 Frequency: At least 5 of 7 days/Wk (IRF) Estimated Hrs Per Day: 1.5 hours per day Patient and/or Family Agrees t: Yes Safety Risks/Education Patient Education: Gait Training, Transfer Techniques, Correct Positioning, W/C Management, Disease Process, Safety Issues Teaching Recipient: Patient Teaching Methods: Demonstration, Discussion Response to Teaching: Verbalize Understanding, Return Demonstration, Reinforcement Needed Time/GCodes Time In: 900 Time Out: 1015 Total Billed Treatment Time: 75 Total Billed Treatment 1,wc 15m,gt15m,FA30m,EX15m (PT OT co Rx 45m) GEORGE VILLEGAS BPO SPECIALIST Oct 12, 2020 10:23
--- NOTE | 2020-10-12 14:52 | NUR ---
CM/[facility] PATIENT CARE CONFERENCE Reviewed Summary with patient and then with his sister Ana Romero by phone. They are in agreement to second family education/training Wednesday, October 14, 2020 and that patient will discharge with them thereafter. Patient requested to leave Saturday and, after discussion during care conference, team agreed as long as services and DME could be finalized. Data Architect partnered with Clinical Physician Assistant Enoch Chacko, . He will remain as patient's healthcare consulting manager post discharge, his information was provided to Ana. DME: Data Architect researched closest agency with patient's assistive devices in stock, [facility] and reyna walker cane. Agency understands delivery is requested by Saturday a.m. so that patient/family can take it home. HHC: Per recommendation by Danny Clinical Physician Assistant based on his research of agencies who will accept Amb[employer] and provide services timely, referral completed with [facility]. Await confirmation of acceptance and timely access, RN PT OT and ST if available. Patient appears excited his departure is set for Saturday! Follow and assist to finalize all arrangements. Addendum: 10/12/20 at 1505 by BEBETO CHANG Ana has requested assistance with short term disability forms, requested they be forwarded for completion. She has also requested assistance with a Disabled Placard for [place].
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
--- NOTE | 2020-10-12 15:12 | Occupational Ther Daily Note ---
OT Current Status-Daily Note Subjective No pain reported. Appearance Pt.up in chair. Agrees to work with OT. Mental Status/Objective Patient Orientation: Person, Place ADL-Treatment Therapy Code Descriptions/Definitions Functional [place] Measure: 0=Not Assessed/NA 4=Minimal Assistance 1=Total Assistance 5=Supervision or Setup 2=Maximal Assistance 6=Modified [place] 3=Moderate Assistance 7=Complete IndependenceSCALE: Activities may be completed with or without assistive devices. 0-Pxmpobkdcf-qarkhni completes the activity by him/herself with no assistance from a helper. 5-Set-up or Clean-up Assistance-helper sets up or cleans up; patient completes activity. [place] assists only prior to or following the activity. 4-Supervision or Touching Assistance-helper provides verbal cues and/or touching/steadying and/or contact guard assistance as patient completes activity. Assistance may be provided throughout the activity or intermittently. 3-Partial/Moderate Assistance-helper does LESS THAN HALF the effort. [place] lifts, holds or supports trunk or limbs, but provides less than half the effort. 2-Substantial/Maximal Assistance-helper does MORE THAN HALF the effort. [place] l ifts or holds trunk or limbs and provides more than half the effort. 4-Lbhvekfuu-ldtfvl does ALL the effort. Patient does none of the effort to complete the activity. Or, the assistance of 2 or more helpers is required for the patient to complete the activity. If activity was not attempted, code reason: 7-Patient Refused. 9-Not Applicable-not attempted and the patient did not perform the activity before the current illness, exacerbation or injury. 10-Not Attempted due to Environmental Limitations-(lack of equipment, weather restraints, etc.). 88-Not Attempted due to Medical Conditions or Safety Concerns. Oral Hygiene (QC): 5 (Seated in wheelchair at sink.) On/Off Footwear: 3 (Pt. able to don left shoe but required assistance to don right shoe. OT applied elastic shoelaces.) Toileting Hygiene (QC): 3 (Mod assist in stance.) Toilet Transfer (QC): 3 (Min assist) Other Treatment Pt. is up in chair. Transferred sit-stand and to wheelchair with min assist. Pt. self propelled wheelchair to bathroom. Pt. completed oral care and shaved sitting at sink. OT assisted with getting all areas on face when shaving, but overall, pt. did well. Pt. self propelled to therapy gym. Transferred to mat with min assist, and practiced supine to/from sit with using left leg under right LE to get into/out of bed. Pt. also worked on being able to get his right LE onto/off of his leg rest on his own, which he is able to do. OT adjusted leg brace. PT came in at this point and assisted with co-treatment for skilled assistance of 2 clinicians. Pt. was assisted with ambulation. OT worked on weight shifts and hand placement on railing of wall while PT facilitated right L E to advance forward. Pt. did this several times, with assist of two. Please see PT note for distance ambulated. Pt. with PT after session. Education OT Patient Education: Correct positioning, Modified ADL techniques, Progress toward Goal/Update tx plan, Purpose of tx/functional activities, Reviewed precautions, Rehab process, Transfer techniques Teaching Recipient: Patient Teaching Methods: Demonstration, Discussion Response to Teaching: Verbalize Understanding, Return Demonstration, Reinforcement Needed OT Short Term Goals Short Term Goals Time Frame: Oct 06, 2020 Eatin Oral hygiene: 3 Toileting hygiene: 3 Shower/bathe self: 3 Upper body dressin Lower body dressin Putting on/taking off footwear: 3 OT Group Home Goals Group Home Goals Time Frame: Oct 20, 2020 Eating (QC): 6 Oral Hygiene (QC): 6 Toileting Hygiene (QC): 4 Shower/Bathe Self (QC): 4 Upper Body Dressing (QC): 5 Lower Body Dressing (QC): 4 On/Off Footwear (QC): 4 Additional Goals: 1-Demonstrate ADL Tasks, 2-Verbalize Understanding, 3- ImproveStrength/Jeramy 1=Demonstrate adherence to instructed precautions during ADL tasks. 2=Patient will verbalize/demonstrate understanding of assistive devices/modifications for ADL. 3=Patient will improve strength/tolerance for activity to enable patient to perform ADL's. OT Education/Plan Problem List/Assessment Assessment: Decreased Activ Tolerance, Dependent Transfers, Impaired Coordination, Impaired Funct Balance, Impaired I ADL's, Impaired Self-Care Skills, Restricted Funct UE ROM Discharge Recommendations Plan/Recommendations: Continue POC Therapy Discharge Recommendati: Scheduled Assistance, Home & Family, Post Acute OT Treatment Plan/Plan of Care Treatment,Training & Education: Yes Patient would benefit from OT for education, treatment and training to promote independence in ADL's, mobility, safety and/or upper extremity function for ADL's. Plan of Care: ADL Retraining, Functional Mobility, UE Funct Exercise/Act, UE Neuromus Re-Ed/Coord Treatment Duration: Oct 20, 2020 Frequency: At least 5 of 7 days/Wk (IRF) Estimated Hrs Per Day: 1.5 hours per day Agreement: Yes Rehab Potential: Good Time/GCodes Start Time: 08:30 Stop Time: 09:45 Total Time Billed (hr/min): 75 Billed Treatment Time 1512-7563 1, ADL x 30minutes 2320-2775 FA x 45minutes- Co-treatment with PT. Please see above note for designated roles. AMISH ROBERTO OT Oct 12, 2020 15:12
[2020-10-12 17:11] VITALS: BP 116/75
[2020-10-12] MEDS: DOXYCYCLINE 100 MG (VIBRAMYCIN) TABLET PO SCH (20:25)
[2020-10-12] MEDS: ZONISAMIDE 100 MG CAP (ZONEGRAN) NON-FORMULARY PO SCH (20:30)
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
[2020-10-13 06:00] VITALS: BP 115/73
[2020-10-13] MEDS: ONDANSETRON 4 MG (ZOFRAN) ORAL DISSOLVE TAB PO SCH (08:37)
[2020-10-13] MEDS: APIXABAN 5 MG (ELIQUIS) TABLET PO SCH ×2 (09:59→20:41)
[2020-10-13] MEDS: FLUoxetine HCL 20 MG (PROzac) CAP PO SCH (09:59)
[2020-10-13] MEDS: PANTOPRAZOLE 40 MG (PROTONIX) TAB PO SCH (09:59)
[2020-10-13] MEDS: VIMPAT 200 MG TABLET PO SCH ×2 (09:59→20:39)
[2020-10-13] MEDS: LACOSAMIDE 100 MG PO SCH ×2 (09:59→20:38)
--- NOTE | 2020-10-13 11:14 | Physical Therapy Daily Note ---
PT Daily Note-Current Subjective Patient in recliner pre tx, agrees to PT, has no complaints of pain, will be co- treating with OT due to poor patient mobility, strength, endurance, the need to coordinate UE and LE during activity, right hemiparesis, safety and reduce risk of falls. Appearance Patient in recliner post tx with nurse call, phone, tray, all needs met. Mental Status Patient Orientation: Person, Unable to Assess, Non-Verbal/Aphasic right leg brace Transfers SCALE: Activities may be completed with or without assistive devices. 9-Rxzhcbzsiu-hchkmif completes the activity by him/herself with no assistance from a helper. 5-Set-up or Clean-up Assistance-helper sets up or cleans up; patient completes activity. [place] assists only prior to or following the activity. 4-Supervision or Touching Assistance-helper provides verbal cues and/or touching/steadying and/or contact guard assistance as patient completes activity. Assistance may be provided throughout the activity or intermittently. 3-Partial/Moderate Assistance-helper does LESS THAN HALF the effort. [place] lifts, holds or supports trunk or limbs, but provides less than half the effort. 2-Substantial/Maximal Assistance-helper does MORE THAN HALF the effort. [place] lifts or holds trunk or limbs and provides more than half the effort. 8-Lfhbbwdik-uodgdo does ALL the effort. Patient does none of the effort to complete the activity. Or, the assistance of 2 or more helpers is required for the patient to complete the activity. If activity was not attempted, code reason: 7-Patient Refused. 9-Not Applicable-not attempted and the patient did not perform the activity before the current illness, exacerbation or injury. 10-Not Attempted due to Environmental Limitations-(lack of equipment, weather restraints, etc.). 88-Not Attempted due to Medical Conditions or Safety Concerns. Roll Left & Right (QC): 4 Sit to Lying (QC): 3 Lying to Sitting/Side of Bed(Q: 3 Sit to Stand (QC): 4 Chair/Zku-yj-Etyiq Xfer(QC): 4 Toilet Transfer (QC): 4 Car Transfer (QC): 3 Patient performs bed mobility with SBA, supine <-> sit min assist, sit <-> stand and transfers CGA (both ways), and car transfer min assist. Weight Bearing Right Lower Extremity: Right Weight Bearing/Tolerated Left Lower Extremity: Left Full Weight Bearing right leg brace to be on at all times, knee flexion limited to 90 degrees. Ok to begin WB on R on 09/29/20. Gait Training Distance: 50' Walk 10 feet (QC): 3 Walk 50 ft with 2 Turns(QC): 3 Walk 150 ft (QC): 88 Walking 10ft/uneven surface-QC: 88 Gait Assistive Device: Walker Mikey Patient can ambulate 50' with a hemiwalker with mod assist (including 2 turns of 90 degrees). He needs assist with weight shifting and advancing his right leg. Wheelchair Training Does the Pt Use a Wheelchair?: Yes Wheel 50 ft with 2 turns (QC): 6 Wheel 150 ft (QC): 6 Type of Wheelchair: Manual Patient practiced up and down elevators, hallways, ramps, through doorways. Stair Training 1 Step (curb) (QC): 88 4 Steps (QC): 88 12 Steps (QC): 88 Balance Picking up an Object (QC): 88 Treatments PT performed bed mobility and transfers, ambulation, WC mobility, OT performed UE positioning and safety during activity, home safety education. Assessment Current Status: Fair Progress Patient unusually fatigued after tx. PT Short Term Goals Short Term Goals Time Frame: Sep 29, 2020 Roll Left & Right: 4 Sit to lyin Lying to sitting on side of be: 4 Sit to stand: 4 Chair/dlj-no-nnvbk transfer: 4 Wheel 50ft w/2 turns: 4 Wheel 150 feet: 4 PT Director Fixed Income Goals Alf Goals PT Alf Goals Time Frame: Oct 13, 2020 Roll Left & Right (QC): 4 (SBA) Sit to Lying (QC): 4 (SBA) Lying-Sitting on Side/Bed(QC): 4 (SBA) Sit to Stand (QC): 4 (SBA) Chair/Rhr-fp-Lvmoy Xfer(QC): 4 (SBA) Toilet Transfer (QC): 4 (SBA) Car Transfer (QC): 4 (SBA) Does the Patient Walk: No and Walking Goal NOT indicated Walk 10 feet (QC): 88 Walk 50ft with 2 Turns (QC): 88 Walk 150 ft (QC): 88 Walking 10ft on Uneven Surface: 88 1 Step (curb) (QC): 88 4 Steps (QC): 88 12 Steps (QC): 88 Picking up an Object (QC): 88 Wheel 50 feet with 2 turns (QC: 6 Wheel 150 feet: 6 PT Plan Problem List Problem List: Activity Tolerance, Functional Strength, Safety, Balance, Gait, Transfer, Bed Mobility, ROM Treatment/Plan Treatment Plan: Continue Plan of Care Treatment Plan: Bed Mobility, Education, Functional Activity Jeramy, Functional Strength, Group Therapy, Gait, Safety, Therapeutic Exercise, Transfers Treatment Duration: Oct 13, 2020 Frequency: At least 5 of 7 days/Wk (IRF) Estimated Hrs Per Day: 1.5 hours per day Patient and/or Family Agrees t: Yes Safety Risks/Education Patient Education: Gait Training, Transfer Techniques, Correct Positioning, W/C Management, Safety Issues Teaching Recipient: Patient Teaching Methods: Demonstration, Discussion Response to Teaching: Reinforcement Needed Time/GCodes Time In: 1000 Time Out: 1115 Total Billed Treatment Time: 75 Total Billed Treatment 1 visit FA 75' co-treated with OT for 45' from [id number] RACHEL LOPEZ PT Oct 13, 2020 11:13
--- NOTE | 2020-10-13 11:14 | Occupational Ther Daily Note ---
OT Current Status-Daily Note Subjective No pain reported. Appearance Pt. up in chair. Agrees to work with OT. Mental Status/Objective Patient Orientation: Person, Place ADL-Treatment Therapy Code Descriptions/Definitions Functional [place] Measure: 0=Not Assessed/NA 4=Minimal Assistance 1=Total Assistance 5=Supervision or Setup 2=Maximal Assistance 6=Modified [place] 3=Moderate Assistance 7=Complete IndependenceSCALE: Activities may be completed with or without assistive devices. 0-Ihendinhpu-cnqzjfl completes the activity by him/herself with no assistance from a helper. 5-Set-up or Clean-up Assistance-helper sets up or cleans up; patient completes activity. [place] assists only prior to or following the activity. 4-Supervision or Touching Assistance-helper provides verbal cues and/or touching/steadying and/or contact guard assistance as patient completes activity. Assistance may be provided throughout the activity or intermittently. 3-Partial/Moderate Assistance-helper does LESS THAN HALF the effort. [place] lifts, holds or supports trunk or limbs, but provides less than half the effort. 2-Substantial/Maximal Assistance-helper does MORE THAN HALF the effort. [place] lifts or holds trunk or limbs and provides more than half the effort. 7-Medmjpuqz-svvmon does ALL the effort. Patient does none of the effort to complete the activity. Or, the assistance of 2 or more helpers is required for the patient to complete the activity. If activity was not attempted, code reason: 7-Patient Refused. 9-Not Applicable-not attempted and the patient did not perform the activity before the current illness, exacerbation or injury. 10-Not Attempted due to Environmental Limitations-(lack of equipment, weather restraints, etc.). 88-Not Attempted due to Medical Conditions or Safety Concerns. Eating (QC): 6 Oral Hygiene (QC): 5 Shower/Bathe Self (QC): 3 (Min assist in stance to dry bottom.) Upper Body Dressing (QC): 5 (Set up to doff/don shirt.) Lower Body Dressing (QC): 2 (Pt. requires assistance to don shorts over right LE. He is able to don over left. Pt. is able to pull up to thighs, but requires assistance to don over hips in stance.) On/Off Footwear: 3 (Mod assist. Pt. able to don sock and shoe on left LE, but requires assistance to don over right.) Toileting Hygiene (QC): 3 (Mod assist) Toilet Transfer (QC): 3 (Min assist.) Other Treatment Pt. completed ADLs in bathroom. Transferred to and from wheelchair with min assist. After ADLs, pt. self propelled to reclining chair. Transferred with min assist and all needs were met. Education OT Patient Education: Correct positioning, Modified ADL techniques, Progress toward Goal/Update tx plan, Purpose of tx/functional activities, Reviewed precautions, Rehab process, Transfer techniques Teaching Recipient: Patient Teaching Methods: Demonstration, Discussion Response to Teaching: Verbalize Understanding, Return Demonstration OT Short Term Goals Short Term Goals Time Frame: Oct 06, 2020 Eatin Oral hygiene: 3 Toileting hygiene: 3 Shower/bathe self: 3 Upper body dressin Lower body dressin Putting on/taking off footwear: 3 OT Box Packer Goals Fdc Goals Time Frame: Oct 20, 2020 Eating (QC): 6 Oral Hygiene (QC): 6 Toileting Hygiene (QC): 4 Shower/Bathe Self (QC): 4 Upper Body Dressing (QC): 5 Lower Body Dressing (QC): 4 On/Off Footwear (QC): 4 Additional Goals: 1-Demonstrate ADL Tasks, 2-Verbalize Understanding, 3- ImproveStrength/Jeramy 1=Demonstrate adherence to instructed precautions during ADL tasks. 2=Patient will verbalize/demonstrate understanding of assistive devices/modifications for ADL. 3=Patient will improve strength/tolerance for activity to enable patient to perform ADL's. OT Education/Plan Problem List/Assessment Assessment: Decreased Activ Tolerance, Decreased UE Strength, Dependent Transfers, Impaired Cognition, Impaired Coordination, Impaired Funct Balance, Impaired I ADL's, Impaired Self-Care Skills, Restricted Funct UE ROM Discharge Recommendations Plan/Recommendations: Continue POC Therapy Discharge Recommendati: Scheduled Assistance, Home & Family, Post Acute OT Treatment Plan/Plan of Care Treatment,Training & Education: Yes Patient would benefit from OT for education, treatment and training to promote independence in ADL's, mobility, safety and/or upper extremity function for ADL's. Plan of Care: ADL Retraining, Functional Mobility, UE Funct Exercise/Act, UE Neuromus Re-Ed/Coord Treatment Duration: Oct 20, 2020 Frequency: At least 5 of 7 days/Wk (IRF) Estimated Hrs Per Day: 1.5 hours per day Agreement: Yes Rehab Potential: Good Time/GCodes Start Time: 08:20 Stop Time: 08:55 Total Time Billed (hr/min): 35 Billed Treatment Time 1, ADL x 2 AMISH ROBERTO OT Oct 13, 2020 11:14
--- NOTE | 2020-10-13 11:18 | NUR ---
CM/SS DISCHARGE PLANNING Explored all 7 home health agencies in patient's service area and none accepted patient due to insurance [employer]. [facility] would consider the [employer] but does not have OT or ST services, considered crucial as part of patient's care plan. OUTPATIENT REHABILITATION was set up through [facility] in [facility], patient's hometown. Facility stated they can provide all, PT OT and ST, and that they would schedule directly with patient/family. DME: Referral completed with [facility], will provide required supportive documentation once received. Leoncio at [place] made contact with [employer] insurance yesterday, preauthorization required. Will attempt to expedite process once they have all requested information. Anticipate resistance to cover both wheelchair and reyna walker cane, will partner with family for out of pocket as necessary. Family training tomorrow and patient dc thereafter, DME must be delivered prior.
--- NOTE | 2020-10-13 11:19 | Occupational Ther Daily Note ---
OT Current Status-Daily Note Subjective No pain reported. Appearance Pt. up in wheelchair working with PT. Agrees to co-treatment with PT and OT. Mental Status/Objective Patient Orientation: Person, Place ADL-Treatment Therapy Code Descriptions/Definitions Functional [place] Measure: 0=Not Assessed/NA 4=Minimal Assistance 1=Total Assistance 5=Supervision or Setup 2=Maximal Assistance 6=Modified [place] 3=Moderate Assistance 7=Complete IndependenceSCALE: Activities may be completed with or without assistive devices. 5-Vrhmafaayr-lodyahk completes the activity by him/herself with no assistance from a helper. 5-Set-up or Clean-up Assistance-helper sets up or cleans up; patient completes activity. [place] assists only prior to or following the activity. 4-Supervision or Touching Assistance-helper provides verbal cues and/or touching/steadying and/or contact guard assistance as patient completes activity. Assistance may be provided throughout the activity or intermittently. 3-Partial/Moderate Assistance-helper does LESS THAN HALF the effort. [place] lifts, holds or supports trunk or limbs, but provides less than half the effort. 2-Substantial/Maximal Assistance-helper does MORE THAN HALF the effort. [place] lifts or holds trunk or limbs and provides more than half the effort. 2-Gktklukwb-jylkql does ALL the effort. Patient does none of the effort to complete the activity. Or, the assistance of 2 or more helpers is required for the patient to complete the activity. If activity was not attempted, code reason: 7-Patient Refused. 9-Not Applicable-not attempted and the patient did not perform the activity before the current illness, exacerbation or injury. 10-Not Attempted due to Environmental Limitations-(lack of equipment, weather restraints, etc.). 88-Not Attempted due to Medical Conditions or Safety Concerns. Other Treatment Pt. participated in co-treatment due to need of skilled clinicians x 2 for mobility training and education. Pt. getting fatigued due to already having shower and working with PT separately. PT focuses on mobility and transfers while OT focuses on UE management. Pt. practiced community training with wheelchair propulsion for safety in community setting. Pt. able to self propel wheelchair, but does get fatigued after propelling for long distance. Pt. is able to put gait belt over right UE, to hold it to him during transfers. Worked on right sided awareness when in chair, maneuvering in different environments and through doors, such as [place], elevator, and lobby area. Pt. practiced getting right LE on and off of his leg rest on wheelchair. Pt. able to do this generally, but due to significant fatigue, does require assistance at end of session. Encouraged pt. to practice continued ambulation with reyna cane, but pt. declines as he would like to rest. Pt. transfers back to reclining chair, and all needs are met at this level. Education OT Patient Education: Correct positioning, Modified ADL techniques, Progress toward Goal/Update tx plan, Purpose of tx/functional activities, Reviewed precautions, Rehab process, Transfer techniques Teaching Recipient: Patient Teaching Methods: Demonstration, Discussion Response to Teaching: Verbalize Understanding, Return Demonstration OT Short Term Goals Short Term Goals Time Frame: Oct 06, 2020 Eatin Oral hygiene: 3 Toileting hygiene: 3 Shower/bathe self: 3 Upper body dressin Lower body dressin Putting on/taking off footwear: 3 OT Retort Or Condenser Press Operator Goals Snf Goals Time Frame: Oct 20, 2020 Eating (QC): 6 Oral Hygiene (QC): 6 Toileting Hygiene (QC): 4 Shower/Bathe Self (QC): 4 Upper Body Dressing (QC): 5 Lower Body Dressing (QC): 4 On/Off Footwear (QC): 4 Additional Goals: 1-Demonstrate ADL Tasks, 2-Verbalize Understanding, 3- ImproveStrength/Jeramy 1=Demonstrate adherence to instructed precautions during ADL tasks. 2=Patient will verbalize/demonstrate understanding of assistive devices/modifications for ADL. 3=Patient will improve strength/tolerance for activity to enable patient to perform ADL's. OT Education/Plan Problem List/Assessment Assessment: Decreased Activ Tolerance, Decreased UE Strength, Dependent Transfers, Impaired Cognition, Impaired Coordination, Impaired Funct Balance, Impaired I ADL's, Impaired Self-Care Skills, Restricted Funct UE ROM Discharge Recommendations Plan/Recommendations: Continue POC Therapy Discharge Recommendati: Scheduled Assistance, Home & Family, Post Acute OT Treatment Plan/Plan of Care Treatment,Training & Education: Yes Patient would benefit from OT for education, treatment and training to promote independence in ADL's, mobility, safety and/or upper extremity function for ADL's. Plan of Care: ADL Retraining, Functional Mobility, UE Funct Exercise/Act, UE Neuromus Re-Ed/Coord Treatment Duration: Oct 20, 2020 Frequency: At least 5 of 7 days/Wk (IRF) Estimated Hrs Per Day: 1.5 hours per day Agreement: Yes Rehab Potential: Good Time/GCodes Start Time: 10:30 Stop Time: 11:15 Total Time Billed (hr/min): 45 Billed Treatment Time 1, FA x 3 AMISH ROBERTO OT Oct 13, 2020 11:19
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
[2020-10-13 18:04] VITALS: BP 117/71
[2020-10-13] MEDS: ZONISAMIDE 100 MG CAP (ZONEGRAN) NON-FORMULARY PO SCH (20:40)
[2020-10-13] MEDS: DOXYCYCLINE 100 MG (VIBRAMYCIN) TABLET PO SCH (20:41)
[2020-10-14 06:13] VITALS: BP 116/65
[2020-10-14] MEDS: VIMPAT 200 MG TABLET PO SCH (08:15)
[2020-10-14] MEDS: APIXABAN 5 MG (ELIQUIS) TABLET PO SCH (08:15)
[2020-10-14] MEDS: PANTOPRAZOLE 40 MG (PROTONIX) TAB PO SCH (08:15)
[2020-10-14] MEDS: FLUoxetine HCL 20 MG (PROzac) CAP PO SCH (08:15)
[2020-10-14] MEDS: ONDANSETRON 4 MG (ZOFRAN) ORAL DISSOLVE TAB PO SCH (08:16)
[2020-10-14] MEDS: LACOSAMIDE 100 MG PO SCH (08:16)
[2020-10-14] MEDS ORDERED: PANT40TA52 PO (08:27)
[2020-10-14] MEDS ORDERED: ATOR40TA PO (08:27)
[2020-10-14] MEDS ORDERED: APIX5TAB PO (08:27)
[2020-10-14] MEDS ORDERED: ONDA4TAB11 PO (08:27)
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
--- NOTE | 2020-10-14 10:20 | Physical Therapy Daily Note ---
PT Daily Note-Current Subjective Patient in recliner pre tx, agrees to PT, has no complaints of pain. His family is here to take him home, they have requested to see how much assist he needs with functional mobility now. Will be co-treating with OT for family training before patient goes home. Appearance Patient in WC post tx with family Mental Status Patient Orientation: Person, Unable to Assess, Non-Verbal/Aphasic right leg brace Transfers SCALE: Activities may be completed with or without assistive devices. 8-Vdpxvfgzfi-[id number] completes the activity by him/herself with no assistance from a helper. 5-Set-up or Clean-up Assistance-helper sets up or cleans up; patient completes activity. [place] assists only prior to or following the activity. 4-Supervision or Touching Assistance-helper provides verbal cues and/or touching/steadying and/or contact guard assistance as patient completes activity. Assistance may be provided throughout the activity or intermittently. 3-Partial/Moderate Assistance-helper does LESS THAN HALF the effort. [place] lifts, holds or supports trunk or limbs, but provides less than half the effort. 2-Substantial/Maximal Assistance-helper does MORE THAN HALF the effort. [place] lifts or holds trunk or limbs and provides more than half the effort. 9-Asocrsits-jaykkw does ALL the effort. Patient does none of the effort to complete the activity. Or, the assistance of 2 or more helpers is required for the patient to complete the activity. If activity was not attempted, code reason: 7-Patient Refused. 9-Not Applicable-not attempted and the patient did not perform the activity before the current illness, exacerbation or injury. 10-Not Attempted due to Environmental Limitations-(lack of equipment, weather restraints, etc.). 88-Not Attempted due to Medical Conditions or Safety Concerns. Roll Left & Right (QC): 6 Sit to Lying (QC): 3 Lying to Sitting/Side of Bed(Q: 3 Sit to Stand (QC): 4 Chair/Lob-cx-Jhdmp Xfer(QC): 4 Toilet Transfer (QC): 4 Weight Bearing Right Lower Extremity: Right Weight Bearing/Tolerated Left Lower Extremity: Left Full Weight Bearing right leg brace to be on at all times, knee flexion limited to 90 degrees. Ok to begin WB on R on 09/29/20. Gait Training Distance: 10' Walk 10 feet (QC): 3 Gait Persons Needed: 1 Gait Assistive Device: Walker Mikey min assist, needs assist with balance and advancing his right leg Wheelchair Training Wheel 50 ft with 2 turns (QC): 6 Wheel 150 ft (QC): 6 Treatments bed mobility and transfers, WC mobility, ambulation Assessment Current Status: Fair Progress much improved transfers PT Short Term Goals Short Term Goals Time Frame: Sep 29, 2020 Roll Left & Right: 4 Sit to lyin Lying to sitting on side of be: 4 Sit to stand: 4 Chair/rtl-sj-fpqen transfer: 4 Wheel 50ft w/2 turns: 4 Wheel 150 feet: 4 PT Electronic Scale Tester Goals Electronic Scale Tester Goals PT [facility] Goals Time Frame: Oct 13, 2020 Roll Left & Right (QC): 4 (SBA) Sit to Lying (QC): 4 (SBA) Lying-Sitting on Side/Bed(QC): 4 (SBA) Sit to Stand (QC): 4 (SBA) Chair/Hyr-gm-Fbfna Xfer(QC): 4 (SBA) Toilet Transfer (QC): 4 (SBA) Car Transfer (QC): 4 (SBA) Does the Patient Walk: No and Walking Goal NOT indicated Walk 10 feet (QC): 88 Walk 50ft with 2 Turns (QC): 88 Walk 150 ft (QC): 88 Walking 10ft on Uneven Surface: 88 1 Step (curb) (QC): 88 4 Steps (QC): 88 12 Steps (QC): 88 Picking up an Object (QC): 88 Wheel 50 feet with 2 turns (QC: 6 Wheel 150 feet: 6 PT Plan Problem List Problem List: Activity Tolerance, Functional Strength, Safety, Balance, Gait, Transfer, Bed Mobility, ROM Treatment/Plan Treatment Plan: Continue Plan of Care Treatment Plan: Bed Mobility, Education, Functional Activity Jeramy, Functional Strength, Group Therapy, Gait, Safety, Therapeutic Exercise, Transfers Treatment Duration: Oct 13, 2020 Frequency: At least 5 of 7 days/Wk (IRF) Estimated Hrs Per Day: 1.5 hours per day Patient and/or Family Agrees t: Yes Safety Risks/Education Patient Education: Gait Training, Transfer Techniques, Correct Positioning, W/C Management, Safety Issues Teaching Recipient: Patient Teaching Methods: Demonstration, Discussion Response to Teaching: Reinforcement Needed Time/GCodes Time In: 1000 Time Out: 1015 Total Billed Treatment Time: 15 Total Billed Treatment 1 visit FA RACHEL FERNANDEZ PT Oct 14, 2020 10:20
--- NOTE | 2020-10-14 10:24 | Therapy Team Discharge Summary ---
Therapy Discharge Summary Discharge Recommendations Date of Discharge Physical Therapy Patient came to rehab with CVA with right hemiplegia. Upon evaluation patient performed bed mobility and supine <-> sit with min assist, sit <-> stand min assist, transfers to either side with min assist, car transfer min assist, and propelled a manual WC 150' with min/mod assist. Patient has been performing bed mobility and transfer training, balance and endurance training, functional strengthening, gait training, and education. Patient has made good progress but has only met his retirement goals for bed mobility and WC mobility. Now, patient performs bed mobility with SBA, supine <-> sit min assist, sit <-> stand and transfers CGA (both ways), and car transfer min assist, ambulates 50' with a hemiwalker with mod assist (including 2 turns of 90 degrees), and is independent with WC mobility. Patient is discharging from this facility today and will be discharged from PT at this time. Occupational Therapy Decreased Activ Tolerance, Decreased UE Strength, Dependent Transfers, Impaired Cognition, Impaired Coordination, Impaired Funct Balance, Impaired I ADL's, Impaired Self-Care Skills, Restricted Funct UE ROM PT Hand Molder Meat Goals Hand Molder Meat Goals PT Hand Molder [employer] Goals Time Frame: Oct 13, 2020 Roll Left to Right (QC): 4 (SBA) Sit to Lying (QC): 4 (SBA) Lying-Sitting on Side/Bed(QC): 4 (SBA) Sit to Stand (QC): 4 (SBA) Chair/Tsy-hf-Rdkvy Xfer(QC): 4 (SBA) Car Transfer (QC): 4 (SBA) Does the Patient Walk: No and Walking Goal NOT indicated Walk 10 feet (QC): 88 Walk 10ft-Uneven Surface(QC): 88 Walk 50ft with 2 Turns (QC): 88 Walk 150 ft (QC): 88 Wheel 50 feet with 2 turns (QC: 6 1 Step (curb) (QC): 88 4 Steps (QC): 88 12 Steps (QC): 88 Picking up an Object (QC): 88 OT Longterm Goals [employer] Goals Time Frame: Oct 20, 2020 Eating (FIM): 6 Eating (QC): 6 Oral Hygiene (QC): 6 Shower/Bathe Self (QC): 4 Upper Body Dressing (QC): 5 Lower Body Dressing (QC): 4 On/Off Footwear (QC): 4 Toileting(FIM): 6 Toileting Hygiene (QC): 4 Toilet/Commode Transfer (QC): 4 (SBA) Additional Goals: 1-Demonstrate ADL Tasks, 2-Verbalize Understanding, 3- ImproveStrength/Jeramy 1=Demonstrate adherence to instructed precautions during ADL tasks. 2=Patient will verbalize/demonstrate understanding of assistive d evices/modifications for ADL. 3=Patient will improve strength/tolerance for activity to enable patient to perform ADL's. Speech Hand M[employer] Goals Longterm Goals Patient will maintain adequate nutrition/hydration via safe effective swallow function. Patient will participate in ongoing assessment for functional level of language abilities. RACHEL LOPEZ PT Oct 14, 2020 10:24
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
--- NOTE | 2020-10-14 11:08 | Occupational Ther Daily Note ---
OT Current Status-Daily Note Subjective Pt to d/c this date. Family training completed with sisters. Pt alert, denies pain, expresses readiness to d/c this date. ADL-Treatment Therapy Code Descriptions/Definitions Functional [place] Measure: 0=Not Assessed/NA 4=Minimal Assistance 1=Total Assistance 5=Supervision or Setup 2=Maximal Assistance 6=Modified [place] 3=Moderate Assistance 7=Complete IndependenceSCALE: Activities may be completed with or without assistive devices. 4-Msjhrjkejj-npvmtwm completes the activity by him/herself with no assistance from a helper. 5-Set-up or Clean-up Assistance-helper sets up or cleans up; patient completes activity. [place] assists only prior to or following the activity. 4-Supervision or Touching Assistance-helper provides verbal cues and/or touching/steadying and/or contact guard assistance as patient completes act ivity. Assistance may be provided throughout the activity or intermittently. 3-Partial/Moderate Assistance-helper does LESS THAN HALF the effort. [place] lifts, holds or supports trunk or limbs, but provides less than half the effort. 2-Substantial/Maximal Assistance-helper does MORE THAN HALF the effort. [place] lifts or holds trunk or limbs and provides more than half the effort. 7-Focxrgupr-vagyhg does ALL the effort. Patient does none of the effort to complete the activity. Or, the assistance of 2 or more helpers is required for the patient to complete the activity. If activity was not attempted, code reason: 7-Patient Refused. 9-Not Applicable-not attempted and the patient did not perform the activity before the current illness, exacerbation or injury. 10-Not Attempted due to Environmental Limitations-(lack of equipment, weather restraints, etc.). 88-Not Attempted due to Medical Conditions or Safety Concerns. Other Treatment Pt and sisters are walked through series of different situations with OT/ PT assist. Pt's sisters express questions and are answered. Sisters are educated on use of eye patch/ 2 hours on L/ 2 hours on R and so on throughout the day. Pt ambulates with assist from PT/ OT to follow with w/c. Sisters are educated on last shower tx this OT completed with pt and assist needed. Pt and sisters deny any questions, pt left with sisters in room end of session. Education OT Patient Education: Correct positioning, Purpose of tx/functional activities, Safety issues, Transfer techniques Teaching Recipient: Patient, Family Teaching Methods: Demonstration, Discussion Response to Teaching: Verbalize Understanding, Return Demonstration OT Short Term Goals Short Term Goals Time Frame: Oct 06, 2020 Eatin Oral hygiene: 3 Toileting hygiene: 3 Shower/bathe self: 3 Upper body dressin Lower body dressin Putting on/taking off footwear: 3 OT Fdc Goals Asphalt Smoother Goals Time Frame: Oct 20, 2020 Eating (QC): 6 Oral Hygiene (QC): 6 Toileting Hygiene (QC): 4 Shower/Bathe Self (QC): 4 Upper Body Dressing (QC): 5 Lower Body Dressing (QC): 4 On/Off Footwear (QC): 4 Additional Goals: 1-Demonstrate ADL Tasks, 2-Verbalize Understanding, 3- ImproveStrength/Jeramy 1=Demonstrate adherence to instructed precautions during ADL tasks. 2=Patient will verbalize/demonstrate understanding of assistive devices/modifications for ADL. 3=Patient will improve strength/tolerance for activity to enable patient to perform ADL's. OT Education/Plan Problem List/Assessment Assessment: Decreased Activ Tolerance, Decreased UE Strength, Dependent Transfers, Impaired Funct Balance, Impaired I ADL's, Impaired Self-Care Skills, Restricted Funct UE ROM, Visual-Perceptual Deficit Discharge Recommendations Plan/Recommendations: Continue POC Therapy Discharge Recommendati: Intermittent Supervision, Home & Family, Post Acute OT Treatment Plan/Plan of Care Treatment,Training & Education: Yes Patient would benefit from OT for education, treatment and training to promote independence in ADL's, mobility, safety and/or upper extremity function for ADL's. Plan of Care: ADL Retraining, Functional Mobility, UE Funct Exercise/Act, UE Neuromus Re-Ed/Coord Treatment Duration: Oct 20, 2020 Frequency: At least 5 of 7 days/Wk (IRF) Estimated Hrs Per Day: 1.5 hours per day Agreement: Yes Rehab Potential: Good Time/GCodes Start Time: 10:00 Stop Time: 10:15 Total Time Billed (hr/min): 15 Billed Treatment Time 1, FA (15) GAVIN SHAH OTR Oct 14, 2020 11:08
--- NOTE | 2020-10-14 11:18 | NUR ---
CM/SS DISCHARGE Patient sister Ana and SO Marry Yoon came as planned for final family training regarding patient care needs. Patient discharged to return to his home with them and under family monitor and care. DME: Finalized with [employer] for wheelchair and reyna walker cane, to be delivered by 1130. Family understand that [employer] insurance has not yet given authorization confirmation and that [place] will provide items as billable until insurance is known. [facility] in [place] has already contacted family regarding scheduling. Ana asked about how to get an itemized billing for patient's stay, provided telephone number for [facility] Billing, . Provided completed [place] Disability Placard forms and Temporary Disability Physician Statement as well as a [facility]. Patient and family indicate all their questions were answered to their satisfaction. Unit RN updated intermittently of all timelines.
--- NOTE | 2020-10-14 11:45 | NUR ---
PATITO CEDENO demonstrates understanding of discharge instructions and accurately returns instructions upon questioning. Copy of Post-Discharge Instructions given to pt and pts sister. PATITO CEDENO is able to manage continuing needs after discharge. Patients belongings returned to . Patient discharged from 223-1 on 10/14/20 at 1145. PATITO CEDENO left floor via , accompanied by .
[2020-10-14 12:45] VITALS: BP 116/65
--- NOTE | 2020-10-18 11:50 | Therapy Team Discharge Summary ---
Therapy Discharge Summary Discharge Recommendations Date of Discharge Oct 14, 2020 at 11:45 Therapy D/C Recommendations: Home w/ Family Support, Occupational Therapy Home Care Occupational Therapy Pt. was seen for occupational therapy to increase overall strength and independence with daily tasks. Pt. met several goals, but still requires assistance with others. At discharge pt. able to transfer with CGA/SBA. He did require mod assist for toileting and LE dressing/footwear. No active movement noted at discharge with right UE. However, pt. aware of UE and is able to tuck it in his gait belt while transferring. Pt. continues to have some double vision, but is not fully consistent or compliant with wearing his eye patch. Pt's family has been through family training twice, and feel confident for continued home care. Pt. has discharged home with family assist. Recommend continued OT services at home setting. Pt. has all needed equipment. Decreased Activ Tolerance, Decreased UE Strength, Dependent Transfers, Impaired Coordination, Impaired Funct Balance, Impaired I ADL's, Impaired Self-Care Skills, Restricted Funct UE ROM, Visual-Perceptual Deficit PT Offline Cutter Goals Shelter Goals PT Shelter Goals Time Frame: Oct 13, 2020 Roll Left to Right (QC): 4 (SBA) Sit to Lying (QC): 4 (SBA) Lying-Sitting on Side/Bed(QC): 4 (SBA) Sit to Stand (QC): 4 (SBA) Chair/Rtn-by-Dswwv Xfer(QC): 4 (SBA) Car Transfer (QC): 4 (SBA) Does the Patient Walk: No and Walking Goal NOT indicated Walk 10 feet (QC): 88 Walk 10ft-Uneven Surface(QC): 88 Walk 50ft with 2 Turns (QC): 88 Walk 150 ft (QC): 88 Wheel 50 feet with 2 turns (QC: 6 1 Step (curb) (QC): 88 4 Steps (QC): 88 12 Steps (QC): 88 Picking up an Object (QC): 88 OT Offline Cutter Goals Offline Cutter Goals Time Frame: Oct 20, 2020 Eating (FIM): 6 (not met) Eating (QC): 6 (not met) Oral Hygiene (QC): 6 (not met) Shower/Bathe Self (QC): 4 (not met) Upper Body Dressing (QC): 5 (met) Lower Body Dressing (QC): 4 (not met) On/Off Footwear (QC): 4 (not met) Toileting(FIM): 6 (not met) Toileting Hygiene (QC): 4 (not met) Toilet/Commode Transfer (QC): 4 (SBA) Additional Goals: 1-Demonstrate ADL Tasks, 2-Verbalize Understanding, 3- ImproveStrength/Jeramy 1=Demonstrate adherence to instructed precautions during ADL tasks. 2=Patient will verbalize/demonstrate understanding of assistive devices/modifications for ADL. 3=Patient will improve strength/tolerance for activity to enable patient to perform ADL's. Speech Shelter Goals Shelter Goals Patient will maintain adequate nutrition/hydration via safe effective swallow function. Patient will participate in ongoing assessment for functional level of language abilities. AMISH ROBERTO OT Oct 18, 2020 11:49
== END 2020-10-14 11:45 | disposition home or self-care (01) | DRG 57 ==
PROVIDERS: ADMIT Internal Medicine; ATTEND Internal Medicine
DX: I69.351 Hemiplegia and hemiparesis following cerebral infarction affecting right dominant side (principal); I69.320 Aphasia following cerebral infarction; I69.391 Dysphagia following cerebral infarction; I69.392 Facial weakness following cerebral infarction; R13.12 Dysphagia, oropharyngeal phase; R15.9 Full incontinence of feces; R32 Unspecified urinary incontinence; G40.909 Epilepsy, unspecified, not intractable, without status epilepticus; E78.2 Mixed hyperlipidemia; R11.2 Nausea with vomiting, unspecified; T42.75XA Adverse effect of unspecified antiepileptic and sedative-hypnotic drugs, initial encounter; E66.9 Obesity, unspecified; Z68.35 Body mass index [BMI] 35.0-35.9, adult; Z87.820 Personal history of traumatic brain injury; Z86.718 Personal history of other venous thrombosis and embolism; Z79.2 Long term (current) use of antibiotics; Z79.02 Long term (current) use of antithrombotics/antiplatelets; Z88.6 Allergy status to analgesic agent; Z88.8 Allergy status to other drugs, medicaments and biological substances
CPT/HCPCS: 36415; 76705; 80053; 80074; 82150; 82977; 83690; 85025